=== PATIENT | male | born 1950 | race Caucasian/White ===

== ENCOUNTER 2018-03-05 15:47 | Emergency (ER) | payer MEDICARE, SELFPAY ==
[2018-03-05] VITALS (22 sets, daily range): BP systolic 151–206; BP diastolic 79–93; PULSE 74–110; RESP 14–29; TEMP 38.2–38.5; O2SAT 87–99
--- NOTE | 2018-03-05 16:22 | ED.GENADUL_ITS ---
Medical Decision Making <Ariel Mac MD - Last Filed: 03/05/18 16:22> ECG Data Attestation: I personally reviewed and interpreted this ECG (s) as follows: Prior ECG tracings: not available for review Interpretation: sinus rhyth, rate of 97, pr 455, no acute st t wave ischemic findings <SHEREE Flores - Last Filed: 03/05/18 19:41> Patient 67 year old male presenting for evaluation of URI, fevers and N/V. symptoms began 3 days ago. On exam, he appears dehydrated. Patient lives with his son secondary to worsening dementia. Overall, he is very appropriate. He denies feeling ill at this time but is warm to touch, has crackled in RLL. History of COPD. Active smoker. Patient is febrile at 38.5, will give Tylenol. Tachycardic at 110. O2 is low at 92% but this may be baseline for the patient given his length of smoking and hx of COPD. Patient does not feel SOB. Will hydrate the patient, obtain cxr and rapid flu. Discussed with patient and family who are in agreement. Rapid flu A positive. While he is >48 hours since onset of symptoms, he is at increase risk with his age, history of COPD, plan to treat with Tamiflu. CXR reviewed by radiologist: FINDINGS: Lungs: There is mild elevation of the right hemidiaphragm. No focal consolidation. Pleural space: No pneumothorax. Heart/Mediastinum: There is bilateral hilar prominence. The cardiomediastinal contours are within normal limits. Vasculature: Vascular calcifications. Upper abdomen: Bowel is seen between the diaphragm and liver which is most consistent with Chilaiditi's sign. Correlation with any chronic pain related to this finding suggested. Bones/joints: Skeletal degenerative changes. IMPRESSION: 1. No focal consolidation or pneumothorax. 2. Mild bilateral hilar prominence. This can be seen with prominent vascular structures or lymphadenopathy. Comparison with older imaging studies, if available, would be beneficial to document long-term stability of this finding. If indicated, cross-sectional imaging could be obtained. 3. Bowel is seen between the diaphragm and liver which is most consistent with Chilaiditi's sign. Correlation with any chronic pain related to this finding suggested. Other findings as above. Patient denies history of trauma, no pain in RUQ or right side of chest. Labs significant for hyponatremia at 130, he is receiving saline while here. Potassium 3.2, will replenish this orally while here. After receiving 1L of fluid, HR in 70s Discussed findings with the patient and his family. Will treat with Tamiflu. While no consolidation noted on cxr, I remain concerned for pneumonia with the crackles in the RLL, plan to treat for pneumonia as well. Encouraged hydration. Son will contact PCP tomorrow to schedule follow up appointment next week for reevaluation. We discussed new/worseneing symptoms and when to seek care urgently once again. All of their questions and cocnerns were addressed, they are in agreement with this plan. Primary care through [facility]. HPI <Ariel Mac MD - Last Filed: 03/05/18 16:22> General Date/Time Provider Initiated Documentation: 03/05/18 15:59 . Related Data Home Medications Medication Instructions Recorded Confirmed albuterol sulfate 2 puff INHALATION Q6H PRN 03/05/18 03/05/18 atorvastatin 10 mg PO DAILY 03/05/18 03/05/18 azithromycin See Rx Instructions .ROUTE 03/05/18 .COMPLEX #3 tab cholecalciferol (vitamin D3) 5,000 unit PO DAILY 03/05/18 03/05/18 [Vitamin D3] lisinopril 20 mg PO DAILY 03/05/18 03/05/18 metoprolol succinate 75 mg PO DAILY 03/05/18 03/05/18 oseltamivir [Tamiflu] 75 mg PO BID 5 Days #10 cap 03/05/18 thiamine HCl (vitamin B1) [Vitamin 100 mg PO DAILY 03/05/18 03/05/18 B-1] Previous Rx's Medication Instructions Recorded azithromycin See Rx Instructions .ROUTE 03/05/18 .COMPLEX #3 tab oseltamivir [Tamiflu] 75 mg PO BID 5 Days #10 cap 03/05/18 <SHEREE Flores - Last Filed: 03/05/18 19:41> General Mode of arrival: ambulatory . Limitations to Documentation: altered mental status (hx of dementia) . Information obtained by: patient and family (son) . HPI Narrative: Patient is a 67 year old male, history of dementia, COPD and active smoker, brought in by son whom he lives with, for c/c of cough, fevers and malaise. Patient is currently denying feeling unwell, cough or any symptoms. Son, who cares for him, reports that his father has been ill for the past 3 days. States he has been endorsing nonproductive cough, sore throat, body aches. Reports he vomited x 4 yesterday, none today. Reports poor po intake. Has noted patient to be warm but has not objectively measured temperature. Has not taken any medications for symptomatic management today. Denies CP or SOB. Currently denying abdominal pain. General Stated Complaint: RespSymp JUSTINE: 3 <SHEREE Flores - Last Filed: 03/05/18 19:41> Review of Systems limited secondary to history of dementia, son augmented with what patient has been endorsing at home Constitutional Reports as per HPI, Reports body ache(s), Reports chills, Reports fatigue, Reports fever(s), Denies headache(s), Reports malaise and Reports poor appetite ENT Denies vertigo, Denies otalgia, Denies headache(s), Reports nasal congestion, Reports nasal discharge, Reports sore throat, Denies throat swelling and Denies tongue swelling Cardiovascular Reports as per HPI, Denies chest pain, Denies chest pain at rest, Denies chest pain with activity, Denies pedal edema, Denies lightheadedness, Denies dyspnea and Denies dyspnea on exertion Respiratory Reports as per HPI, Reports chest congestion, Reports cough, Denies hemoptysis, Denies pain with cough, Denies dyspnea and Denies dyspnea on exertion Gastrointestinal Reports as per HPI, Denies abdominal pain, Denies change in bowel habits, Denies nausea and Reports vomiting (yesterday, none today) Genitourinary Reports system reviewed and no additional complaints, except as docu (denies change in urinary habits) Musculoskeletal Reports as per HPI, Denies abnormal gait and Reports other (body aches, denies pain at this time) Integumentary/Breasts Denies rash Neurologic Reports as per HPI, Denies abnormal gait, Denies vertigo, Denies headache(s) and Reports memory loss (son reports this waxes and wanes at baseline, no recent change) Psychiatric Reports memory loss (son reports this waxes and wanes at baseline, no recent change) Endocrine Reports fatigue Allergic/Immunologic Denies throat swelling and Denies tongue swelling [facility] <Ariel Mac MD - Last Filed: 03/05/18 16:22> Social History Smoking/Tobacco Use Status: Current every day <SHEREE Flores - Last Filed: 03/05/18 19:41> Const General: cooperative, comfortable, well developed, ill appearing and No well hydrated (appears dehydrated) Nutritional Appearance: average body habitus Orientation: alert and awake HENMT Head: normal to inspection Ears: hearing grossly normal bilaterally, external ears normal and TM's normal bilaterally General nose exam: external nose normal Face and sinus: normal facial exam, sinuses nontender and face symmetric Mouth: abnormal oral mucosae (patient appears dry), lip normal, tongue normal, mucous membranes dry, no trismus and No restricted motion Throat: posterior oropharynx normal, tonsils normal and uvula midline Eyes General: appearance normal, both eyes and all related structures Neck Neck: normal visual inspection, no lymphadenopathy and no meningeal signs Resp Effort & Inspection: normal respiratory effort, able to speak in complete sentences, cough, no respiratory distress and not tachypneic Auscultation: crackles and wheezes Cardio Rate: regular rate Rhythm: regular rhythm Heart Sounds: S1 normal and S2 normal GI Inspection: normal to inspection Palpation: soft and nontender Auscultation: normal bowel sounds Skin General skin exam: no rashes or lesions noted Trauma: no lacerations or abrasions Extrem General: normal to inspection, normal capillary refill, no pedal edema and no calf tenderness Psych Appearance: grossly normal and well kempt Mental Status: mental status grossly normal Speech and Movement: speech and movement normal <SHEREE Flores - Last Filed: 03/05/18 19:41> Vital Signs Temperature 38.5 C H 03/05/18 15:55 Pulse 110 H 03/05/18 15:55 Respiratory Rate 18 03/05/18 15:55 Pulse Oximetry 92 L 03/05/18 15:55 Temperature 38.5 C H 03/05/18 15:55 Pulse 110 H 03/05/18 15:55 Respiratory Rate 18 03/05/18 15:55 Respiratory Effort 03/05/18 15:59 Blood Pressure Position Sitting 03/05/18 15:55 Pulse Oximetry 92 L 03/05/18 15:55 Oxygen Delivery Method Room Air 03/05/18 15:55 Oxygen Flow Rate 0 03/05/18 15:55 Pain Level 0 03/05/18 15:55 Lab/Test Results Lab/Test Results: 03/05/18 16:04 Nasopharynx Influenza Types A,B Antigen - Pending
--- NOTE | 2018-03-05 16:25 | DI.RAD_ITS ---
SYMPTOM/DIAGNOSIS: COUGH FRONTAL AND LATERAL CHEST: No priors for comparison. Heart size is within normal limits. There is mild prominence of the pulmonary hilum bilaterally. This likely reflects prominent pulmonary vasculature. Mediastinal adenopathy cannot be entirely excluded. The lungs are clear. No effusions or pneumothoraces are identified. Degenerative changes are seen in the spine. IMPRESSION: No acute pulmonary process. Mild prominence of the pulmonary amparo bilaterally, likely reflecting prominent vascular structures. Mediastinal adenopathy cannot be entirely excluded. Correlation with prior examinations, if available, should be considered. Follow up as clinically appropriate.
[2018-03-05] MEDS: Normal Saline 1,000 ML 1000 ML IV (16:35)
[2018-03-05] MEDS: Acetaminophen 500 MG TAB 1000 MG PO (16:37)
[2018-03-05 16:50] LABS: Abs Immature Grans 0.03 k/cumm (0.0-0.09); Absolute Basophil Count 0.02 k/cumm (0.0-0.2); Absolute Eosinophil Count 0.01 k/cumm (0.0-0.7); Absolute Lymphocyte Count 1.16 k/cumm (1.2-3.4); Absolute Neutrophil Count 6.94 k/cumm (1.2-6.7); Basophils % 0.2; Eosinophils % 0.1; HGB 14.6 g/dL (13.5-17.5); Immature Grans % 0.3; Lymphocytes % 12.4; Mean Corp. HGB Concentration 34.8 g/dL (32.0-36.0); Mean Corpuscular Hemoglobin 30.4 pg (27.0-33.0); Mean Corpuscular Volume 87.5 fL (80-95); Mean Platelet Volume 9.2 fL (8.0-11.0); Monocytes % 12.8; Neutrophils % 74.2; Platelet Count 356 x1000/uL (130-400); RBC Distribution Width 14.1 % (11.8-14.1); White Blood Cell Count 9.36 k/cumm (4.4-10.8)
[2018-03-05 17:06] LABS: ALT 17 U/L (12-78); AST 29 U/L (15-37); Albumin 3.6 g/dL (3.4-5.0); Alkaline Phosphatase 96 U/L (46-116); Anion Gap 11.4 mmol/L (3-11); BUN 14 mg/dL (7-18); Bilirubin, Total 0.5 mg/dL (0.2-1.0); CO2 28.6 mmol/L (21.0-32.0); CREATININE 0.99 mg/dL (0.70-1.30); Calcium 9.2 mg/dL (8.5-10.1); Chloride 90 mmol/L (98-107); Glucose 111 mg/dL (70-100); Potassium 3.2 mmol/L (3.5-5.1); Sodium 130 mmol/L (136-145); Total Protein 8.3 g/dL (6.4-8.2); Troponin I 0.02 ng/mL (0.00-0.06)
--- NOTE | 2018-03-05 17:13 | DI.VRAD_ITS ---
EXAM: XR Chest, 2 Views EXAM DATE/TIME: 03/05/2018 4:27 PM CLINICAL HISTORY: 67 years old, male; Pain; Other: Cough flu + TECHNIQUE: XR of the chest, 2 views. COMPARISON: No relevant prior studies available. FINDINGS: Lungs: There is mild elevation of the right hemidiaphragm. No focal consolidation. Pleural space: No pneumothorax. Heart/Mediastinum: There is bilateral hilar prominence. The cardiomediastinal contours are within normal limits. Vasculature: Vascular calcifications. Upper abdomen: Bowel is seen between the diaphragm and liver which is most consistent with Chilaiditi's sign. Correlation with any chronic pain related to this finding suggested. Bones/joints: Skeletal degenerative changes. IMPRESSION: 1. No focal consolidation or pneumothorax. 2. Mild bilateral hilar prominence. This can be seen with prominent vascular structures or lymphadenopathy. Comparison with older imaging studies, if available, would be beneficial to document long-term stability of this finding. If indicated, cross-sectional imaging could be obtained. 3. Bowel is seen between the diaphragm and liver which is most consistent with Chilaiditi's sign. Correlation with any chronic pain related to this finding suggested. Other findings as above. Dictated and Authenticated by: Radha Cartagena MD. Ordering:BINDU Valencia MD
[2018-03-05] MEDS: POTASSIUM CHLORIDE 20 MEQ, POTASSIUM CHLORIDE 10 MEQ 30 MEQ PO (17:34)
[2018-03-05] MEDS: Ibuprofen 600 MG TAB PO (17:34)
== END 2018-03-05 17:51 | disposition home or self-care (01) ==
PROVIDERS: Emergency Provider Physician Assistant
DX: J10.1 Influenza due to other identified influenza virus with other respiratory manifestations (principal); J44.9 Chronic obstructive pulmonary disease, unspecified; F17.210 Nicotine dependence, cigarettes, uncomplicated
CPT/HCPCS: 36415; 80053; 87449; 96360; 99284; 71046; 84484; 85025

== ENCOUNTER 2018-09-18 18:06 | Inpatient (IN) | payer MEDICARE, SELFPAY ==
[2018-09-18] VITALS (37 sets, daily range): BP systolic 189–257; BP diastolic 54–191; PULSE 63–98; RESP 16–40; TEMP 36.7; O2SAT 91–95
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
[2018-09-18] MEDS: Ibuprofen 400 MG TAB PO (20:33)
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
[2018-09-18 21:08] LABS: Absolute Basophil Count 0.04 k/cumm (0.0-0.2); Absolute Eosinophil Count 0.07 k/cumm (0.0-0.7); Absolute Lymphocyte Count 2.06 k/cumm (1.2-3.4); Absolute Monocyte Count 1.14 k/cumm (0.11-0.7); Absolute Neutrophil Count 18.97 k/cumm (1.2-6.7); Basophils % 0.2; Eosinophils % 0.3; HCT 40.2 % (40.0-50.0); HGB 13.7 g/dL (13.5-17.5); Immature Grans % 0.4; Lymphocytes % 9.2; Mean Corp. HGB Concentration 34.1 g/dL (32.0-36.0); Mean Corpuscular Hemoglobin 30.5 pg (27.0-33.0); Mean Corpuscular Volume 89.5 fL (80-95); Mean Platelet Volume 9.5 fL (8.0-11.0); Monocytes % 5.1; Neutrophils % 84.8; Platelet Count 323 x1000/uL (130-400); RBC 4.49 m/cumm (4.50-6.00); RBC Distribution Width 15.1 % (11.8-14.1); White Blood Cell Count 22.37 k/cumm (4.4-10.8)
[2018-09-18 21:22] LABS: ALT 15 U/L (12-78); AST 19 U/L (15-37); Alkaline Phosphatase 86 U/L (46-116); Anion Gap 6.5 mmol/L (3-11); BUN 19 mg/dL (7-18); Bilirubin, Total 0.5 mg/dL (0.2-1.0); CO2 29.5 mmol/L (21.0-32.0); CREATININE 1.12 mg/dL (0.70-1.30); Calcium 8.9 mg/dL (8.5-10.1); Chloride 101 mmol/L (98-107); Glucose 182 mg/dL (70-100); Magnesium 1.7 mg/dL (1.8-2.4); Potassium 3.6 mmol/L (3.5-5.1); Sodium 137 mmol/L (136-145)
[2018-09-18] MEDS: Omnipaque 350 MG/ML 100 ML BTL IJ (21:29)
[2018-09-18 21:33] LABS: Troponin I < 0.05 ng/mL (0.00-0.06)
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
--- NOTE | 2018-09-18 22:39 | NUR.NOTE ---
Nursing Note: Patients petal pulses are only presents via Doppler.
[2018-09-18] MEDS: Metoprolol 50 MG TAB 75 MG PO (23:26)
[2018-09-18] MEDS: Ketorolac 15 MG/ML VIAL IVP (23:26)
[2018-09-18] MEDS: metroNIDAZOLE 500 MG/100 ML BAG 100 MG IVPB (23:26)
[2018-09-18] MEDS: Lisinopril 20 MG TAB 40 MG PO (23:59)
[2018-09-19] VITALS (78 sets, daily range): BP systolic 181–248; BP diastolic 72–157; PULSE 57–82; RESP 4–25; TEMP 36.6–37.4; O2SAT 89–98
[2018-09-19] MEDS: levoFLOXacin 750 MG/150 ML BAG 100 MG IVPB (00:18)
[2018-09-19] MEDS: Normal Saline 1,000 ML 125 ML IV (00:18)
--- NOTE | 2018-09-19 01:55 | NUR.NOTE ---
Nursing Note: patient sleeping, IV med and fluids infusing well, chest tube patient with no air leak, blood pressure remains high.
[2018-09-19] MEDS: Acetaminophen 325 MG TAB 650 MG PO (03:20)
[2018-09-19] MEDS: MORPHine 2 MG/ML SYR IVP ×2 (03:22→11:23)
[2018-09-19] MEDS: Ketorolac 15 MG/ML VIAL IVP (07:00)
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
--- NOTE | 2018-09-19 08:30 | DI.RAD_ITS ---
SYMPTOM/DIAGNOSIS: PNEUMOTHORAX, S/P CHEST TUBE PORTABLE AP CHEST at 0813 am: Comparison is made with chest CT of the previous day. A chest tube has been inserted with a pigtail in the left upper lobe. There is re-expansion of the pneumothorax. Minimal densities are noted at the left lung base. The right lung appears clear. The heart size is normal. IMPRESSION: No visible pneumothorax status post placement of left sided chest tube.
--- NOTE | 2018-09-19 08:44 | DI.VRAD_ITS ---
EXAM: XR Chest, 1 View EXAM DATE/TIME: 09/19/2018 8:12 AM CLINICAL HISTORY: 67 years old, male; Device placement; Chest tube TECHNIQUE: Imaging protocol: XR of the chest, 1 view. COMPARISON: SC XR CHEST 2V PA LATERAL 09/18/2018 8:02 PM FINDINGS: Lungs: Mildly prominent central pulmonary vasculature. No overt pulmonary edema. Minimal basilar atelectasis. No consolidations. Pleural space: Left-sided pigtail catheter now demonstrated with resolution of previously noted left sided pneumothorax. Heart/Mediastinum: Cardiac size normal. Diaphragm: Elevation right hemidiaphragm. Vasculature: Atherosclerotic calcification within a tortuous aorta. Bones/joints: Left fourth and fifth posterior rib fractures. Remote left lateral rib fractures. Mild degenerative changes noted throughout the spine. IMPRESSION: 1. Left-sided pigtail catheter now demonstrated with resolution of previously noted left sided pneumothorax. 2. Minimal dependent basilar atelectasis. Dictated and Authenticated by: Carlos Manuel Hernandez MD. Ordering:MERA Pacheco MD
[2018-09-19 09:01] LABS: Abs Immature Grans 0.03 k/cumm (0.0-0.09); Absolute Basophil Count 0.03 k/cumm (0.0-0.2); Absolute Eosinophil Count 0.04 k/cumm (0.0-0.7); Absolute Lymphocyte Count 0.89 k/cumm (1.2-3.4); Absolute Monocyte Count 0.71 k/cumm (0.11-0.7); Basophils % 0.2; Eosinophils % 0.3; HCT 37.1 % (40.0-50.0); HGB 12.8 g/dL (13.5-17.5); Immature Grans % 0.2; Lymphocytes % 6.9; Mean Corp. HGB Concentration 34.5 g/dL (32.0-36.0); Mean Corpuscular Hemoglobin 30.5 pg (27.0-33.0); Mean Corpuscular Volume 88.3 fL (80-95); Mean Platelet Volume 9.5 fL (8.0-11.0); Monocytes % 5.5; Neutrophils % 86.9; Platelet Count 282 x1000/uL (130-400); RBC Distribution Width 14.9 % (11.8-14.1); White Blood Cell Count 12.89 k/cumm (4.4-10.8)
[2018-09-19 09:09] LABS: ALT 18 U/L (12-78); AST 27 U/L (15-37); Albumin 3.5 g/dL (3.4-5.0); Alkaline Phosphatase 85 U/L (46-116); Anion Gap 7.7 mmol/L (3-11); BUN 15 mg/dL (7-18); Bilirubin, Total 0.9 mg/dL (0.2-1.0); CO2 26.3 mmol/L (21.0-32.0); CREATININE 0.85 mg/dL (0.70-1.30); Calcium 8.5 mg/dL (8.5-10.1); Chloride 101 mmol/L (98-107); Glucose 121 mg/dL (70-100); Potassium 3.5 mmol/L (3.5-5.1); Sodium 135 mmol/L (136-145); Total Protein 6.9 g/dL (6.4-8.2)
--- NOTE | 2018-09-19 10:45 | DI.RAD_ITS ---
SYMPTOM/DIAGNOSIS: F/U PNEUMOTHORAX AND CHEST TUBE PORTABLE AP CHEST AT 1111 AM: Comparison is made with exam performed earlier the same day at 0813 am. There has been no change in the position of the left sided chest tube. No pneumothorax is visible. Minimal densities are seen at the left lung base.
[2018-09-19] MEDS: Albuterol/Ipratropium 3 ML UPD VIAL UPD ×2 (10:55→18:03)
[2018-09-19] MEDS: metroNIDAZOLE 500 MG/100 ML BAG 100 MG IVPB ×3 (11:07→21:31)
[2018-09-19] MEDS: Metoprolol CR 25 MG TABCR 75 MG PO (11:08)
[2018-09-19] MEDS: Atorvastatin 10 MG TAB PO (11:08)
[2018-09-19] MEDS: Lisinopril 20 MG TAB 40 MG PO (11:08)
[2018-09-19] MEDS: Bupivacaine LIPOSOME/PF 133 MG/10 ML VIAL IJ (11:40)
[2018-09-19] MEDS: Bupivacaine 0.25% Pres-Free 30 ML VIAL (11:40)
--- NOTE | 2018-09-19 11:52 | DI.VRAD_ITS ---
EXAM: XR Chest, 1 View EXAM DATE/TIME: 09/19/2018 8:51 AM CLINICAL HISTORY: 67 years old, male; Device placement; Patient HX: Chest tube on waerseal TECHNIQUE: Imaging protocol: XR of the chest, 1 view. COMPARISON: SC XR PORTABLE CHEST AP POST LINE 09/19/2018 8:13 AM FINDINGS: Tubes, catheters and devices: Stable chest tube terminates in the left upper lobe. Lungs: Unremarkable. No consolidation. Pleural space: No significant pneumothorax. Heart/Mediastinum: Stable cardiac silhouette Diaphragm: Elevated right hemidiaphragm Bones/joints: Osseous structures are stable IMPRESSION: 1. Stable chest tube terminates in the left upper lobe. 2. No significant pneumothorax. Dictated and Authenticated by: Willem Herrera MD. Ordering:ANTHONY Cid MD
[2018-09-19] MEDS: Ondansetron 4 MG/2 ML VIAL IVP (12:24)
[2018-09-19] MEDS: CIPROFLOXACIN 400 MG/200 ML BAG 200 MG IVPB (12:25)
--- NOTE | 2018-09-19 12:52 | PDOC.ANES ---
Anesthesia Note Consulted by Dr Ramos for Erector Spinae Block for painful rib fractures on pt with COPD and current painful coughing deep breathing. See anesthesia procedure note for details. Following block we were able to get patient up standing and into chair. He is answering my questions regarding pain but looks better to myself and his RN and reports mostly discomfort at chest tube site. Had one episode of emesis once in chair but he had received a dose of morphine just before block. vital signs were stable. I ordered one dose zofran 4 mg which has controlled the nausea.
--- NOTE | 2018-09-19 13:11 | NUR.NOTE ---
Shabnam Renee in to perform procedure for pain relief. Time out done, procedure started @ 1142, complete at 1205. Pt jorge alberto procedure well. OOB to chair for 3-0 mins post procedure. Pt had been medicated with 2 mg morphine at 1130, he did vomit approx 50 ml post procedure while sitting in the chair. BTB at this time.Nursing Note:
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
[2018-09-19] MEDS: Ibuprofen 600 MG TAB PO (17:35)
[2018-09-19] MEDS: Budesonide/Formoterol 160/4.5 6 GM 60 PUFF INH IH (20:10)
[2018-09-19] MEDS: Famotidine 20 MG TAB PO (20:10)
[2018-09-19] MEDS: amLODIPine 5 MG TAB PO (20:10)
[2018-09-20] MEDS: Ibuprofen 600 MG TAB PO ×3 (00:23→12:53)
[2018-09-20] MEDS: CIPROFLOXACIN 400 MG/200 ML BAG 200 MG IVPB (00:23)
[2018-09-20] MEDS: Albuterol/Ipratropium 3 ML UPD VIAL UPD (00:23)
[2018-09-20] MEDS: Normal Saline Flush 10 ML SYR IVP ×2 (00:23→08:21)
[2018-09-20 00:37] VITALS: BP 175/74; PULSE 70; RESP 18; TEMP 36; O2SAT 94
[2018-09-20 00:53] VITALS: RESP 4; RESP 5; O2SAT 95
[2018-09-20] MEDS: HYDROcodone 5/Acetaminophen 325 TAB PO (01:38)
[2018-09-20] MEDS: metroNIDAZOLE 500 MG/100 ML BAG 100 MG IVPB ×2 (04:11→10:15)
[2018-09-20 06:54] LABS: Abs Immature Grans 0.02 k/cumm (0.0-0.09); Absolute Basophil Count 0.04 k/cumm (0.0-0.2); Absolute Eosinophil Count 0.15 k/cumm (0.0-0.7); Absolute Lymphocyte Count 0.82 k/cumm (1.2-3.4); Absolute Monocyte Count 0.59 k/cumm (0.11-0.7); Absolute Neutrophil Count 7.43 k/cumm (1.2-6.7); Basophils % 0.4; Eosinophils % 1.7; HCT 33.7 % (40.0-50.0); HGB 11.5 g/dL (13.5-17.5); Immature Grans % 0.2; Lymphocytes % 9.1; Mean Corp. HGB Concentration 34.1 g/dL (32.0-36.0); Mean Corpuscular Hemoglobin 30.3 pg (27.0-33.0); Mean Corpuscular Volume 88.9 fL (80-95); Mean Platelet Volume 9.6 fL (8.0-11.0); Monocytes % 6.5; Neutrophils % 82.1; Platelet Count 207 x1000/uL (130-400); RBC 3.79 m/cumm (4.50-6.00); White Blood Cell Count 9.05 k/cumm (4.4-10.8)
--- NOTE | 2018-09-20 07:39 | DI.RAD_ITS ---
SYMPTOM/DIAGNOSIS: F/U PNEUMOTHORAX AND CHEST TUBE PA AND LATERAL CHEST AT 0729 AM: Comparison is made with the previous day's exam. There has been no change in position of the left sided chest catheter. Left fourth and fifth rib fractures are again noted. No pneumothorax is visible. There is atelectasis at the left lung base. The right lung appears clear. The heart size is normal. IMPRESSION: No evidence of pneumothorax. Left lower lobe atelectasis.
[2018-09-20 07:50] VITALS: RESP 19; O2SAT 96
--- NOTE | 2018-09-20 07:50 | DI.VRAD_ITS ---
EXAM: XR Chest, 2 Views EXAM DATE/TIME: 09/20/2018 7:38 AM CLINICAL HISTORY: 67 years old, male; Patient HX: Ptx, chest tube on waterseal TECHNIQUE: Imaging protocol: XR of the chest, 2 views. COMPARISON: SC XR PORTABLE CHEST AP POST LINE 09/19/2018 11:10 AM FINDINGS: Tubes, catheters and devices: There is a left pleural catheter in position with coil in the upper lateral thorax. Lungs: There is consolidation in the left retrocardiac region, favor atelectasis. Pleural space: No pneumothorax . Heart/Mediastinum: Unremarkable. No cardiomegaly. Vasculature: Atherosclerotic aorta. Bones/joints: Left posterior fourth and fifth rib fractures noted. IMPRESSION: Left chest tube in stable position. No pneumothorax. Small region of retrocardiac consolidation, likely atelectasis. Left posterior rib fractures again seen. Dictated and Authenticated by: Radha Smith MD. Ordering:ANTHONY Cid MD
[2018-09-20 08:15] VITALS: RESP 19; O2SAT 96
[2018-09-20] MEDS: Polyethylene Glycol 3350 17 GM PACKET PO (08:19)
[2018-09-20] MEDS: Lisinopril 20 MG TAB 40 MG PO (08:19)
[2018-09-20] MEDS: amLODIPine 5 MG TAB PO (08:20)
[2018-09-20] MEDS: Famotidine 20 MG TAB PO (08:20)
[2018-09-20] MEDS: Metoprolol CR 25 MG TABCR 75 MG PO (08:20)
[2018-09-20] MEDS: Atorvastatin 10 MG TAB PO (08:20)
[2018-09-20] MEDS: Aspirin 325 MG TAB PO (08:20)
[2018-09-20 08:30] VITALS: BP 171/75; PULSE 60; RESP 22; TEMP 36.8; O2SAT 91
[2018-09-20] MEDS: Budesonide/Formoterol 160/4.5 6 GM 60 PUFF INH IH (11:36)
--- NOTE | 2018-09-20 11:49 | W.PM.PROGNOT ---
Date of Service Date of service: 09/20/18 Time of Service: 11:50 Assessment and Plan (1) Hypertension: Current visit: Yes Status: Chronic A\\ Still Hypertensive but improved since adding amlodipine. Appreciate Dr. Arredondo's assistance with that P\\ Discharge with Amlodipine 10 mg daily Follow up with [place] PCP Qualifiers: Hypertension type: essential hypertension Qualified Code(s): I10 - Essential (primary) hypertension (2) COPD (chronic obstructive pulmonary disease): Current visit: Yes Status: Chronic A\\ No wheezing since adding symbicort 2 puff BID P\\ Will discharge with a Rx for symbicort and have him follow up with PCP at [place] Qualifiers: COPD type: unspecified COPD Qualified Code(s): J44.9 - Chronic obstructive pulmonary disease, unspecified (3) Diverticulitis large intestine: Current visit: Yes Status: Acute A\\ Incidental finding of diverticulitis on CT scan Patient asymptomatic although he has cognitive impairment and I am not sure he would tell us if he had pain P\\ D/C on antibiotics for a total of 10 days Qualifiers: Diverticulitis bleeding: without bleeding Diverticulitis complication: without perforation or abscess Qualified Code(s): K57.32 - Diverticulitis of large intestine without perforation or abscess without bleeding (4) Pneumothorax, left: Current visit: Yes Status: Acute A\\ CXR this am showed no PTX. Has been on waterseal all night. No increased SOB. SATS holding in the low 90's P\\ Chest tube removed. Will watch him for about 1 hour if no increased SOB or pain will D/C home Continue with ISP at home while awake (5) Left wrist fracture: Current visit: Yes Status: Acute A\\ pain seems controlled with ibuprofen and Tylenol Would like to avoid narcotics due to his cognitive impairment P\\ Follow up with Dr. Stewart this week Qualifiers: Encounter type: subsequent encounter Fracture type: closed Fracture healing: with routine healing Qualified Code(s): S62.102D - Fracture of unspecified carpal bone, left wrist, subsequent encounter for fracture with routine healing (6) Left rib fracture: Current visit: Yes Status: Acute A\\ Did well with the rib block. Minimal pain P\\ Ibuprofen and Tylenol for pain Qualifiers: Encounter type: initial encounter Rib fracture type: multiple ribs Fracture type: closed Qualified Code(s): S22.42XA - Multiple fractures of ribs, left side, initial encounter for closed fracture Subjective Interval history since last seen: Fred is doing well. He is sitting up in the bed watching TV comfortably. He doesn't remember braking his wrist. No complaints of SOB. Per nursing staff patient was limping a little more this am and complaining of right knee pain. When asked he tells me the pain has subsided Exam Resp Effort & Inspection: normal respiratory effort Auscultation: clear to auscultation bilaterally Cardio Rate: regular rate Rhythm: regular rhythm GI Inspection: normal to inspection Palpation: soft and nontender Extrem Right lower extremity: normal to inspection and full ROM; no edema and joint enlargement noted Other: Left thigh with an abrasion. NO signs of infection. Left lateral calf with abrasions without signs of infection Objective Objective Clinical Data: Abnormal lab results 09/20/18 Range/Units 06:35 RBC 3.79 L (4.50-6.00) m/cumm Hgb 11.5 L (13.5-17.5) g/dL Hct 33.7 L (40.0-50.0) % RDW 15.0 H (11.8-14.1) % Absolute Neutrophils 7.43 H (1.2-6.7) k/cumm Absolute Lymphocytes 0.82 L (1.2-3.4) k/cumm Vital Signs Temperature 98.2 F 09/20/18 08:30 Temperature Source Tympanic 09/20/18 08:30 Pulse 60 09/20/18 08:30 Pulse Rhythm Regular 09/20/18 07:50 Pulse 69 09/19/18 12:01 Respiratory Rate 22 09/20/18 08:30 Respiratory Effort Splinting 09/20/18 07:50 Respiratory Depth Shallow 09/20/18 07:50 Respiratory Pattern Normal 09/20/18 07:50 Blood Pressure 171/75 H 09/20/18 08:30 Blood Pressure Mean 106 09/19/18 13:58 Blood Pressure Position Supine 09/19/18 02:50 Pulse Oximetry 91 L 09/20/18 08:30 Oxygen Delivery Method Room Air 09/20/18 08:30 Oxygen Flow Rate 0 09/20/18 08:30 Pain Level 0 09/20/18 08:30 Comment 09/20/18 08:30 Intake & Output 09/19/18 09/19/18 09/20/18 11:59 23:59 11:59 Intake Total 1450 / 2050 600 / 2050 1270 / 1270 Output Total 475 / 1075 600 / 1075 425 / 425 Balance 975 / 975 0 / 975 845 / 845 Weight 139 lb 15.896 oz Intake: IV 1250 / 1850 600 / 1850 200 / 200 Oral 200 / 200 1070 / 1070 Output: Chest Tube Drainage 0 / 0 0 / 0 0 / 0 Urine 475 / 1075 600 / 1075 425 / 425 Other: Urine Color Light Mel Dark Mel Dark Mel Urine Appearance Clear Clear Clear Urine Odor None Normal Voiding Methods Urinal Urinal Urinal Laboratory Results WBC 9.05 k/cumm (4.4-10.8) 09/20/18 06:35 RBC 3.79 m/cumm (4.50-6.00) L 09/20/18 06:35 Hgb 11.5 g/dL (13.5-17.5) L 09/20/18 06:35 Hct 33.7 % (40.0-50.0) L 09/20/18 06:35 MCV 88.9 fL (80-95) 09/20/18 06:35 MCH 30.3 pg (27.0-33.0) 09/20/18 06:35 MCHC 34.1 g/dL (32.0-36.0) 09/20/18 06:35 RDW 15.0 % (11.8-14.1) H 09/20/18 06:35 Plt Count 207 x1000/uL (130-400) 09/20/18 06:35 MPV 9.6 fL (8.0-11.0) 09/20/18 06:35 Immature Gran % 0.2 09/20/18 06:35 82.1 09/20/18 06:35 9.1 09/20/18 06:35 6.5 09/20/18 06:35 1.7 09/20/18 06:35 0.4 09/20/18 06:35 Absolute Neutrophils 7.43 k/cumm (1.2-6.7) H 09/20/18 06:35 Absolute Lymphocytes 0.82 k/cumm (1.2-3.4) L 09/20/18 06:35 Absolute Monocytes 0.59 k/cumm (0.11-0.7) 09/20/18 06:35 Absolute Eosinophils 0.15 k/cumm (0.0-0.7) 09/20/18 06:35 Absolute Basophils 0.04 k/cumm (0.0-0.2) 09/20/18 06:35 Sodium 135 mmol/L (136-145) L 09/19/18 08:35 Potassium 3.5 mmol/L (3.5-5.1) 09/19/18 08:35 Chloride 101 mmol/L (98-107) 09/19/18 08:35 Carbon Dioxide 26.3 mmol/L (21.0-32.0) 09/19/18 08:35 7.7 mmol/L (3-11) 09/19/18 08:35 BUN 15 mg/dL (7-18) 09/19/18 08:35 0.85 mg/dL (0.70-1.30) 09/19/18 08:35 >= 60.00 (mL/min/1.73m2) 09/19/18 08:35 Glucose 121 mg/dL (70-100) H 09/19/18 08:35 Calcium 8.5 mg/dL (8.5-10.1) 09/19/18 08:35 Magnesium 1.7 mg/dL (1.8-2.4) L 09/18/18 20:55 0.9 mg/dL (0.2-1.0) 09/19/18 08:35 AST 27 U/L (15-37) 09/19/18 08:35 ALT 18 U/L (12-78) 09/19/18 08:35 85 U/L (46-116) 09/19/18 08:35 < 0.05 ng/mL (0.00-0.06) 09/18/18 20:55 6.9 g/dL (6.4-8.2) 09/19/18 08:35 3.5 g/dL (3.4-5.0) 09/19/18 08:35 Patient ABO/Rh A Positive 09/18/18 20:55 Antibody Screen Positive 09/18/18 20:55 Antibody Identification Anti-E 09/18/18 20:55 Antigen Identification E Antigen - NEGATIVE 09/18/18 20:55
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
[2018-09-20] MEDS: Amoxicillin 875/Clav. 125 TAB PO (15:09)
== END 2018-09-20 15:20 | disposition home or self-care (01) | DRG 200 ==
LOC: ER 23:32 → ICU 09-19 07:05 → MS 09-20 13:04 → ICU 09-24 09:38
PROVIDERS: Admitting Provider Surgery; Emergency Provider Student in an Organized Health Care Education/Training Program; PCP Nurse Practitioner Family; Visit Provider Surgery
DX: S27.0XXA Traumatic pneumothorax, initial encounter (principal); S52.572A Other intraarticular fracture of lower end of left radius, initial encounter for closed fracture; S52.615A Nondisplaced fracture of left ulna styloid process, initial encounter for closed fracture; S22.42XA Multiple fractures of ribs, left side, initial encounter for closed fracture; R07.81 Pleurodynia; T14.8XXA Other injury of unspecified body region, initial encounter; V86.59XA Driver of other special all-terrain or other off-road motor vehicle injured in nontraffic accident, initial encounter; I10 Essential (primary) hypertension; J44.9 Chronic obstructive pulmonary disease, unspecified; I25.10 Atherosclerotic heart disease of native coronary artery without angina pectoris; F17.210 Nicotine dependence, cigarettes, uncomplicated
CPT/HCPCS: 32551; 36415; 71045; 74177; 76942; 80053; 86850; 86900; 86901; 94640; 96361; 96365; 96366; 96367; 96375; 99221; 99223; 99239; 99291; NC; 70450; 71046; 71260; 72125; 73030; 73110; 83735; 84484; 85025; 86870; 86902; J0744; J1885; J1956; J2270; J2405; J3490; J7620

== ENCOUNTER 2018-10-09 10:59 | Day surgery (SDC) | payer MEDICARE, SELFPAY ==
[2018-10-09 11:13] VITALS: BP 143/68; PULSE 61; RESP 18; TEMP 36.5; O2SAT 98
[2018-10-09] MEDS: Lactated Ringers 1,000 ML 80 ML IV (12:00)
[2018-10-09] MEDS: ceFAZolin 2 GM/50 ML BAG IVPB (12:22)
--- NOTE | 2018-10-09 13:58 | W.PM.DSUDISC ---
Discharge Plan Disposition Patient Disposition: HOME Condition: Good Discharge Details Reason For Visit: (L) RADUIS FRACTURE Attending Provider: Serjio Aguirre Primary Care Provider: Mai Ahuja Home Meds and New Rx's Prescriptions: New acetaminophen 500 mg tablet 500 mg PO Q8H PRN (Reason: pain) Qty: 60 RF: 3 Continued atorvastatin 10 mg Tablet 10 mg PO DAILY RF: 0 lisinopril 20 mg Tablet 40 mg PO DAILY RF: 0 thiamine HCl (vitamin B1) [Vitamin B-1] 100 mg Tablet 100 mg PO DAILY RF: 0 metoprolol succinate 25 mg Tablet Extended Release 24 Hr 75 mg PO DAILY RF: 0 albuterol sulfate 90 mcg/actuation Hfa Aerosol Inhaler 2 puff INHALATION Q6H PRNRF: 0 aspirin 325 mg Tablet 325 mg PO DAILY RF: 0 amlodipine 5 mg Tablet 10 mg PO DAILY Qty: 60 RF: 0 Symbicort 160-4.5 mcg/actuation Hfa Aerosol Inhaler 2 puff inhalation BID Qty: 6 RF: 1 famotidine 20 mg Tablet 20 mg PO BID Qty: 60 RF: 0 polyethylene glycol 3350 17 gram Powder In Packet 17 g PO DAILY PRN (Reason: constipation) Qty: 30 RF: 0 hydrocodone-acetaminophen 5-325 mg Tablet 1 tab PO Q6H PRN PRN (Reason: pain) Qty: 8 RF: 0 Changed ibuprofen [IBU] 600 mg Tablet 600 mg PO Q8H PRN PRN (Reason: pain) Qty: 30 RF: 3 Discontinued acetaminophen [Tylenol] 325 mg Tablet 650 mg PO Q6H PRN PRN (Reason: pain) Qty: 30 RF: 0 Discharge Instructions Additional Instructions: Activity: You should keep the hand/wrist elevated as much as possible for the first few days. You may use the other fingers as tolerated but avoid trying to do too much too soon. You may perform light activities with the splint in place. Dressing/Cast: Your splint should stay in place at all times. Do NOT get it wet. You may loosen the WILMER wrap if you feel it is too tight and then rewrap more loosely. Medications: - You should take Tylenol and Ibuprofen for baseline pain control. - You have been prescribed a stronger pain medication, Hydrocodone, for breakthrough pain. - You may apply ice over the wrist, just double bag so it doesn't get wet. Follow-up: 10-14 days Referrals: Serjio Aguirre MD [ [facility] STAFF PHYSICIAN] - Equipment/Supplies: Splint and Sling Activity:: Elevate Remove Dressings/Wound Care:: Do Not Remove Shower/Bathe:: Cover Diet:: As Tolerated Discharge Orders Discharge Orders: Discharge Order (Routine); Ordered 10/09/18 Ordered By: Serjio Aguirre DS: Diagnosis Discharge Diagnosis (1) Closed left radial fracture: Status: Acute
[2018-10-09 14:16] VITALS: BP 185/62; PULSE 58; RESP 13; TEMP 36.3; O2SAT 97
[2018-10-09 14:20] VITALS: BP 197/93; PULSE 55; RESP 16; TEMP 36.3; O2SAT 97
[2018-10-09 14:25] VITALS: BP 174/57; PULSE 56; RESP 20; TEMP 36.3; O2SAT 97
[2018-10-09 14:40] VITALS: BP 181/69; PULSE 55; RESP 20; TEMP 36.3; O2SAT 96
--- NOTE | 2018-10-09 14:47 | DI.RAD_ITS ---
SYMPTOM/DIAGNOSIS: LEFT DISTAL RADIUS FRACTURE LEFT WRIST: Two views are seen of the left wrist. The patient is now status post open reduction, internal fixation of the distal left radial fracture. Alignment appears near anatomic. Orthopaedic hardware appears in good position. There is a nondisplaced ulnar styloid process fracture present.
[2018-10-09] MEDS: HYDROcodone 5/Acetaminophen 325 TAB PO (15:12)
[2018-10-09 15:41] VITALS: BP 175/74; PULSE 60; RESP 18; TEMP 35.9; O2SAT 92
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
[2018-10-10] MEDS: Bupivacaine LIPOSOME/PF 133 MG/10 ML VIAL IJ (12:15)
[2018-10-10] MEDS: Bupivacaine 0.25% Pres-Free 30 ML VIAL (12:15)
== END 2018-10-09 16:14 | disposition home or self-care (01) ==
PROVIDERS: PCP Nurse Practitioner Family; Visit Provider Student in an Organized Health Care Education/Training Program
PROC: (CPT 25607; principal; 2018-10-09 12:00)
DX: S52.502A Unspecified fracture of the lower end of left radius, initial encounter for closed fracture (principal); V86.95XA Unspecified occupant of 3- or 4- wheeled all-terrain vehicle (ATV) injured in nontraffic accident, initial encounter; G89.18 Other acute postprocedural pain; F17.210 Nicotine dependence, cigarettes, uncomplicated; I10 Essential (primary) hypertension; J44.9 Chronic obstructive pulmonary disease, unspecified
CPT/HCPCS: 25607; C1713; 73100; 73110; J0690; J1100; J2250; J2405; L3650

== ENCOUNTER 2018-10-09 12:52 | Outpatient (CLI) | payer MEDICARE, SELFPAY ==
--- NOTE | 2018-10-09 11:55 | DI.RAD_ITS ---
SYMPTOM/DIAGNOSIS: EVAL CLOSED LT RADIUS FRACTURE, L INCLUDE LUP TO MID SHAFT, S52.92XA LEFT WRIST: Three views. Comparison 09/18/18 There is a comminuted fracture involving the distal left radius. The fracture extends obliquely and extends from the distal diaphysis in to the articular surface. There is mild impaction of the fracture. There is also mild lateral angulation of the distal fracture. There is involvement of the articular surface of the distal radius. There is a nondisplaced fracture through the base of the ulnar styloid process. Overall there does not appear to be significant change in alignment of the fracture compared to the examination from 09/18/18 No new fractures or dislocations are appreciated. Vascular calcifications are seen in the soft tissues. There is again seen an ovoid radiopaque foreign body seen in the space adjacent to the first metacarpal. IMPRESSION: 1. Angulated mildly impacted comminuted intra-articular fracture of the distal left radius. 2. Ulnar styloid process fracture.
== END 2018-10-09 13:12 ==
PROVIDERS: PCP Nurse Practitioner Family; Visit Provider Student in an Organized Health Care Education/Training Program
DX: S52.572D Other intraarticular fracture of lower end of left radius, subsequent encounter for closed fracture with routine healing (principal); S52.615D Nondisplaced fracture of left ulna styloid process, subsequent encounter for closed fracture with routine healing
CPT/HCPCS: 73110

== ENCOUNTER 2018-10-26 11:38 | Outpatient (CLI) | payer MEDICARE, SELFPAY ==
--- NOTE | 2018-10-26 10:31 | DI.RAD_ITS ---
SYMPTOM/DIAGNOSIS: F/U LEFT WRIST: 10/26 Three views were obtained and show previously described fracture of the distal radius with plate and screw fixation in place. Alignment appears unchanged in comparison with the intraoperative films of October 09. Ulnar styloid fracture again noted as well.
== END 2018-10-26 11:58 ==
PROVIDERS: PCP Nurse Practitioner Family; Referring Provider Nurse Practitioner Family; Visit Provider Student in an Organized Health Care Education/Training Program
DX: S52.92XA Unspecified fracture of left forearm, initial encounter for closed fracture (principal); X58.XXXA Exposure to other specified factors, initial encounter
CPT/HCPCS: 73110; L3908

== ENCOUNTER 2020-08-21 10:13 | Emergency (ER) | payer MEDICARE, SELFPAY ==
[2020-08-21] VITALS (86 sets, daily range): BP systolic 86–222; BP diastolic 54–123; PULSE 56–98; RESP 11–26; TEMP 36.5; O2SAT 77–98
--- NOTE | 2020-08-21 10:15 | RT.EKG_ITS ---
APPROVED REPORT Exam: Resting ECG Reason for Exam: facial droop, possible stroke Patient Location: E HR:71 bpm ECG Measurements Heart Rate 71 AXIS NC 167 P 80 QRSd 98 QRS 2 QT 422 T 69 QTc 457 Conclusion Sinus rhythm...normal P axis, V-rate 60- 99 Ventricular premature complex...V complex w/ short R-R interval Anterior infarct, old...Q >40mS, abnormal ST-T, V2-V5. No STEMI. I have reviewed and interpreted ECG and agree with software generated interpretation.
--- NOTE | 2020-08-21 10:30 | DI.CT_ITS ---
Exam(s) CT BRAIN NECK CTA EXAM: CT BRAIN NECK CTA CLINICAL HISTORY: right facial droop, dysphagia. TECHNIQUE: Imaging Protocol: Axial CT angiography was performed with multi-slice acquisition and mu lti-planar and/or 3D reconstructions. CONTRAST MATERIAL: Intravenous: Omnipaque 350 Contrast volume:structured data in ml COMPARISON: CT CT CHEST/ABD/PEL W from 09/18/[address] HEAD CERVICAL SPINE WO from 09/18/[address] HEAD CERVICAL SPINE WO from 09/18/2018 FINDINGS: CT Head W/O and W contrast: Ventricles and Extra axial spaces: Normal in size and morphology for the patient's age. Hemorrhage: None. Cerebral parenchyma: Old left occipital infarct which appears more prominent compared the previous ex am. Subacute appearing infarct in the left frontal lobe with some gyral enhancement. No evidence of mass. White matter changes of small vessel disease. [id number] atrophy. Midline shift: None. Brainstem/Cerebellum: Normal. Calvarium: Normal. Visualized Paranasal sinuses/Mastoids: Clear. Soft Tissues: Unremarkable. Enhancement: Normal. CTA Brain W: Internal Carotid Arteries: Calcification. No evidence of significant stenosis or aneurysm. Middle Cerebral Arteries: Right: No aneurysm, occlusion or significant stenosis. Left: No aneurysm, occlusion or significant stenosis. Anterior Cerebral Arteries: Right: No aneurysm, occlusion or significant stenosis. Left: No aneurysm, occlusion or significant stenosis. Posterior cerebral Arteries: Right: No aneurysm, occlusion or significant stenosis. Left: Focal area of severe narrowing distal P1 segment. Distally normal diameter. No aneurysm. Vertebral Arteries: Right: No aneurysm, occlusion or significant stenosis. Left: No aneurysm, occlusion or significant stenosis. Basilar Artery: No aneurysm, occlusion or significant stenosis. CTA Neck W: Common Carotid: Right: Heavy calcification proximally no aneurysm, occlusion or significant stenosis. Left: Heavy calcification proximally. No aneurysm, occlusion or significant stenosis. External Carotid: Right: No aneurysm, occlusion or significant stenosis. Left: No aneurysm, significant stenosis or occlusion. Internal Carotid: Right: Heavy calcification causing critical stenosis. No aneurysm,, dissection occlusion. Left: Heavy calcification proximally causing severe to critical stenosis.No aneurysm, dissection or occlusion. Vertebral Artery: Right: Heavy calcification origin. No aneurysm, occlusion or significant stenosis. Left: Heavy calcification at origin. No aneurysm, occlusion or significant stenosis. Lung Apices: Emphysematous changes. Bones: Degenerative disc changes and facet degenerative changes. Soft Tissues: Normal. IMPRESSION: 1. severe stenosis distal left P1 segment of the left posterior cerebral artery.. 2. Old left occipital infarct. Subacute appearing left frontal infarct.. 3. Severe to critical stenosis of both proximal internal carotid arteries. RADIATION DOSE DELIVERED: 1,890.11mGy.cm Total DLP DATA REPOSITORY: All CT scans at this facility are submitted to the National Radiology Data Registry (NRDR) Dose Index Registry (DIR) with the [employer] (A[employer]). RADIATION OPTIMIZATION: All CT scans at this facility use at least one of these dose optimization te chniques: automated exposure control; mA and/or kV adjustment per patient size (includes targeted exa ms where dose is matched to clinical indication); or iterative reconstruction.
--- NOTE | 2020-08-21 10:30 | DI.RAD_ITS ---
Exam(s) XR PORTABLE CHEST AP EXAM: XR PORTABLE CHEST AP CLINICAL HISTORY: confusion, dysphasia TECHNIQUE: 2D digital imaging was performed. COMPARISON: CR XR CHEST 2V PA LATERAL from 09/20/2018 FINDINGS: LUNGS: Clear. No pleural abnormality seen. HEART: Normal. MEDIASTINUM: Normal. BONES: old left rib fractures. IMPRESSION: No acute pulmonary findings. DATA REPOSITORY: RADIATION DOSE DELIVERED:
[2020-08-21 10:43] LABS: Abs Immature Grans 0.03 10^3/uL (0.0-0.06); Absolute Basophil Count 0.06 10^3/uL (0.0-0.2); Absolute Eosinophil Count 0.19 10^3/uL (0.0-0.7); Absolute Lymphocyte Count 2.64 10^3/uL (1.2-3.4); Absolute Monocyte Count 0.68 10^3/uL (0.1-0.8); Absolute Neutrophil Count 6.18 10^3/uL (1.2-6.7); Basophils % 0.6; Eosinophils % 1.9; HGB 14.1 g/dL (13.5-17.5); Immature Grans % 0.3; MCH 30.5 pg (27.0-33.0); MCHC 33.6 % (32.0-36.0); MCV 90.9 fL (80-95); MPV 9.2 fL (8.0-11.0); Neutrophils % 63.2; Nucleated RBC 0 %; Platelet Count 355 10^3/uL (130-400); RBC 4.62 10^6/uL (4.36-5.78); RDW 14.5 % (11.8-14.1); RDW-SD 48.7 fL; WBC 9.78 10^3/uL (4.4-10.8)
[2020-08-21 10:59] LABS: ALT 17 U/L (16-63); AST 21 U/L (15-37); Albumin 3.9 g/dL (3.4-5.0); Alkaline Phosphatase 97 U/L (46-116); Anion Gap 9.9 mmol/L (3-11); BUN 11 mg/dL (7-18); Bilirubin, Total 0.6 mg/dL (0.2-1.0); CO2 25.1 mmol/L (21.0-32.0); CREATININE 1.5 mg/dL (0.70-1.30); Calcium 9.3 mg/dL (8.5-10.1); Chloride 104 mmol/L (98-107); Estimated GFR 46.27 (mL/min/1.73m2); Glucose 124 mg/dL (74-106); Magnesium 1.9 mg/dL (1.8-2.4); Potassium 3.8 mmol/L (3.5-5.1); Sodium 139 mmol/L (136-145); Total Protein 7.4 g/dL (6.4-8.2)
[2020-08-21 11:08] LABS: Troponin I < 0.05 ng/mL (<0.06)
--- NOTE | 2020-08-21 11:15 | W.ED.GENAD ---
Discharge Plan Discharge Details Chief Complaint: CVA/TIA Primary Care Provider: Mai Ahuja ED Provider: Annie Vazquez Home Meds and New Rx's Prescriptions: New prednisone 20 mg tablet 20 mg PO DAILY Qty: 4 RF: 0 epinephrine 0.3 mg/0.3 mL auto-injector 0.3 mg IM ONCE Qty: 2 RF: 1 No Action atorvastatin 10 mg Tablet 10 mg PO DAILY RF: 0 lisinopril 20 mg Tablet 40 mg PO DAILY RF: 0 metoprolol succinate 25 mg Tablet Extended Release 24 Hr 50 mg PO DAILY RF: 0 albuterol sulfate 90 mcg/actuation Hfa Aerosol Inhaler 2 puff INHALATION Q6H PRNRF: 0 aspirin 325 mg Tablet 325 mg PO DAILY RF: 0 amlodipine 5 mg Tablet 10 mg PO DAILY Qty: 60 RF: 0 budesonide-formoterol [Symbicort] 160-4.5 mcg/actuation Hfa Aerosol Inhaler 2 puff inhalation BID Qty: 6 RF: 1 acetaminophen 500 mg tablet 500 mg PO Q8H PRN (Reason: pain) Qty: 60 RF: 3 ibuprofen [IBU] 600 mg Tablet 600 mg PO Q8H PRN PRN (Reason: pain) Qty: 30 RF: 3 potassium chloride 10 mEq Tablet Extended Release 10 meq PO DAILY RF: 0 Discharge Data Discharge Date/Time-TO BE ENTERED AT DEPARTURE: 08/21/20 18:00 Medical Decision Making <SHEREE Bloom - Last Filed: 08/22/20 16:22> Patient is alert and oriented, he has an obvious right-sided deficit including his right upper extremity with pronator drift, decreased hand grasp, and some right-sided facial droop in addition to slurred speech Patient has a CT with findings consistent with a subacute right-sided infarct of the superior and lateral parietal occipital lobe but a chronic infarct noted additionally He also has a left frontal infarct I care patient additionally has a P1 segment of the left posterior cerebral artery that may be severe stenosis or focal occlusion or short segment of thrombus, this was discussed with the virtual radiologist, Dr. Xochitl Hsieh This was also discussed with on-call neurologist, Dr. Castro Leavitt who recommended supportive measures only I did consult with our hospitalist and unfortunately we do not have neurology or echocardiogram available to us and patient will need admission to hospital where these interventions and observation can be applied [facility] at [facility], patient received a dose of aspirin and his blood pressure medications, and he has remained stable throughout the encounter and is maintaining secretions, swallow study and p.o. challenge were performed prior to administration of aspirin EKG was reviewed with my attending physician without obvious evidence of dysrhythmia blood pressure 192/72 at reevaluation CODE STATUS is DNR/DNI after discussion with son and patient, son patient DPOA Changes discussed with the admitting hospitalist, Dr. Brenner admitting hospitalist who is accepted this patient in transfer, they are requesting that he patient have a negative Covid test prior to being transferred to this hospital, this is pending at this time Differential Diagnosis Differential Diagnosis: CVA, TIA, urinary tract infection, electrolyte abnormality Medical Records Medical records reviewed: Yes I reviewed the patient's medical records. Lab Data Lab results reviewed: Yes I reviewed the patient's lab results. ECG Data Attestation: I personally reviewed and interpreted this ECG (s) as follows: <SHEREE Flores - Last Filed: 08/21/20 17:55> Care transition myself from Josephine Chisholm PA-C. Please see her initial note regarding history, presentation and exam. In brief, patient is a pleasant 69-year-old male who presented today after 1 week of intermittent neurological deficits. Deficits have been more persistent today with right-sided upper extremity drift, hand weakness and facial droop. Patient is also noted to have slurred speech. Some of the symptoms began last night was the first noted this morning. Patient has received aspirin. [facility] with [facility]-19 testing pending. COVID-19 testing is negative. Patient will be transferred via EMS to the [facility] for further care. I did speak with patient and family regarding transfer and they are in agreement with this plan. HPI <SHEREE Bloom - Last Filed: 08/22/20 16:22> General Mode of arrival: ambulatory. Date/Time Provider Initiated Documentation: 08/21/20 10:25. Limitations to Documentation: no limitations. Information obtained by: patient and family. HPI Narrative: This 69-year-old male presents with past medical history of COPD, peripheral vascular disease, hypertension, family states that over the past 2 days he has had some increased confusion and difficulties with speech. This morning when he awoke they thought he had a possible right-sided facial droop. Last seen well at bedtime around 9. Patient denies any current complaints. They also state patient has had some difficulty with walking and feels speech is worsened today. Patient and family deny known falls or injuries. [facility] No changes in medications. Denies additional complaints at this time. Patient unfortunately is a poor historian so large amount of history is obtained from patient and partner. Related Data Home Medications Medication Instructions Recorded Confirmed albuterol sulfate 2 puff INHALATION Q6H PRN 03/05/18 08/21/20 atorvastatin 10 mg PO DAILY 03/05/18 08/21/20 lisinopril 40 mg PO DAILY 03/05/18 08/21/20 metoprolol succinate 50 mg PO DAILY 03/05/18 08/21/20 aspirin 325 mg PO DAILY 09/18/18 08/21/20 amlodipine 10 mg PO DAILY #60 tab 09/20/18 08/21/20 budesonide-formoterol [Symbicort] 2 puff INHALATION BID #6 g 09/20/18 08/21/20 acetaminophen 500 mg PO Q8H PRN #60 tab 10/09/18 08/21/20 ibuprofen [IBU] 600 mg PO Q8H PRN PRN #30 tab 10/09/18 08/21/20 epinephrine 0.3 mg IM ONCE #2 ea 08/21/20 potassium chloride 10 meq PO DAILY 08/21/20 08/21/20 prednisone 20 mg PO DAILY #4 tab 08/21/20 Previous Rx's Medication Instructions Recorded amlodipine 10 mg PO DAILY #60 tab 09/20/18 budesonide-formoterol [Symbicort] 2 puff INHALATION BID #6 g 09/20/18 acetaminophen 500 mg PO Q8H PRN #60 tab 10/09/18 ibuprofen [IBU] 600 mg PO Q8H PRN PRN #30 tab 10/09/18 epinephrine 0.3 mg IM ONCE #2 ea 08/21/20 prednisone 20 mg PO DAILY #4 tab 08/21/20 Allergies Allergy/AdvReac Type Severity Reaction Status Date / Time clopidogrel [From Plavix] Allergy Unknown Unverified 08/21/20 10:29 simvastatin Allergy Unknown Unverified 08/21/20 10:29 General Stated Complaint: CVA/TIA JUSTINE: 2 Review of Systems <SHEREE Bloom - Last Filed: 08/22/20 16:22> All systems reviewed & are unremarkable except as noted in HPI and below PFSH <SHEREE Bloom - Last Filed: 08/22/20 16:22> Medical History Abnormal gait Alcohol abuse Cataract COPD (chronic obstructive pulmonary disease) Coronary artery disease Depression Diverticulitis large intestine Erectile dysfunction Hepatitis C treated with Ribavirin and interferon. PCR qual neg 11/1999 Hypertension Impaired cognition Left rib fracture Memory loss Peripheral vascular disease of extremity with claudication Pneumothorax, left Tobacco dependence Vitamin D deficiency Surgical History (Updated 10/26/18 @ 11:00 by SHEREE Dodge) H/O right knee surgery Status post closed fracture of femur s/p repair Family History (Updated 10/08/18 @ 08:35 by Sophia Lucas RN) Other Cancer Diabetes Heart disease Social History Smoking/Tobacco Use Status: Current every day Tobacco Type: cigarettes Smoking risk assessment performed?: Yes Alcohol Intake: former Drug use: Daily Substance use type: marijuana Details: Daughter in law states pt hasnt had any alcohol in 8 months Marijuana yesterday Household members: family Housing: house Number of Children: 1 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retired [employer] Do you feel safe at home: Yes Do you feel safe in your relationship?: Yes Additional Social history: Patient lives with his son, daughter in-law and grandson Patient receives his care at the [facility] Exam <SHEREE Bloom - Last Filed: 08/22/20 16:22> Const General: cooperative and no acute distress HENMT Other: visible sign of trauma Eyes Pupils: PERRL Chest Chest: normal inspection of the chest Resp Effort & Inspection: normal respiratory effort Auscultation: clear to auscultation bilaterally Cardio Rate: regular rate Rhythm: regular rhythm Skin General skin exam: no rashes or lesions noted Neuro General: patient alert Speech: abnormal speech Gait: ataxic Motor: pronator drift Other: Positive [id number], pronator drift, weakness, right lower extremity with strength and sensation intact, mild right-sided facial droop Heel rubio intact bilateral lower extremities Course <SHEREE Bloom - Last Filed: 08/22/20 16:22> Vital Signs Vital signs: Vital Signs Temperature 36.5 C 08/21/20 10:22 Pulse 69 08/21/20 10:22 Respiratory Rate 21 08/21/20 10:22 Blood Pressure 192/72 H 08/21/20 10:22 Pulse Oximetry 96 08/21/20 10:22 Temperature 36.5 C 08/21/20 10:22 Temperature Source Skin 08/21/20 10:22 Pulse 62 08/21/20 10:46 Pulse 68 08/21/20 10:50 Respiratory Rate 14 08/21/20 10:50 Respiratory Effort Non-Labored 08/21/20 10:33 Respiratory Depth Normal 08/21/20 10:33 Respiratory Pattern Normal 08/21/20 10:33 Blood Pressure 174/65 H 08/21/20 10:46 Blood Pressure Mean 93 08/21/20 10:46 Blood Pressure Position Supine 08/21/20 10:22 Pulse Oximetry 96 08/21/20 10:50 Pain Level 0 08/21/20 10:22 Lab/Test Results Lab/Test Results: Laboratory Tests Range/Units 08/21/20 08/21/20 10:25 10:25 WBC (4.4-10.8) 10^3/uL 9.78 RBC (4.36-5.78) 10^6/uL 4.62 Hgb (13.5-17.5) g/dL 14.1 Hct (40.0-50.0) % 42.0 MCV (80-95) fL 90.9 MCH (27.0-33.0) pg 30.5 MCHC (32.0-36.0) % 33.6 RDW (11.8-14.1) % 14.5 H Plt Count (130-400) 10^3/uL 355 MPV (8.0-11.0) fL 9.2 Immature Gran % 0.3 Neutrophils % 63.2 Lymphocytes % 27.0 Monocytes % 7.0 Eosinophils % 1.9 Basophils % 0.6 Nucleated RBC % % 0 Absolute Neutrophils (1.2-6.7) 10^3/uL 6.18 Absolute Lymphocytes (1.2-3.4) 10^3/uL 2.64 Absolute Monocytes (0.1-0.8) 10^3/uL 0.68 Absolute Eosinophils (0.0-0.7) 10^3/uL 0.19 Absolute Basophils (0.0-0.2) 10^3/uL 0.06 Sodium (136-145) mmol/L 139 Potassium (3.5-5.1) mmol/L 3.8 Chloride (98-107) mmol/L 104 Carbon Dioxide (21.0-32.0) mmol/L 25.1 Anion Gap (3-11) mmol/L 9.9 BUN (7-18) mg/dL 11 Creatinine (0.70-1.30) mg/dL 1.5 H Estimated GFR/1.73 m2 (mL/min/1.73m2) 46.27 Glucose (74-106) mg/dL 124 H Calcium (8.5-10.1) mg/dL 9.3 Magnesium (1.8-2.4) mg/dL 1.9 Total Bilirubin (0.2-1.0) mg/dL 0.6 AST (15-37) U/L 21 ALT (16-63) U/L 17 Alkaline Phosphatase (46-116) U/L 97 Troponin I (<0.06) ng/mL < 0.05 Total Protein (6.4-8.2) g/dL 7.4 Albumin (3.4-5.0) g/dL 3.9 Critical Care Time <SHEREE Bloom - Last Filed: 08/22/20 16:22> Critical Care Time Critical Care Time: Yes Total Critical Care Time: 45 Attestation: CTA ordered for diagnostic testing with noted CVA, radiologist consultation and discussion, [facility] neurology consultation, aspirin administration, telemetry monitoring, blood pressure monitoring and oral supplementation, transfer Sign Out <SHEREE Bloom - Last Filed: 08/22/20 16:22> Sign Out Data: Sign Out Comment: cva,pending transfer to [facility] Last updated by Josephine Chisholm PA at 08/21/20 17:02
[2020-08-21] MEDS: Omnipaque 350 MG/ML 100 ML BTL 85 ML IJ (11:53)
[2020-08-21] MEDS: Normal Saline - Diluent 50 ML VIAL IV (11:54)
[2020-08-21 12:00] LABS: Bilirubin Negative (Negative); Blood Negative (Negative); Clarity Clear (Clear); Glucose Negative (Negative); Ketones Negative (Negative); Leukocyte Esterase Negative (Negative); Nitrite Negative (Negative); Specific Gravity 1.015 (1.005-1.025); Urobilinogen 0.2 EU/dL (Up TO 0.2)
--- NOTE | 2020-08-21 12:31 | DI.VRAD_ITS ---
PROCEDURE INFORMATION: Exam: XR Chest Exam date and time: 08/21/2020 10:36 AM Age: 69 years old Clinical indication: Other: Confusion, dysphagia TECHNIQUE: Imaging protocol: XR of the chest. Views: 1 view. COMPARISON: [facility] XR CHEST 2V PA LATERAL 09/20/2018 7:27 AM FINDINGS: Limitations: Left costophrenic sulcus partially excluded from the image. Lungs: Unremarkable. No consolidation. Pleural spaces: Unremarkable. No pleural effusion. No pneumothorax. Heart/Mediastinum: Unremarkable. No cardiomegaly. Bones/joints: Unremarkable. IMPRESSION: No acute findings. Dictated and Authenticated by: Mara Stanton MD. Ordering:CHARLENE Burton MD
--- NOTE | 2020-08-21 13:44 | DI.VRAD_ITS ---
Addendum created by Shayy Sandoval MD on 08/21/2020 1:52:08 PM EDT: Critical results: THIS REPORT CONTAINS FINDINGS THAT MAY BE CRITICAL / URGENT (stroke protocol) TO PATIENT CARE. The findings were verbally communicated via telephone conference with Josephine Chisholm at 1:51 PM EDT on 08/21/2020. The findings were acknowledged and understood. Initial report created on 08/21/2020 1:43:17 PM EDT: PROCEDURE INFORMATION: Exam: CT Angiography Head With Contrast, Arteriography Exam date and time: 08/21/2020 10:36 AM Age: 69 years old Clinical indication: Other: Right facial droop, dysphagia TECHNIQUE: Imaging protocol: Computed tomography angiography of the head with contrast. Exam focused on the arteries. 3D rendering (Not supervised by radiologist): MIP and/or 3D reconstructed images were created by the technologist. Contrast material: OMNIPAQUE 350; Contrast volume: 85 ml; Contrast route: INTRAVENOUS (IV); COMPARISON: CT HEAD CERVICAL SPINE WO 09/18/2018 9:34 PM FINDINGS: ANTERIOR CIRCULATION: Right internal carotid artery: There is calcification of the intracranial right internal carotid artery. No hemodynamically significant degrees of stenosis, thrombosis, or occlusion. No evidence of aneurysm. Right middle cerebral artery: Unremarkable. No occlusion or significant stenosis. No aneurysm. Right anterior cerebral artery: Unremarkable. No occlusion or significant stenosis. No aneurysm. Left internal carotid artery: There is calcification of the intracranial left internal carotid artery. No hemodynamically significant degrees of stenosis, thrombosis, or occlusion. No evidence of aneurysm. Left middle cerebral artery: Unremarkable. No occlusion or significant stenosis. No aneurysm. Left anterior cerebral artery: Unremarkable. No occlusion or significant stenosis. No aneurysm. POSTERIOR CIRCULATION: Right vertebral artery: Unremarkable. No occlusion or significant stenosis. No aneurysm. Left vertebral artery: Unremarkable. No occlusion or significant stenosis. No aneurysm. Basilar artery: No occlusion or significant stenosis. No aneurysm. Right posterior cerebral artery: No hemodynamically significant stenosis or occlusion. Left posterior cerebral artery: There is approximately 2 mm short segment of left posterior cerebral artery at distal aspect of P1 segment which does not show contrast enhancement. This may be a severe stenosis, focal occlusion, or area of thrombus. The posterior cerebral artery is identified posteriorly beyond this level. Brain: Left frontal infarct has appearance suggesting subacute age. This does show gyral contrast enhancement confirming subacute age with blood brain barrier disruption. There is chronic right occipital infarct medially. More laterally and superior to this chronic infarct, there is a less hypodense infarct which suggests probable subacute age this does appear to show a punctate area gyral enhancement suggesting again this is subacute age infarct. No evidence of acute intracranial hemorrhage. Lucency in white matter compatible with microvascular change. There is diffuse cerebral atrophy present, consistent with this patient's age. Cerebral ventricles: No ventriculomegaly. Bones/joints: Unremarkable. No acute fracture. Soft tissues: Unremarkable. IMPRESSION: 1. Short segment of non-opacified distal P1 segment of left posterior cerebral artery may be severe stenosis, focal occlusion, or short segment of thrombus. 2. Subacute left frontal infarct. Chronic right occipital infarct. Suggestion of subacute age appearing infarct superior and lateral to the chronic infarct in the parietooccipital lobe. Consider evaluation with MRI. PROCEDURE INFORMATION: Exam: CT Angiography Neck With Contrast Exam date and time: 08/21/2020 10:36 AM Age: 69 years old Clinical indication: Other: Right facial droop, dysphagia TECHNIQUE: Imaging protocol: Computed tomography angiography of the neck with contrast. 3D rendering (Not supervised by radiologist): MIP and/or 3D reconstructed images were created by the technologist. Contrast material: OMNIPAQUE 350; Contrast volume: 85 ml; Contrast route: INTRAVENOUS (IV); COMPARISON: CT HEAD CERVICAL SPINE WO 09/18/2018 9:34 PM FINDINGS: Right common carotid artery: Atherosclerotic calcification. No significant stenosis. No dissection or occlusion. Right internal carotid artery: There is prominent atherosclerotic change at right carotid bifurcation and bulb, with extensive calcification limiting luminal evaluation. There is likely hemodynamically significant proximal stenosis. No visible thrombosis, occlusion, or evidence of dissection. Right external carotid artery: Mild calcification. No occlusion or stenosis of the origin. Left common carotid artery: Atherosclerotic calcification. No significant stenosis. No dissection or occlusion. Left internal carotid artery: There is prominent atherosclerotic change at left carotid bifurcation and bulb, with extensive calcification limiting luminal evaluation. There is likely hemodynamically significant proximal stenosis. No visible thrombosis, occlusion, or evidence of dissection. Left external carotid artery: Mild calcification. No occlusion or stenosis of the origin. Right vertebral artery: There appears to be narrowing of the proximal right vertebral artery with evaluation limited by calcification. Remainder of vertebral artery shows no stenosis, thrombosis, occlusion, or evidence of dissection. Left vertebral artery: There appears to be narrowing of the proximal left vertebral artery with evaluation limited by calcification. Remainder of vertebral artery shows no stenosis, thrombosis, occlusion, or evidence of dissection. Aorta: There is atherosclerotic change in aortic arch. No aneurysm or dissection. Three vessel aortic arch with atherosclerotic change but no hemodynamically significant stenosis. Other arteries: There is mild atherosclerotic change of subclavian arteries without focal hemodynamically significant stenosis. Soft tissues: . No significant soft tissue swelling. Bones/joints: There are degenerative changes spine with multilevel neural foraminal narrowing. No high-grade spinal stenosis. Lungs: There are emphysematous changes in pulmonary apices with subpleural blebs bilaterally. IMPRESSION: 1. Prominent atherosclerotic change. Extensive calcification at bilateral carotid bulbs and bifurcations limits evaluation but hemodynamically significant and severe stenosis is suspected. This could be possibly better evaluated with MRA of neck which often is not limited by calcification. 2. Bilateral vertebral origin stenosis with evaluation limited by calcification. Remainder vertebral arteries normal caliber. 3. Other findings as described. REFERENCES: NASCET CRITERIA. The degree of internal carotid artery stenosis is based on NASCET criteria. Normal is no stenosis. Mild is less than 50% stenosis. Moderate is 50-69% stenosis. Severe is 70% to 99% stenosis. Total occlusion is no detectable patent lumen. Dictated and Authenticated by: Shayy Sandoval MD. Ordering:CHARLENE Burton MD
[2020-08-21] MEDS: Aspirin 325 MG TAB PO (14:21)
[2020-08-21] MEDS: Metoprolol 50 MG TAB PO (14:57)
[2020-08-21] MEDS: amLODIPine 10 MG TAB PO (14:59)
--- NOTE | 2020-08-21 15:49 | NUR.NOTE ---
Nursing Note: Called the [facility] [id number] notification hotline for possible admission to [facility]. Per the hotline patient can stay at [facility] but they are not to sign the letter that he doesn't want to be transferred. Notification ID#: [id number]. Shayy Goodrich
[2020-08-21 16:52] LABS: Source Nasal/Nares
--- NOTE | 2020-08-21 16:55 | NUR.NOTE ---
Nursing Note: Spoke with [facility] Jairo and he stated we could arrange our transport. He also stated that they need the result of the COVID prior to transferring. Shayy Goodrich
[2020-08-21 17:42] LABS: COVID-19 PCR Negative (Negative)
--- NOTE | 2020-08-21 18:16 | NUR.NOTE ---
Report given to Mayte STAFFORD at [facility]. Ready for patient as soon as he can be sent--will call to inform her when he leaves our facility.Nursing Note:
== END 2020-08-21 18:00 ==
PROVIDERS: Physician Assistant; Emergency Provider Physician Assistant; PCP Nurse Practitioner Family
DX: I63.89 Other cerebral infarction (principal); I66.22 Occlusion and stenosis of left posterior cerebral artery; Z20.822 Contact with and (suspected) exposure to COVID-19; Z03.818 Encounter for observation for suspected exposure to other biological agents ruled out
CPT/HCPCS: 36415; 36416; 70496; 70498; 80053; 82962; 87635; 93005; 99291; 71045; 81003; 83735; 84484; 85025; 93010; J3490

== ENCOUNTER 2020-12-22 11:48 | Outpatient (CLI) | payer MEDICARE, SELFPAY ==
[2020-12-22 16:41] LABS: Anion Gap 8.7 mmol/L (3-11); BUN 29 mg/dL (7-18); CO2 29.3 mmol/L (21.0-32.0); CREATININE 2.1 mg/dL (0.70-1.30); Calcium 9.2 mg/dL (8.5-10.1); Chloride 100 mmol/L (98-107); Estimated GFR 31.29 (mL/min/1.73m2); Glucose 131 mg/dL (74-106); PHOSPHORUS 4.1 mg/dL (2.6-4.7); Potassium 4.9 mmol/L (3.5-5.1); Sodium 138 mmol/L (136-145)
== END 2020-12-22 11:49 | disposition home or self-care (01) ==
LOC: LBO 11:51
PROVIDERS: PCP Internal Medicine Geriatric Medicine; Visit Provider Internal Medicine Geriatric Medicine
DX: N18.9 Chronic kidney disease, unspecified (principal)
CPT/HCPCS: 36415; 80051; 82947; 84520; 82310; 82565; 84100

== ENCOUNTER 2021-01-01 03:41 | Outpatient (CLI) | payer MEDICARE, SELFPAY ==
[2021-01-01 13:03] LABS: Calcium 9.3 mg/dL (8.5-10.1)
[2021-01-01 13:04] LABS: Anion Gap 8.8 mmol/L (3-11); BUN 26 mg/dL (7-18); CO2 29.2 mmol/L (21.0-32.0); CREATININE 1.6 mg/dL (0.70-1.30); Chloride 104 mmol/L (98-107); Estimated GFR 42.82 (mL/min/1.73m2); Glucose 83 mg/dL (74-106); Potassium 3.8 mmol/L (3.5-5.1); Sodium 142 mmol/L (136-145)
[2021-01-01 13:45] LABS: PHOSPHORUS 3.9 mg/dL (2.6-4.7)
== END 2021-01-01 03:42 | disposition home or self-care (01) ==
LOC: LBO 03:42
PROVIDERS: PCP Internal Medicine Geriatric Medicine; Visit Provider Internal Medicine Geriatric Medicine
DX: I10 Essential (primary) hypertension (principal); I25.10 Atherosclerotic heart disease of native coronary artery without angina pectoris
CPT/HCPCS: 36415; 80051; 82947; 84520; 82310; 82565; 84100

== ENCOUNTER 2021-01-29 19:50 | Emergency (ER) | payer MEDICARE, SELFPAY ==
[2021-01-29] VITALS (27 sets, daily range): BP systolic 107–138; BP diastolic 39–71; PULSE 46–83; RESP 12–18; TEMP 36.3; O2SAT 94–97
--- NOTE | 2021-01-29 19:15 | RT.EKG_ITS ---
APPROVED REPORT Exam: Resting ECG Reason for Exam: weakness syncope Patient Location: E HR:50 bpm ECG Measurements Heart Rate 50 AXIS MS 209 P 59 QRSd 95 QRS 20 QT 459 T 53 QTc 417 Conclusion Sinus bradycardia...rate< 60 Consider anteroseptal infarct...Q >30mS, dimin R, V1-V2 Physician: no stemi, unchanged
--- NOTE | 2021-01-29 19:33 | DI.RAD_ITS ---
Exam(s) XR CHEST 1V IN DI DEPT EXAM: XR CHEST 1V IN DI DEPT CLINICAL HISTORY: cough, altered TECHNIQUE: 2D digital imaging was performed of the chest. One image was obtained. An AP view was ob tained. COMPARISON: CR,XR XR PORTABLE CHEST AP from 08/21/2020 FINDINGS: Poor inspiratory effort. MEDIASTINUM: Normal. HEART: Normal. PULMONARY VASCULATURE: Normal. LUNGS: Clear. PLEURAL SPACE: No pleural effusion or pneumothorax. BONE:Within normal limits for the patient's age. OTHER FINDINGS:Persistent elevation of the right hemidiaphragm. IMPRESSION: No acute pulmonary findings. DATA REPOSITORY: RADIATION DOSE DELIVERED:
[2021-01-29 19:51] LABS: Abs Immature Grans 0.02 10^3/uL (0.0-0.06); Absolute Basophil Count 0.08 10^3/uL (0.0-0.2); Absolute Eosinophil Count 0.61 10^3/uL (0.0-0.7); Absolute Lymphocyte Count 3.41 10^3/uL (1.2-3.4); Absolute Monocyte Count 0.67 10^3/uL (0.1-0.8); Basophils % 0.9; Eosinophils % 6.6; HCT 38.1 % (40.0-50.0); HGB 12.5 g/dL (13.5-17.5); Immature Grans % 0.2; Lymphocytes % 37.1; MCH 30.3 pg (27.0-33.0); MCHC 32.8 % (32.0-36.0); MCV 92.3 fL (80-95); MPV 9.4 fL (8.0-11.0); Monocytes % 7.3; Neutrophils % 47.9; Nucleated RBC 0 %; Platelet Count 269 10^3/uL (130-400); RBC 4.13 10^6/uL (4.36-5.78); RDW 14.3 % (11.8-14.1); RDW-SD 48.1 fL; WBC 9.19 10^3/uL (4.4-10.8)
[2021-01-29 19:52] LABS: BE (Venous) 0 mmol/L (-2-3); HCO3 (Venous) 26 mmol/L (23-28); O2 Sat (Venous) 74 %; TCO2 (Venous) 24 mmol/L (24-29); pCO2 (Venous) 52 mmHg (41-51); pO2 (Venous) 41 mmHg
[2021-01-29 19:56] LABS: Source Nasal/Nares
[2021-01-29] MEDS: Normal Saline 500 ML IV (20:00)
[2021-01-29 20:07] LABS: Ammonia 18 umol/L (11-32)
--- NOTE | 2021-01-29 20:10 | ED.GENADUL_ITS ---
Discharge Plan Disposition Patient Disposition: HOME Condition: Stable Discharge Details Clinical Impression: Syncope, Acute kidney injury Primary Care Provider: Cierra Albright ED Provider: Zia Baldwin Home Meds and New Rx's Prescriptions: Continued atorvastatin 20 mg tablet 20 mg PO QHS Qty: 90 RF: 0 lisinopril 10 mg tablet 10 mg PO DAILY Qty: 90 RF: 0 polyethylene glycol 3350 17 gram/dose powder 17 g PO DAILY PRN (Reason: constipation) Qty: 510 RF: 0 cholecalciferol (vitamin D3) 50 mcg (2,000 unit) capsule 50 mcg PO DAILY Qty: 90 RF: 0 mecobalamin (vitamin B12) 1,000 mcg tablet,disintegrating 1,000 mcg sublingual DAILY Qty: 90 RF: 0 guaifenesin 600 mg tablet extended release 12hr 600 mg PO .every other day Qty: 90 RF: 0 albuterol sulfate 90 mcg/actuation Hfa Aerosol Inhaler 2 puff INHALATION Q6H PRNRF: 0 aspirin 325 mg Tablet 325 mg PO DAILY RF: 0 amlodipine 5 mg Tablet 10 mg PO DAILY Qty: 60 RF: 0 budesonide-formoterol [Symbicort] 160-4.5 mcg/actuation Hfa Aerosol Inhaler 2 puff inhalation BID Qty: 6 RF: 1 acetaminophen 500 mg tablet 500 mg PO Q8H PRN (Reason: pain) Qty: 60 RF: 3 famotidine 20 mg Tablet 20 mg PO BID RF: 0 doxazosin 2 mg tablet 2 mg RF: 0 hydrochlorothiazide 12.5 mg Tablet 12.5 mg PO DAILY RF: 0 metoprolol succinate 100 mg tablet extended release 24 hr 150 mg PO DAILY RF: 0 Discharge Instructions Instructions: Syncope (ED) Additional Instructions: At this time your work-up has returned very reassuring. Your kidney function is slightly worse than normal. Please follow-up closely with your marketing finance specialist tomorrow at your scheduled appointment. Drink plenty of fluids. If you notice any worsening of your symptoms, or any new symptoms such as vomiting, diarrhea, fever, chills, shortness of breath, chest pain, numbness, weakness, or fainting , please return immediately to the emergency department for reevaluation. Please follow up with your primary care provider as soon as possible for reassessment and reevaluation. As always, it was a pleasure participating in your medical care today. Referrals: Cierra Albright [Primary Care Provider] - Medical Decision Making This is a 70-year-old male who is DNR/DNI currently a palliative care patient with a history of TBI, vascular dementia, alcoholic dementia, COPD, previous stroke in with chronic mild right-sided deficits, who presents today for evaluation of an episode of altered mental status. Family states that the patient was at dinner eating well when he slumped over and was quite a bit altered for 2 to 5 minutes. EMS called. Upon EMS arrival the patient was back at his baseline. He demonstrated chronic mild weakness in his right, but otherwise unchanged. Family denies any seizure-like activity. They deny any choking. Patient has no complaints. He denies any chest pain, shortness of breath, nausea, headache, new numbness tingling or weakness. No other complaints at this time. No known fall or trauma. No other modifying factors. Physical exam demonstrates mild dysdiadochokinesia for the right upper extremity,Slightly garbled speech however daughter who is at bedside and also EMS states that this is his baseline. Otherwise no evidence of significant focal neurologic deficit. No evidence at this time of acute. Uncertain as to what etiology cause of patient symptoms, differential includes dysrhythmia, CVA, or other abnormality. We will evaluate for concerning findings, monitor closely and reassess 11:09 PM Patient's laboratory work-up is returned stable. Patient's GFR and creatinine are slightly elevated compared to normal. The remainder of his work-up is otherwise reassuring. CT scan of the head is negative for acute process per virtual radiology. Troponin EKG stable. TSH is high, however free T4 is normal. Covid test is negative, alcohol and salicylates are negative. Patient states that he feels great and would like to go home. Daughter who is at bedside continues to reiterate that he is at his baseline. I did contact his dmygqljj-[id number]-jzv and son and they also feel that he has had at his baseline after FaceTime. Uncertain as to what the exact cause of his initial symptoms were, however syncope certainly on the differential. With having a notably stable cardiac evaluation here during his entire stay with no dysrhythmia or other abnormality, and showing no other evidence of acute life-threatening etiology at this time, and taking into account the patient extremely clear desire to go home and not stay overnight I do feel it reasonable for him to go home with close follow-up. He does have a scheduled appointment with his marketing finance specialist tomorrow. [id number] will be bringing him there. Discussed red flags which to return. I have extensively reviewed the treatment plan and discharge instructions with the patient and their family. I have addressed all patient concerns at this time. The patient and family was made aware of what symptoms to monitor for that would warrant a return to the emergency department. Discussed the plan with the patient and family, they demonstrate verbal understanding and agreement with our assessment and plan at this time. The documentation in this chart was dictated using [employer] dictation software. Please excuse any dictation errors. HPI General Date/Time Provider Initiated Documentation: 01/29/21 20:10 . HPI Narrative: This is a 70-year-old male who is DNR/DNI currently a palliative care patient with a history of TBI, vascular dementia, alcoholic dementia, COPD, previous stroke in with chronic mild right-sided deficits, who presents today for evaluation of an episode of altered mental status. Family states that the patient was at dinner eating well when he slumped over and was quite a bit altered for 2 to 5 minutes. EMS called. Upon EMS arrival the patient was back at his baseline. He demonstrated chronic mild weakness in his right, but otherwise unchanged. Family denies any seizure-like activity. They deny any choking. Patient has no complaints. He denies any chest pain, shortness of breath, nausea, headache, new numbness tingling or weakness. No other complaints at this time. No known fall or trauma. No other modifying factors. Related Data Home Medications Medication Instructions Recorded Confirmed albuterol sulfate 2 puff INHALATION Q6H PRN 03/05/18 11/05/20 aspirin 325 mg PO DAILY 09/18/18 01/29/21 amlodipine 10 mg PO DAILY #60 tab 09/20/18 01/29/21 budesonide-formoterol [Symbicort] 2 puff INHALATION BID #6 g 09/20/18 11/05/20 acetaminophen 500 mg PO Q8H PRN #60 tab 10/09/18 11/05/20 atorvastatin 20 mg tablet 20 mg PO QHS #90 tab 11/05/20 01/29/21 cholecalciferol (vitamin D3) 50 50 mcg PO DAILY #90 cap 11/05/20 01/29/21 mcg (2,000 unit) capsule guaifenesin 600 mg tablet, 600 mg PO .every other day #90 tab 11/05/20 11/05/20 extended release 12 hr lisinopril 10 mg tablet 10 mg PO DAILY #90 tab 11/05/20 01/29/21 mecobalamin (vitamin B12) 1,000 1,000 mcg SUBLINGUAL DAILY #90 tab 11/05/20 01/29/21 mcg disintegrating tablet,sublingual polyethylene glycol 3350 17 17 g PO DAILY PRN #510 g 11/05/20 11/05/20 gram/dose oral powder doxazosin 2 mg 01/29/21 famotidine 20 mg PO BID 01/29/21 01/29/21 hydrochlorothiazide 12.5 mg PO DAILY 01/29/21 01/29/21 metoprolol succinate 150 mg PO DAILY 01/29/21 01/29/21 Previous Rx's Medication Instructions Recorded amlodipine 10 mg PO DAILY #60 tab 09/20/18 budesonide-formoterol [Symbicort] 2 puff INHALATION BID #6 g 09/20/18 acetaminophen 500 mg PO Q8H PRN #60 tab 10/09/18 atorvastatin 20 mg tablet 20 mg PO QHS #90 tab 11/05/20 cholecalciferol (vitamin D3) 50 50 mcg PO DAILY #90 cap 11/05/20 mcg (2,000 unit) capsule guaifenesin 600 mg tablet, 600 mg PO .every other day #90 tab 11/05/20 extended release 12 hr lisinopril 10 mg tablet 10 mg PO DAILY #90 tab 11/05/20 mecobalamin (vitamin B12) 1,000 1,000 mcg SUBLINGUAL DAILY #90 tab 11/05/20 mcg disintegrating tablet,sublingual polyethylene glycol 3350 17 17 g PO DAILY PRN #510 g 11/05/20 gram/dose oral powder Allergies Allergy/AdvReac Type Severity Reaction Status Date / Time clopidogrel [From Plavix] Allergy Unknown Unverified 01/29/21 19:37 simvastatin Allergy Unknown Unverified 01/29/21 19:37 General Stated Complaint: AMS/LOC JUSTINE: 2 Review of Systems All systems reviewed & are unremarkable except as noted in HPI and below PFSH All Active Problems (Updated 01/29/21 @ 23:11 by Zia Baldwin DO) Syncope (Chronic) Acute kidney injury (Acute) Goals of care, counseling/discussion (Acute) DNI (do not intubate) (Acute) DNR (do not resuscitate) (Acute) POLST (Physician Orders for Life-Sustaining Treatment) (Acute) Retinal hemorrhage, right eye (Acute) 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) Chronic post-traumatic stress disorder (PTSD) after combat (Chronic) History of delusional disorder (Acute) Postoperative stroke (Chronic) History of left-sided carotid endarterectomy (Acute) Left-sided carotid artery disease (Acute) Palliative care patient (Acute) 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 PCR qual neg 11/1999 Impaired cognition Memory loss Tobacco dependence quit 2020 Vitamin D deficiency Surgical History H/O right knee surgery Status post closed fracture of femur s/p repair Family History Son Diabetes Pancreatitis, acute Grandson No problems noted. Mother , age 95 from DM2 and heart disease Heart disease Diabetes Father , in his early 50s from etohism Alcohol use disorder Sister Colon cancer Granddaughter Substance use disorder Other Cancer Social History Smoking/Tobacco Use Status: Former Tobacco Use Tobacco: How many years used: 52 Second Hand Exposure: No Counseling given: provider counseling Smoking risk assessment performed?: Yes Alcohol Intake: former Counseling given: Yes Drug use: Daily Substance use type: marijuana Counseling given: No Details: stopped drinking 2017, except for rare exceptions quit smoking August 2020 Caregiver/Support person: Yes Household members: family Housing: house Number of Children: 1 number of grandchildren: 3 Communication Needs: Hard of Hearing and Corrective Lenses Education Level: high school Do you need help understanding health information?: Always 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, [employer], 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 Pets and animals: Yes Current gender identity: male What is your relationship status?: How often do you talk on the phone with friends or family?: never How often do you get together with friends or relatives?: twice per week Panel score (0-1 are the most socially isolated patients): 0 What type of physical activity do you participate in: walking and sedentary lifestyle Duration: 15-30 minutes/day Special roslyn needs: No Agree to transfusion: No Seatbelt use: sometimes Helmet use: No Working smoke detector in home: Yes Fire extinguisher in home: Yes Do you feel safe at home: Yes Do you feel safe in your relationship?: Yes Additional Social history: Patient lives with his son, daughter in-law and grandson Patient receives his care at the [facility], Dr Albright is his current MD, likes her very much. Has 2 granddaughters from his only biological child, Fred Guerra Nicolle, Sr. Very involved in grandson's life. Doesn't see granddaughters regularly. Son Evert's partner, Rehana, is Fred's primary caregiver. She's been staying home with him. Son has also curtailed his business so he can be with his father. Evert used to live with a caregiver who took his money and neglected his medical needs, according to Evert and Rehana. Exam Narrative Exam Narrative: 1.Const: Well-nourished, Well-developed, appearing stated age 2.Eyes: PERRL, no conjunctival injection, and symmetrical lids. 3.ENT: Atraumatic external nose and ears. Moist MM. Neck: Symmetric, trachea midline, No thyromegaly. 4.CVS: +S1/S2, No murmurs or gallops. Peripheral pulses 2+ and equal in all extremities. Brisk capillary refill in all extremities. 5.RESP: Unlabored respiratory effort. Clear to auscultation bilaterally. No wheezes rales or rhonchi 6.GI: Soft, Nontender/Nondistended, No hepatosplenomegaly. No guarding or rebound. 7.MSK: Normocephalic/Atraumatic, Extremities w/o deformity or ttp No cyanosis or clubbing, Normal movement of all extremities 8.Skin: Warm, Dry. No rashes or lesions. 9.Neuro: spinning machine tender II-XII grossly intact. Dysdiadochokinesia with a deficit being on the right upper extremity. Difficulty performing hmmu-ba-[id number] using the right lower extremity. Intact jxfuay-[id number]-[id number] for both upper extremities. 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 Good strength bilaterally for the upper and lower extremities. Patient speech is slightly garbled, however daughter at bedside and EMS both state that this is his baseline since his stroke 10.Psych: (AAO) x. Appropriate mood and affect, patient does think that he is at the [facility] currently Course Vital Signs Vital signs: Vital Signs Temperature 36.3 C L 01/29/21 19:29 Pulse 52 L 01/29/21 19:29 Respiratory Rate 16 01/29/21 19:29 Blood Pressure 126/71 01/29/21 19:29 Pulse Oximetry 94 01/29/21 19:29 Temperature 36.3 C L 01/29/21 19:29 Pulse 52 L 01/29/21 19:29 Respiratory Rate 14 01/29/21 19:44 Respiratory Effort 01/29/21 19:44 Respiratory Pattern Normal 01/29/21 19:44 Blood Pressure 126/71 01/29/21 19:29 Pulse Oximetry 94 01/29/21 19:29 Pain Level 0 01/29/21 19:29 Lab/Test Results Lab/Test Results: Laboratory Tests Range/Units 01/29/21 01/29/21 01/29/21 19:35 19:35 19:35 WBC (4.4-10.8) 10^3/uL 9.19 RBC (4.36-5.78) 10^6/uL 4.13 L Hgb (13.5-17.5) g/dL 12.5 L Hct (40.0-50.0) % 38.1 L MCV (80-95) fL 92.3 MCH (27.0-33.0) pg 30.3 MCHC (32.0-36.0) % 32.8 RDW (11.8-14.1) % 14.3 H Plt Count (130-400) 10^3/uL 269 MPV (8.0-11.0) fL 9.4 Immature Gran % 0.2 Neutrophils % 47.9 Lymphocytes % 37.1 Monocytes % 7.3 Eosinophils % 6.6 Basophils % 0.9 Nucleated RBC % % 0 Absolute Neutrophils (1.2-6.7) 10^3/uL 4.40 Absolute Lymphocytes (1.2-3.4) 10^3/uL 3.41 H Absolute Monocytes (0.1-0.8) 10^3/uL 0.67 Absolute Eosinophils (0.0-0.7) 10^3/uL 0.61 Absolute Basophils (0.0-0.2) 10^3/uL 0.08 VBG pH (7.31-7.41) 7.30 L VBG pCO2 (41-51) mmHg 52 H VBG pO2 mmHg 41 VBG HCO3 (23-28) mmol/L 26 VBG Total CO2 (24-29) mmol/L 24 VBG O2 Saturation % 74 VBG Base Excess (-2-3) mmol/L 0 Ammonia (11-32) umol/L 18 COVID-19 Source Range/Units 01/29/ 19:55 WBC (4.4-10.8) 10^3/uL RBC (4.36-5.78) 10^6/uL Hgb (13.5-17.5) g/dL Hct (40.0-50.0) % MCV (80-95) fL MCH (27.0-33.0) pg MCHC (32.0-36.0) % RDW (11.8-14.1) % Plt Count (130-400) 10^3/uL MPV (8.0-11.0) fL Immature Gran % Neutrophils % Lymphocytes % Monocytes % Eosinophils % Basophils % Nucleated RBC % % Absolute Neutrophils (1.2-6.7) 10^3/uL Absolute Lymphocytes (1.2-3.4) 10^3/uL Absolute Monocytes (0.1-0.8) 10^3/uL Absolute Eosinophils (0.0-0.7) 10^3/uL Absolute Basophils (0.0-0.2) 10^3/uL VBG pH (7.31-7.41) VBG pCO2 (41-51) mmHg VBG pO2 mmHg VBG HCO3 (23-28) mmol/L VBG Total CO2 (24-29) mmol/L VBG O2 Saturation % VBG Base Excess (-2-3) mmol/L Ammonia (11-32) umol/L COVID-19 Source Nasal/Nares
[2021-01-29 20:23] LABS: ALT 8 U/L (16-63); AST 8 U/L (15-37); Albumin 3.9 g/dL (3.4-5.0); Alkaline Phosphatase 94 U/L (46-116); BUN 44 mg/dL (7-18); Bilirubin, Total 0.6 mg/dL (0.2-1.0); CREATININE 2.3 mg/dL (0.70-1.30); Calcium 9.1 mg/dL (8.5-10.1); Estimated GFR 28.17 (mL/min/1.73m2); Glucose 144 mg/dL (74-106); Total Protein 7.4 g/dL (6.4-8.2); Troponin I < 50 ng/L (<or=60)
[2021-01-29 20:27] LABS: TSH (W/Ref FT4) 25.98 uIU/mL (0.36-3.74)
[2021-01-29 20:35] LABS: Anion Gap 9.1 mmol/L (3-11); CO2 25.9 mmol/L (21.0-32.0); Chloride 103 mmol/L (98-107); Sodium 138 mmol/L (136-145)
--- NOTE | 2021-01-29 20:45 | DI.CT_ITS ---
Exam(s) CT HEAD WO EXAM: CT HEAD WO CLINICAL HISTORY: stroke like symptoms. TECHNIQUE: Imaging Protocol: Axial computed tomography images with coronal and sagittal reformatted images were created and reviewed COMPARISON: CT CT BRAIN NECK CTA from 08/21/2020 FINDINGS: Ventricles and Extra axial spaces: Normal in size and morphology for the patient's age. There is asym metric enlargement of the occipital horn of the left lateral ventricle which is related to the left o ccipital infarct. Hemorrhage: None. Cerebral parenchyma: No acute territorial infarct. Old left frontal and left occipital infarct. The re are areas of decreased attenuation in the white matter most consistent with chronic microvascular ischemic disease. Midline shift: None. Brainstem/Cerebellum: Normal. Calvarium: Normal. Visualized Paranasal sinuses/Mastoids: Clear. Soft Tissues: Unremarkable. IMPRESSION: No acute intracranial process. RADIATION DOSE DELIVERED: 727.37mGy.cm Total DLP DATA REPOSITORY: All CT scans at this facility are submitted to the National Radiology Data Registry (NRDR) Dose Index Registry (DIR) with the [employer] (ACR). RADIATION OPTIMIZATION: All CT scans at this facility use at least one of these dose optimization te chniques: automated exposure control; mA and/or kV adjustment per patient size (includes targeted exa ms where dose is matched to clinical indication); or iterative reconstruction.
[2021-01-29 20:55] LABS: ETHANOL BLOOD < 3.0 mg/dL (<10)
[2021-01-29 21:40] LABS: COVID-19 PCR Negative (Negative)
[2021-01-29 21:53] LABS: FREE T4 0.91 ng/dL (0.76-1.46)
--- NOTE | 2021-01-29 22:16 | DI.VRAD_ITS ---
PROCEDURE INFORMATION: Exam: XR Chest Exam date and time: 01/29/2021 8:55 PM Age: 70 years old Clinical indication: Patient HX: Cough, altered TECHNIQUE: Imaging protocol: XR of the chest. Views: 1 view. COMPARISON: XR PORTABLE CHEST AP 08/21/2020 11:26 AM FINDINGS: Lungs: The lungs are clear. There is no pulmonary vascular congestion. Pleural spaces: There are no pleural effusions present. Heart/Mediastinum: The cardiomediastinal silhouette is within normal limits. Diaphragm: Again noted is moderate elevation of the right hemidiaphragm. Bones/joints: Unremarkable. IMPRESSION: 1. No active cardiopulmonary disease identified. 2. Moderate elevation of the right hemidiaphragm, as on prior study. Dictated and Authenticated by: Artur Castle MD. Ordering:MADHAVI Lizarraga MD
--- NOTE | 2021-01-29 22:28 | DI.VRAD_ITS ---
PROCEDURE INFORMATION: Exam: CT Head Without Contrast Exam date and time: 01/29/2021 8:50 PM Age: 70 years old Clinical indication: Altered mental status/memory loss; Patient HX: Stroke like symptoms TECHNIQUE: Imaging protocol: Computed tomography of the head without contrast. COMPARISON: CT BRAIN NECK CTA 08/21/2020 11:24 AM FINDINGS: Brain: Again noted is focal region of encephalomalacia in the left occipital lobe involving both ruelas and white matter, unchanged from prior study, consistent with sequela of chronic infarct. There is a 2nd smaller region of encephalomalacia in the left posterior frontal parietal region, as seen around image 36, series 2, as on prior study, consistent with a smaller focal old infarct. There is otherwise normal ruelas-white differentiation throughout the brain. There is no CT evidence of acute cortical infarct. There is no intracranial mass or mass effect. The basilar cisterns are patent. There is moderate diffuse cerebral volume loss. There is moderate patchy hypodensity within the periventricular and subcortical white matter in the frontoparietal regions suggesting moderate chronic small vessel ischemic changes. There is no evidence for acute intra-axial or extra-axial hemorrhage. Cerebral ventricles: There is moderate ventriculomegaly, likely related to the diffuse cerebral volume loss. There is asymmetric enlargement of the occipital horn of the left lateral ventricle related to the left occipital infarct. Paranasal sinuses: Visualized sinuses are unremarkable. No fluid levels. Mastoid air cells: Visualized mastoid air cells are well aerated. Bones/joints: Unremarkable. No acute fracture. Soft tissues: Unremarkable. IMPRESSION: 1. No acute intracranial process identified. 2. Old left frontoparietal and occipital infarcts, as on prior study. Dictated and Authenticated by: Artur Castle MD. Ordering:MADHAVI Lizarraga MD
[2021-01-29 23:18] LABS: Troponin I < 50 ng/L (<or=60)
== END 2021-01-29 23:45 | disposition home or self-care (01) ==
PROVIDERS: Emergency Provider Student in an Organized Health Care Education/Training Program; PCP Internal Medicine Geriatric Medicine
DX: R55 Syncope and collapse (principal); N17.9 Acute kidney failure, unspecified; R41.82 Altered mental status, unspecified; R05.1 Acute cough; R53.1 Weakness; F10.11 Alcohol abuse, in remission
CPT/HCPCS: 36415; 80053; 82805; 87635; 93005; 96360; 96361; 99285; 70450; 71045; 80320; 82140; 84439; 84443; 84484; 85025; 93010; 99284

== ENCOUNTER 2021-02-17 21:46 | Emergency (ER) | payer MEDICARE, SELFPAY ==
[2021-02-17] VITALS (20 sets, daily range): BP systolic 127–177; BP diastolic 48–141; PULSE 64–88; RESP 15–21; TEMP 36.6; O2SAT 91–96
--- NOTE | 2021-02-17 21:45 | RT.EKG_ITS ---
APPROVED REPORT Exam: Resting ECG Reason for Exam: ? syncope Patient Location: E HR:71 bpm ECG Measurements Heart Rate 71 AXIS IA 201 P 67 QRSd 95 QRS 9 QT 408 T 63 QTc 443 Conclusion Sinus rhythm...normal P axis, V-rate 60- 99 Consider anteroseptal infarct...Q >30mS, dimin R, V1-V2 Borderline ST depression, lateral leads...ST <-0.07mV, I aVL V5 V6
--- NOTE | 2021-02-17 22:00 | DI.CT_ITS ---
Exam(s) CT HEAD WO EXAM: CT HEAD WO CLINICAL HISTORY: ? seizure. TECHNIQUE: Imaging Protocol: Axial computed tomography images with coronal and sagittal reformatted images were created and reviewed COMPARISON: CT CT HEAD WO from 01/29/2021 FINDINGS: There is moderate generalized cerebral atrophy. There is an apparent old left hemisphere infarct in volving parietal and occipital lobes. No evidence of acute intracranial hemorrhage, mass effect, or midline shift. The orbital structures are unremarkable. The temporal bone structures appear intact. Calvarium: Normal. Visualized Paranasal sinuses/Mastoids: Clear. IMPRESSION: No evidence of acute intracranial process.. RADIATION DOSE DELIVERED: 728.3mGy.cm Total DLP 728.3mGy.cm Total DLP 37.7mGy CTDIvol DATA REPOSITORY: All CT scans at this facility are submitted to the National Radiology Data Registry (NRDR) Dose Index Registry (DIR) with the [employer] (ACR). RADIATION OPTIMIZATION: All CT scans at this facility use at least one of these dose optimization te chniques: automated exposure control; mA and/or kV adjustment per patient size (includes targeted exa ms where dose is matched to clinical indication); or iterative reconstruction.
--- NOTE | 2021-02-17 22:10 | DI.RAD_ITS ---
Exam(s) XR CHEST 1V IN DI DEPT EXAM: XR CHEST 1V IN DI DEPT CLINICAL HISTORY: epigastric pain TECHNIQUE: COMPARISON: CR,XR XR PORTABLE CHEST AP from 08/21/2020 CR,XR XR PORTABLE CHEST AP from 08/21/2020 CR,XR XR CHEST 1V IN DI DEPT from 01/29/2021 FINDINGS: Portable AP chest was obtained at 2238 hours. The diaphragm is elevated on the right as noted on nicholas or examinations. Heart is not enlarged. Lungs appear predominantly clear, however there is question of interval development of new vaguely rounded radiopacity projected in the left mid lung over the i nferior scapula which was not present on prior radiographs of January 29.. No pleural effusion se en. IMPRESSION: Question new left sided consolidation or mass. Chest CT recommended for further evaluation. Findings were discussed with the ER physician. RADIATION DOSE DELIVERED: Total DLP
[2021-02-17 22:20] LABS: Abs Immature Grans 0.04 10^3/uL (0.0-0.06); Absolute Basophil Count 0.06 10^3/uL (0.0-0.2); Absolute Eosinophil Count 0.35 10^3/uL (0.0-0.7); Absolute Lymphocyte Count 2.39 10^3/uL (1.2-3.4); Absolute Monocyte Count 0.83 10^3/uL (0.1-0.8); Absolute Neutrophil Count 7.02 10^3/uL (1.2-6.7); Basophils % 0.6; Eosinophils % 3.3; HCT 41.7 % (40.0-50.0); HGB 13.6 g/dL (13.5-17.5); Immature Grans % 0.4; Lymphocytes % 22.4; MCH 29.4 pg (27.0-33.0); MCHC 32.6 % (32.0-36.0); MCV 90.1 fL (80-95); MPV 9.3 fL (8.0-11.0); Monocytes % 7.8; Neutrophils % 65.5; Nucleated RBC 0 %; Platelet Count 289 10^3/uL (130-400); RBC 4.63 10^6/uL (4.36-5.78); RDW 14.4 % (11.8-14.1); RDW-SD 47.8 fL; WBC 10.69 10^3/uL (4.4-10.8)
--- NOTE | 2021-02-17 22:22 | ED.GENADUL_ITS ---
Discharge Plan Disposition Patient Disposition: HOME Condition: Stable Discharge Details Clinical Impression: Alcoholic dementia, Syncope Primary Care Provider: Cierra Albright ED Provider: Ariel Mac Home Meds and New Rx's Prescriptions: Continued atorvastatin 20 mg tablet 20 mg PO QHS Qty: 90 RF: 0 lisinopril 10 mg tablet 10 mg PO DAILY Qty: 90 RF: 0 polyethylene glycol 3350 17 gram/dose powder 17 g PO DAILY PRN (Reason: constipation) Qty: 510 RF: 0 cholecalciferol (vitamin D3) 50 mcg (2,000 unit) capsule 50 mcg PO DAILY Qty: 90 RF: 0 mecobalamin (vitamin B12) 1,000 mcg tablet,disintegrating 1,000 mcg sublingual DAILY Qty: 90 RF: 0 guaifenesin 600 mg tablet extended release 12hr 600 mg PO .every other day Qty: 90 RF: 0 albuterol sulfate 90 mcg/actuation Hfa Aerosol Inhaler 2 puff INHALATION Q6H PRNRF: 0 aspirin 325 mg Tablet 325 mg PO DAILY RF: 0 amlodipine 5 mg Tablet 10 mg PO DAILY Qty: 60 RF: 0 budesonide-formoterol [Symbicort] 160-4.5 mcg/actuation Hfa Aerosol Inhaler 2 puff inhalation BID Qty: 6 RF: 1 acetaminophen 500 mg tablet 500 mg PO Q8H PRN (Reason: pain) Qty: 60 RF: 3 famotidine 20 mg Tablet 20 mg PO BID RF: 0 doxazosin 2 mg tablet 2 mg RF: 0 hydrochlorothiazide 12.5 mg Tablet 12.5 mg PO DAILY RF: 0 metoprolol succinate 100 mg tablet extended release 24 hr 150 mg PO DAILY RF: 0 Discharge Instructions Additional Instructions: your blood work and imaging showed no concerning images at this time follow up with your primary care provider within 1 week if you feel more ill, have difficulty breathing or severe pain return to the emergency department Medical Decision Making <SHEREE Quiroz - Last Filed: 02/17/21 22:56> This is a 70-year-old gentleman with extensive pathological history, DNR, DNI, presenting to the ER via EMS for question of seizure, syncopal episode, hypertensive, abdominal pain. Patient is currently asymptomatic, seems pleasantly confused with slightly garbled speech. When reviewing previous records, this would appear to be at his baseline. I was able to speak with his son and [id number] and they tell me that his daughter will be coming to the ER to be with him. At this time they would like to pursue a full work-up. Given he had epigastric discomfort with left arm pain will obtain a cardiac work-up including a delta troponin, will obtain IV access, give IV fluid 125 an hour, and given his potential syncopal episode versus seizure, will obtain CT of the head. Initial laboratory values do not reveal any obvious emergent process. His renal function actually appears improved when compared to recent ER visit. Although his TSH is over 15, this is also improved when compared to most recent ER visit. Patient remains asymptomatic. CT imaging of brain and x-ray of chest. Awaiting delta troponin. In the meantime we contacted his daughter, Kaelyn, who reports that she will be coming to the ER to be with him. Medical Records Medical records reviewed: Yes I reviewed the patient's medical records. Imaging Data Radiologic Study: Attestation: I personally reviewed and interpreted this imaging study as follows: Imaging: CT Scan Radiologist's impression: PROCEDURE INFORMATION: Exam: CT Head Without Contrast Exam date and time: 02/17/2021 10:14 PM Age: 70 years old Clinical indication: Condition or disease; Patient HX: ? Seizure TECHNIQUE: Imaging protocol: Computed tomography of the head without contrast. COMPARISON: CT HEAD WO 01/29/2021 8:45 PM FINDINGS: Brain: Age- related chronic microvascular changes are noted within the white matter. Multifocal left parietal and posterior temporal occipital encephalomalacia compatible with distant prior infarct. Cerebral ventricles: The ventricles and sulci are prominent compatible with age- appropriate atrophy. Paranasal sinuses: Visualized sinuses are unremarkable. No fluid levels. Mastoid air cells: Visualized mastoid air cells are well aerated. Bones/joints: Unremarkable. No acute fracture. Soft tissues: Unremarkable. IMPRESSION: 1. Age-appropriate atrophy and chronic microvascular change. 2. Multifocal left parietal and posterior temporal occipital encephalomalacia compatible with distant prior infarct. Radiologic Study #2: Attestation: I personally reviewed and interpreted this imaging study as follows: Imaging: X-Ray Radiologist's impression: PROCEDURE INFORMATION: Exam: XR Chest Exam date and time: 02/17/2021 10:19 PM Age: 70 years old Clinical indication: Other: Epigastric pain TECHNIQUE: Imaging protocol: XR of the chest. Views: 1 view. COMPARISON: XR CHEST 1V IN DI DEPT 01/29/2021 8:53 PM FINDINGS: Lungs: Unremarkable. No consolidation. Pleural spaces: Unremarkable. No pleural effusion. No pneumothorax. Heart/Mediastinum: Unremarkable. No cardiomegaly. Diaphragm: Elevated right hemidiaphragm Bones/joints: Unremarkable. IMPRESSION: No acute findings Elevated right hemidiaphragm incidentally noted ECG Data Attestation: I personally reviewed and interpreted this ECG (s) as follows: Interpretation: Please see official report by Dr. Mac. Sinus rhythm, ventricular rate of 71. Borderline ST depression. No STEMI <Ariel Mac MD - Last Filed: 02/18/21 00:33> patient resting in bed without complaints laughing intermittently in no distress, initial labs unremarkable, will obtain delta troponin. Discussed his polst form with his daughter and agrees he would want limited interventions, dnr /dni. pt still asymptomatic and stable, delta troponin negative, stable for d/c and advised to f/u with pcp and return precautions given HPI <SHEREE Quiroz - Last Filed: 02/17/21 22:56> General Mode of arrival: EMS . Date/Time Provider Initiated Documentation: 02/17/21 21:48 . Limitations to Documentation: other (dementia) . Information obtained by: patient and family (Son Fred and [id number]) . HPI Narrative: This is a 70-year-old male, DNR, DNI, past medical history that includes chronic alcohol abuse, CAD, depression, hepatitis C, impaired cognition, former smoker, COPD, hypertension, vascular and alcoholic dementia, postoperative CVA, lives at home with his son and [id number], presenting to the ER via EMS for evaluation of potential syncopal episode. Unfortunately the circumstances regarding his presentation are quite confusing and limited. Currently patient is asymptomatic, reports feeling well and has no concerns or complaints. They told me I might have passed out. I was able to speak with his son and [id number], they state that he was in the ER a couple of weeks ago for similar presentation. Since that time he has been doing fairly well, was wearing a Holter monitor but that was taken off on . He went to bed and yelled out to his son a couple of times help. Apparently sometime thr oughout the evening he reported fleeting abdominal pain and nausea, no vomiting. When they went into his bedroom they stated that his eyes rolled back in his head but it did not look like as though he ever lost consciousness. They state at that time he pointed to his epigastric region and complained of some discomfort and also reported pain in his left arm. Blood pressure was taken at home and noted to be elevated. His son Fred tells me that he regrets signing the DNR-DNI, and would like to discuss this in greater length with his primary care provider. At this time they would like a evaluation to proceed. I am told that his daughter will be coming to the ER to be with him. Related Data Home Medications Medication Instructions Recorded Confirmed albuterol sulfate 2 puff INHALATION Q6H PRN 03/05/18 11/05/20 aspirin 325 mg PO DAILY 09/18/18 01/29/21 amlodipine 10 mg PO DAILY #60 tab 09/20/18 01/29/21 budesonide-formoterol [Symbicort] 2 puff INHALATION BID #6 g 09/20/18 11/05/20 acetaminophen 500 mg PO Q8H PRN #60 tab 10/09/18 11/05/20 atorvastatin 20 mg tablet 20 mg PO QHS #90 tab 11/05/20 01/29/21 cholecalciferol (vitamin D3) 50 50 mcg PO DAILY #90 cap 11/05/20 01/29/21 mcg (2,000 unit) capsule guaifenesin 600 mg tablet, 600 mg PO .every other day #90 tab 11/05/20 11/05/20 extended release 12 hr lisinopril 10 mg tablet 10 mg PO DAILY #90 tab 11/05/20 01/29/21 mecobalamin (vitamin B12) 1,000 1,000 mcg SUBLINGUAL DAILY #90 tab 11/05/20 01/29/21 mcg disintegrating tablet,sublingual polyethylene glycol 3350 17 17 g PO DAILY PRN #510 g 11/05/20 11/05/20 gram/dose oral powder doxazosin 2 mg 01/29/21 famotidine 20 mg PO BID 01/29/21 01/29/21 hydrochlorothiazide 12.5 mg PO DAILY 01/29/21 01/29/21 metoprolol succinate 150 mg PO DAILY 01/29/21 01/29/21 Previous Rx's Medication Instructions Recorded amlodipine 10 mg PO DAILY #60 tab 09/20/18 budesonide-formoterol [Symbicort] 2 puff INHALATION BID #6 g 09/20/18 acetaminophen 500 mg PO Q8H PRN #60 tab 10/09/18 atorvastatin 20 mg tablet 20 mg PO QHS #90 tab 11/05/20 cholecalciferol (vitamin D3) 50 50 mcg PO DAILY #90 cap 11/05/20 mcg (2,000 unit) capsule guaifenesin 600 mg tablet, 600 mg PO .every other day #90 tab 11/05/20 extended release 12 hr lisinopril 10 mg tablet 10 mg PO DAILY #90 tab 11/05/20 mecobalamin (vitamin B12) 1,000 1,000 mcg SUBLINGUAL DAILY #90 tab 11/05/20 mcg disintegrating tablet,sublingual polyethylene glycol 3350 17 17 g PO DAILY PRN #510 g 11/05/20 gram/dose oral powder Allergies Allergy/AdvReac Type Severity Reaction Status Date / Time clopidogrel [From Plavix] Allergy Unknown Unverified 02/17/21 23:26 simvastatin Allergy Unknown Unverified 02/17/21 23:26 General Stated Complaint: GenMedical JUSTINE: 3 Review of Systems <SHEREE Quiroz - Last Filed: 02/17/21 22:56> Constitutional Constitutional: Denies fatigue, Denies fever(s) and Denies headache(s) Eyes Eyes: Denies change in vision ENT Ears, Nose, Mouth, and Throat: Denies headache(s) and Denies neck pain Cardiovascular Cardiovascular: Denies chest pain and Denies dyspnea Respiratory Respiratory: Denies cough and Denies dyspnea Gastrointestinal Gastrointestinal: Reports abdominal pain (Per family, patient denies) Genitourinary Genitourinary: Denies dysuria Musculoskeletal Musculoskeletal: Denies neck pain Integumentary/Breasts Skin/Breast: Denies rash Neurologic Neurologic: Denies headache(s) Endocrine Endocrine: Denies fatigue Hematologic/Lymphatic Hematologic/Lymphatic: Denies easy bleeding and Denies easy bruising PFSH <SHEREE Quiroz - Last Filed: 02/17/21 22:56> All Active Problems (Updated 02/17/21 @ 23:37 by Ariel Mac MD) Syncope (Chronic) Acute kidney injury (Acute) Goals of care, counseling/discussion (Acute) DNI (do not intubate) (Acute) DNR (do not resuscitate) (Acute) POLST (Physician Orders for Life-Sustaining Treatment) (Acute) DNR/DNI signed by pt and son([id number]) 11/02/20 Retinal hemorrhage, right eye (Acute) 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) right hand/arm, following postop stroke Chronic post-traumatic stress disorder (PTSD) after combat (Chronic) apparent when delirious, hospitalized, stressed physically or mentally History of delusional disorder (Acute) when hospitalized, mentation deteriorates gets paranoid Postoperative stroke (Chronic) August 2020, following left CEA History of left-sided carotid endarterectomy (Acute) Left-sided carotid artery disease (Acute) Palliative care patient (Acute) 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) [facility] History of traumatic brain injury (Acute) Vascular dementia (Acute) Alcoholic dementia (Acute) History of smoking (Acute) Closed left radial fracture (Acute) s/p ORIF L distal radius 10/09/2018 Peripheral vascular disease of extremity with claudication (Acute) Hypertension (Chronic) COPD (chronic obstructive pulmonary disease) (Chronic) Diverticulitis large intestine (Acute) Pneumothorax, left (Acute) Left rib fracture (Acute) Medical History Abnormal gait Alcohol abuse Cataract Coronary artery disease Depression Erectile dysfunction Hepatitis C treated with Ribavirin and interferon. PCR qual neg 11/1999 Impaired cognition Memory loss Tobacco dependence quit 2019 Vitamin D deficiency Surgical History H/O right knee surgery Status post closed fracture of femur s/p repair Family History Son Diabetes Pancreatitis, acute Grandson No problems noted. Mother , age 95 from DM2 and heart disease Heart disease Diabetes Father , in his early 50s from etohism Alcohol use disorder Sister Colon cancer Granddaughter Substance use disorder Other Cancer Social History Smoking/Tobacco Use Status: Former Tobacco Use Tobacco: How many years used: 52 Second Hand Exposure: No Counseling given: provider counseling Smoking risk assessment performed?: Yes Alcohol Intake: former Counseling given: Yes Drug use: Daily Substance use type: marijuana Counseling given: No Details: stopped drinking 2017, except for rare exceptions quit smoking August 2020 Caregiver/Support person: Yes Household members: family Housing: house Number of Children: 1 number of grandchildren: 3 Communication Needs: Hard of Hearing and Corrective Lenses Education Level: high school Do you need help understanding health information?: Always 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, [employer], 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 Pets and animals: Yes Current gender identity: male What is your relationship status?: How often do you talk on the phone with friends or family?: never How often do you get together with friends or relatives?: twice per week Panel score (0-1 are the most socially isolated patients): 0 What type of physical activity do you participate in: walking and sedentary lifestyle Duration: 15-30 minutes/day Special roslyn needs: No Agree to transfusion: No Seatbelt use: sometimes Helmet use: No Working smoke detector in home: Yes Fire extinguisher in home: Yes Do you feel safe at home: Yes Do you feel safe in your relationship?: Yes Additional Social history: Patient lives with his son, daughter in-law and grandson Patient receives his care at the OR, Dr Albright is his current MD, likes her very much. Has 2 granddaughters from his only biological child, Fred Guerra Nicolle, Sr. Very involved in grandson's life. Doesn't see granddaughters regularly. Son Evert's partner, Rehana, is Fred's primary caregiver. She's been staying home with him. Son has also curtailed his business so he can be with his father. Evert used to live with a caregiver who took his money and neglected his medical needs, according to Evert and Rehana. Exam <SHEREE Quiroz - Last Filed: 02/17/21 22:56> Const General: cooperative, comfortable and no acute distress Orientation: alert, awake, oriented to person and oriented to place [facility] Head: normal to inspection, normocephalic and atraumatic Face and sinus: normal facial exam Mouth: moist mucous membranes Eyes General: appearance normal, both eyes and all related structures Conjunctivae: conjunctivae normal Neck Neck: normal visual inspection, full ROM, trachea midline, supple and nontender Resp Effort & Inspection: normal respiratory effort and able to speak in complete sentences Auscultation: diminished lung sounds bilaterally in the lower lung fay Cardio Rate: regular rate Rhythm: regular rhythm GI Inspection: normal to inspection Palpation: soft, not firm, no guarding, no pulsatile masses and nontender Auscultation: normal bowel sounds Back/Spine/Pelvis Back: No back tenderness Skin General skin exam: no rashes or lesions noted Neuro General: patient alert, patient awake, moves all extremities and no focal motor deficits Cranial Nerves: CN's II-XI intact bilaterally Cognition: normal cognition Speech: abnormal speech garbled Motor: muscle tone normal throughout Sensory Exam: no sensory deficits noted Extrem General: normal to inspection, full ROM and capillary refill normal Psych Appearance: grossly normal Mental Status: mental status grossly normal Course <SHEREE Quiroz - Last Filed: 02/17/21 22:56> Vital Signs Vital signs: Vital Signs Temperature 36.6 C 02/17/21 21:45 Pulse 73 02/17/21 21:45 Respiratory Rate 18 02/17/21 21:45 Blood Pressure 143/71 H 02/17/21 21:45 Pulse Oximetry 96 02/17/21 21:45 Temperature 36.6 C 02/17/21 21:45 Temperature Source Skin 02/17/21 21:45 Pulse 73 02/17/21 21:45 Respiratory Rate 18 02/17/21 21:45 Respiratory Effort Non-Labored 02/17/21 22:05 Blood Pressure 143/71 H 02/17/21 21:45 Blood Pressure Position Sitting 02/17/21 21:45 Pulse Oximetry 96 02/17/21 21:45 Oxygen Delivery Method Room Air 02/17/21 21:45 Oxygen Flow Rate 0 02/17/21 21:45 Pain Level 0 02/17/21 21:45 Sign Out <SHEREE Quiroz - Last Filed: 02/17/21 22:56> Sign Out Data: Sign Out Comment: Awaiting delta troponin, urinalysis, and final disposition. Last updated by Johnny Wick PA at 02/17/21 22:57
--- NOTE | 2021-02-17 22:36 | DI.VRAD_ITS ---
PROCEDURE INFORMATION: Exam: CT Head Without Contrast Exam date and time: 02/17/2021 10:14 PM Age: 70 years old Clinical indication: Condition or disease; Patient HX: ? Seizure TECHNIQUE: Imaging protocol: Computed tomography of the head without contrast. COMPARISON: CT HEAD WO 01/29/2021 8:45 PM FINDINGS: Brain: Age- related chronic microvascular changes are noted within the white matter. Multifocal left parietal and posterior temporal occipital encephalomalacia compatible with distant prior infarct. Cerebral ventricles: The ventricles and sulci are prominent compatible with age-appropriate atrophy. Paranasal sinuses: Visualized sinuses are unremarkable. No fluid levels. Mastoid air cells: Visualized mastoid air cells are well aerated. Bones/joints: Unremarkable. No acute fracture. Soft tissues: Unremarkable. IMPRESSION: 1. Age-appropriate atrophy and chronic microvascular change. 2. Multifocal left parietal and posterior temporal occipital encephalomalacia compatible with distant prior infarct. Dictated and Authenticated by: Riki Ayers MD. Ordering:GIBSON Turner MD
--- NOTE | 2021-02-17 22:40 | DI.VRAD_ITS ---
PROCEDURE INFORMATION: Exam: XR Chest Exam date and time: 02/17/2021 10:19 PM Age: 70 years old Clinical indication: Other: Epigastric pain TECHNIQUE: Imaging protocol: XR of the chest. Views: 1 view. COMPARISON: XR CHEST 1V IN DI DEPT 01/29/2021 8:53 PM FINDINGS: Lungs: Unremarkable. No consolidation. Pleural spaces: Unremarkable. No pleural effusion. No pneumothorax. Heart/Mediastinum: Unremarkable. No cardiomegaly. Diaphragm: Elevated right hemidiaphragm Bones/joints: Unremarkable. IMPRESSION: No acute findings Elevated right hemidiaphragm incidentally noted Dictated and Authenticated by: Riki Ayers MD. Ordering:GIBSON Turner MD
[2021-02-17 22:46] LABS: ALT 16 U/L (16-63); AST 18 U/L (15-37); Albumin 4.2 g/dL (3.4-5.0); Alkaline Phosphatase 126 U/L (46-116); Anion Gap 8.3 mmol/L (3-11); BUN 27 mg/dL (7-18); Bilirubin, Total 0.7 mg/dL (0.2-1.0); CO2 29.7 mmol/L (21.0-32.0); Calcium 9.2 mg/dL (8.5-10.1); Chloride 98 mmol/L (98-107); ETHANOL BLOOD < 3.0 mg/dL (<10); Glucose 113 mg/dL (74-106); Lipase 50 U/L (73-393); Magnesium 2.4 mg/dL (1.8-2.4); Potassium 3.8 mmol/L (3.5-5.1); Sodium 136 mmol/L (136-145); Total Protein 8.3 g/dL (6.4-8.2); Troponin I < 50 ng/L (<or=60)
[2021-02-17 22:48] LABS: TSH (W/Ref FT4) 15.94 uIU/mL (0.36-3.74)
[2021-02-17 23:04] LABS: FREE T4 1.01 ng/dL (0.76-1.46)
[2021-02-17] MEDS: Normal Saline 1,000 ML 125 ML IV (23:10)
[2021-02-17 23:11] LABS: Bilirubin Negative (Negative); Blood Trace-intact (Negative); Clarity Clear (Clear); Glucose Negative (Negative); Ketones Trace mg/dL (Negative); Leukocyte Esterase Negative (Negative); Nitrite Negative (Negative); Specific Gravity 1.025 (1.005-1.025); Urobilinogen 0.2 EU/dL (Up TO 0.2)
[2021-02-17] MEDS: Acetaminophen 325 MG TAB (23:19)
[2021-02-17 23:26] LABS: RBC 0-2 HPF (0-2); WBC Negative HPF (0-5)
[2021-02-17 23:27] LABS: Bacteria Rare HPF (Negative); C & S Indicated? No; Casts Negative LPF (Negative); Crystals Negative HPF (Negative); Epithelial Cells Rare HPF (Negative); Mucus Negative (Negative)
[2021-02-18] VITALS: PULSE 87; RESP 16
[2021-02-18 00:02] VITALS: BP 69/27; PULSE 72; PULSE 85; RESP 19
[2021-02-18 00:10] VITALS: PULSE 81; RESP 20
[2021-02-18 00:24] LABS: Troponin I < 50 ng/L (<or=60)
--- NOTE | 2021-02-18 20:43 | W.ED.FU ---
Dr. Patricia called to note that there was a discrepancy in the chest x-ray done in the ED on 02/17/2021. Virtual radiology read the chest x-ray is negative but he notes: IMPRESSION: Question new left sided consolidation or mass. Chest CT recommended for further evaluation. Patient placed on care management list to follow-up with patient and discuss with patient or his daughter if he would like to proceed with CT chest as the ED record from 02/17 stated that daughter wanted limited interventions as patient is DNR/DNI.
--- NOTE | 2021-02-19 15:51 | CMACTNOTE_ITS ---
- If Service Date Differs Date of service: 02/19/21 Time of Service: 15:51 Care Management Activity Note Fred was seen in the ED on 02/17/2021 for syncope and abdominal pain. A chest x-ray done in the ED at the time of the visit questions a new left sided consolidation or mass and recommends a CT of the chest for further evaluation. At the request of ED provider, GISSEL telephones Fred's daughter, Kaelyn, to ask if a CT of the chest should be ordered, as daughter has requested limited interv ention on 02/17/2021. GISSEL is unable to speak with Kaelyn as there is no answer. A message is left asking she return the phone call.
== END 2021-02-18 00:50 | disposition home or self-care (01) ==
PROVIDERS: Physician Assistant; Emergency Provider Emergency Medicine; PCP Internal Medicine Geriatric Medicine
DX: F10.27 Alcohol dependence with alcohol-induced persisting dementia (principal); R55 Syncope and collapse; R10.13 Epigastric pain; M79.602 Pain in left arm; I10 Essential (primary) hypertension; F10.20 Alcohol dependence, uncomplicated; R91.8 Other nonspecific abnormal finding of lung field
CPT/HCPCS: 36415; 80053; 83690; 93005; 99285; 70450; 71045; 80320; 81003; 81015; 83735; 84439; 84443; 84484; 85025; 93010; 99284

== ENCOUNTER 2021-08-09 15:00 | Emergency (ER) | payer MEDICARE, SELFPAY ==
--- NOTE | 2021-08-09 15:00 | DI.RAD_ITS ---
Exam(s) XR FOOT RT COMPLETE EXAM: XR FOOT RT COMPLETE CLINICAL HISTORY: right toe injury/pain. TECHNIQUE: 2D digital imaging was performed. Three views. COMPARISON: No exams were available for comparison FINDINGS: BONES: Bones are osteoporotic. Nondisplaced fracture at the medial base of the proximal phalanx of t he great toe. No visible separation at the articular surface. No additional fractures identified. No bony destructive lesion is seen. JOINTS: No dislocation present. SOFT TISSUE: Normal. IMPRESSION: Nondisplaced fracture medial base of the proximal phalanx of the great toe. DATA REPOSITORY: RADIATION DOSE DELIVERED:
[2021-08-09 15:05] VITALS: BP 162/60; PULSE 81; RESP 18; TEMP 36.7; O2SAT 99
--- NOTE | 2021-08-09 15:17 | W.ED.GENAD ---
Discharge Plan Disposition Patient Disposition: HOME Condition: Stable Discharge Details Clinical Impression: Closed fracture of great toe of right foot Primary Care Provider: Cierra Albright ED Provider: Josephine Chisholm Home Meds and New Rx's Prescriptions: Continued atorvastatin 20 mg tablet 20 mg PO QHS Qty: 90 0RF lisinopril 10 mg tablet 10 mg PO DAILY Qty: 90 0RF polyethylene glycol 3350 17 gram/dose powder 17 g PO DAILY PRN (Reason: constipation) Qty: 510 0RF cholecalciferol (vitamin D3) 50 mcg (2,000 unit) capsule 50 mcg PO DAILY Qty: 90 0RF mecobalamin (vitamin B12) 1,000 mcg tablet,disintegrating 1,000 mcg sublingual DAILY Qty: 90 0RF Rx Instructions: place tablet under tongue and allow to dissolve for at least30 secs before swallowing guaifenesin 600 mg tablet extended release 12hr 600 mg PO .every other day Qty: 90 0RF albuterol sulfate 90 mcg/actuation Hfa Aerosol Inhaler 2 puff INHALATION Q6H PRN aspirin 325 mg Tablet 325 mg PO DAILY amlodipine 5 mg Tablet 10 mg PO DAILY Qty: 60 0RF budesonide-formoterol [Symbicort] 160-4.5 mcg/actuation Hfa Aerosol Inhaler 2 puff inhalation BID Qty: 6 1RF acetaminophen 500 mg tablet 500 mg PO Q8H PRN (Reason: pain) Qty: 60 3RF famotidine 20 mg Tablet 20 mg PO BID doxazosin 2 mg tablet 2 mg Label Comments: TAKE 1 TABLET BY MOUTH EVERY DAY hydrochlorothiazide 12.5 mg Tablet 12.5 mg PO DAILY metoprolol succinate 100 mg tablet extended release 24 hr 150 mg PO DAILY Rx Instructions: takes with 50 mg tab for dose of 150 mg daily Discharge Instructions Additional Instructions: Take Tylenol as needed for pain For pain uncontrolled with Tylenol take 2.5 mg or half a tablet of oxycodone as needed This medication will likely make you lightheaded, he should use caution with walking Follow-up with orthopedic Use your walker at home to help you with ambulation Take the potassium as prescribed and follow-up with your doctor regarding this test Return earlier should he have new or worsening complaints Referrals: Serjio Aguirre MD [ [facility] STAFF PHYSICIAN] - Discharge Data Discharge Date/Time-TO BE ENTERED AT DEPARTURE: 06/23/22 16:48 Medical Decision Making <Austin Stephenson NP - Last Filed: 08/12/21 15:43> Patient presenting to the emergency department for chief complaint of right toe pain. Patient denies any known injury or trauma but does state he has had pain and discomfort for the past week. Physical exam shows slight swelling to the right MTP of the great toe along with erythema and tenderness to this area. Patient does have the slight appearance of chronic vascular disease. Exam is otherwise unremarkable. Suspect occult injury versus gout. Patient does have significant history of renal insufficiency so we will plan on checking labs and x-ray imaging before treating patient's pain. <SHEREE Bloom - Last Filed: 08/09/21 18:12> Patient presenting to the emergency department for chief complaint of right toe pain. Patient denies any known injury or trauma but does state he has had pain and discomfort for the past week. Physical exam shows slight swelling to the right MTP of the great toe along with erythema and tenderness to this area. Patient does have the slight appearance of chronic vascular disease. Exam is otherwise unremarkable. Suspect occult injury versus gout. Patient does have significant history of renal insufficiency so we will plan on checking labs and x-ray imaging before treating patient's pain. LB 1600 x-ray shows a proximal feeling on the first digit fracture Labs stable for patient, mild hypokalemia at 3.3, this was supplemented Patient given several tablets of oxycodone with risk of addiction discussed Placed in a walking boot and placed on orthopedic list for follow-up No open fracture visualized Patient ambulatory with antalgic gait steady and safe for discharge home on her stable to assist him in his home Return precautions discussed and patient expressed understanding HPI <Austin Stephenson NP - Last Filed: 08/12/21 15:43> General Mode of arrival: wheelchair. Date/Time Provider Initiated Documentation: 08/09/21 15:12. Limitations to Documentation: no limitations. Information obtained by: patient, RN notes reviewed and old records reviewed. History of Present Illness 70 year old M presents to the emergency department with the chief complaint of right foot/toe pain, described as moderate, with intensity rated at 6. Quality is described as aching, and is localized to the right and lower extremity. Patient reports no radiation. Patient started experiencing this week(s) (1) and it has been constant. No relieving factors improve symptom(s), No exacerbating factors reported . Patient notes no other symptoms.. Patient did receive the following treatments prior to arrival, none Related Data Home Medications Medication Instructions Recorded Confirmed albuterol sulfate 90 mcg/actuation 2 puff inhalation Q6H PRN 03/05/18 08/09/21 aerosol inhaler aspirin 325 mg tablet 325 mg PO DAILY 09/18/18 08/09/21 amlodipine 5 mg tablet 10 mg PO DAILY #60 tabs 09/20/18 08/09/21 budesonide-formoterol HFA 160 2 puff inhalation BID #6 grams 09/20/18 08/09/21 mcg-4.5 mcg/actuation aerosol inhaler (Symbicort) acetaminophen 500 mg tablet 500 mg PO Q8H PRN pain #60 tabs 10/09/18 08/09/21 atorvastatin 20 mg tablet 20 mg PO QHS #90 tabs 11/05/20 08/09/21 cholecalciferol (vitamin D3) 50 50 mcg PO DAILY #90 caps 11/05/20 08/09/21 mcg (2,000 unit) capsule guaifenesin 600 mg tablet, 600 mg PO .every other day #90 tabs 11/05/20 08/09/21 extended release 12 hr lisinopril 10 mg tablet 10 mg PO DAILY #90 tabs 11/05/20 08/09/21 mecobalamin (vitamin B12) 1,000 1,000 mcg sublingual DAILY #90 tabs 11/05/20 08/09/21 mcg disintegrating tablet,sublingual polyethylene glycol 3350 17 17 g PO DAILY PRN constipation 11/05/20 08/09/21 gram/dose oral powder #510 grams doxazosin 2 mg tablet 2 mg 01/29/21 famotidine 20 mg tablet 20 mg PO BID 01/29/21 08/09/21 hydrochlorothiazide 12.5 mg tablet 12.5 mg PO DAILY 01/29/21 08/09/21 metoprolol succinate 100 mg 150 mg PO DAILY 01/29/21 08/09/21 tablet,extended release 24 hr Previous Rx's Medication Instructions Recorded amlodipine 5 mg tablet 10 mg PO DAILY #60 tabs 09/20/18 budesonide-formoterol HFA 160 2 puff inhalation BID #6 grams 09/20/18 mcg-4.5 mcg/actuation aerosol inhaler (Symbicort) acetaminophen 500 mg tablet 500 mg PO Q8H PRN pain #60 tabs 10/09/18 atorvastatin 20 mg tablet 20 mg PO QHS #90 tabs 11/05/20 cholecalciferol (vitamin D3) 50 50 mcg PO DAILY #90 caps 11/05/20 mcg (2,000 unit) capsule guaifenesin 600 mg tablet, 600 mg PO .every other day #90 tabs 11/05/20 extended release 12 hr lisinopril 10 mg tablet 10 mg PO DAILY #90 tabs 11/05/20 mecobalamin (vitamin B12) 1,000 1,000 mcg sublingual DAILY #90 tabs 11/05/20 mcg disintegrating tablet,sublingual polyethylene glycol 3350 17 17 g PO DAILY PRN constipation 11/05/20 gram/dose oral powder #510 grams Allergies Allergy/AdvReac Type Severity Reaction Status Date / Time clopidogrel [From Plavix] Allergy Unknown Unverified 08/09/21 15:10 simvastatin Allergy Unknown Unverified 08/09/21 15:10 General Stated Complaint: Orthopedic JUSTINE: 4 Review of Systems <Austin Stephenson NP - Last Filed: 08/12/21 15:43> Constitutional Constitutional: Denies chills, Denies fever(s) and Denies malaise Cardiovascular Cardiovascular: Denies chest pain and Denies dyspnea Respiratory Respiratory: Denies dyspnea Gastrointestinal Gastrointestinal: Denies abdominal pain Musculoskeletal Musculoskeletal: Reports as per HPI, Reports arthralgias, Reports joint swelling, Denies numbness and Denies tingling Integumentary/Breasts Skin/Breast: Reports erythema and Denies rash Neurologic Neurologic: Denies numbness, Denies tingling and Denies paresthesias [facility] <Austin Stephenson NP - Last Filed: 08/12/21 15:43> All Active Problems (Updated 08/09/21 @ 16:35 by SHEREE Bloom) Closed fracture of great toe of right foot (Acute) Syncope (Chronic) Acute kidney injury (Acute) Goals of care, counseling/discussion (Acute) DNI (do not intubate) (Acute) DNR (do not resuscitate) (Acute) POLST (Physician Orders for Life-Sustaining Treatment) (Acute) DNR/DNI signed by pt and son(DPOA) 11/02/20 Retinal hemorrhage, right eye (Acute) 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) right hand/arm, following postop stroke Chronic post-traumatic stress disorder (PTSD) after combat (Chronic) apparent when delirious, hospitalized, stressed physically or mentally History of delusional disorder (Acute) when hospitalized, mentation deteriorates gets paranoid Postoperative stroke (Chronic) August 2020, following left CEA History of left-sided carotid endarterectomy (Acute) Left-sided carotid artery disease (Acute) 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) [facility] History of traumatic brain injury (Acute) Vascular dementia (Acute) Alcoholic dementia (Acute) History of smoking (Acute) Closed left radial fracture (Acute) s/p ORIF L distal radius 10/09/2018 Peripheral vascular disease of extremity with claudication (Acute) Hypertension (Chronic) COPD (chronic obstructive pulmonary disease) (Chronic) Diverticulitis large intestine (Acute) Pneumothorax, left (Acute) Left rib fracture (Acute) Medical History Abnormal gait Alcohol abuse Cataract Coronary artery disease Depression Erectile dysfunction Hepatitis C treated with Ribavirin and interferon. PCR qual neg 11/1999 Impaired cognition Memory loss Palliative care patient Tobacco dependence quit 2019 Vitamin D deficiency Surgical History H/O right knee surgery Status post closed fracture of femur s/p repair Family History Son Diabetes Pancreatitis, acute Grandson No problems noted. Mother , age 95 from DM2 and heart disease Heart disease Diabetes Father , in his early 50s from etohism Alcohol use disorder Sister Colon cancer Granddaughter Substance use disorder Other Cancer Social History Smoking/Tobacco Use Status: Former Tobacco Use Tobacco: How many years used: 52 Second Hand Exposure: No Counseling given: provider counseling Smoking risk assessment performed?: Yes Alcohol Intake: former Counseling given: Yes Drug use: Daily Substance use type: marijuana Counseling given: No Details: stopped drinking 2017, except for rare exceptions quit smoking August 2020 Caregiver/Support person: Yes Household members: family Housing: house Number of Children: 1 number of grandchildren: 3 Communication Needs: Hard of Hearing and Corrective Lenses Education Level: high school Do you need help understanding health information?: Always 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, [employer], 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 Pets and animals: Yes Current gender identity: male What is your relationship status?: How often do you talk on the phone with friends or family?: never How often do you get together with friends or relatives?: twice per week Panel score (0-1 are the most socially isolated patients): 0 What type of physical activity do you participate in: walking and sedentary lifestyle Duration: 15-30 minutes/day Special roslyn needs: No Agree to transfusion: No Seatbelt use: sometimes Helmet use: No Working smoke detector in home: Yes Fire extinguisher in home: Yes Do you feel safe at home: Yes Do you feel safe in your relationship?: Yes Additional Social history: Patient lives with his son, daughter in-law and grandson Patient receives his care at the [place], Dr Albright is his current MD, likes her very much. Has 2 granddaughters from his only biological child, Fred Guerra Nicolle, Sr. Very involved in grandson's life. Doesn't see granddaughters regularly. Son Evert's partner, Rehana, is Fred's primary caregiver. She's been staying home with him. Son has also curtailed his business so he can be with his father. Evert used to live with a caregiver who took his money and neglected his medical needs, according to Evert and Rehana. Exam <Austin Stephenson NP - Last Filed: 08/12/21 15:43> Const General: cooperative, no acute distress and not ill appearing Orientation: alert and awake Resp Effort & Inspection: normal respiratory effort, able to speak in complete sentences and no respiratory distress Cardio Rate: regular rate Rhythm: regular rhythm Pulses: posterior tibial pulses present and dorsalis pedis present Skin General skin exam: no rashes or lesions noted Neuro General: patient alert, patient awake, patient oriented x3, moves all extremities and no focal motor deficits Sensory Exam: no sensory deficits noted Extrem General: normal exam except as noted Right lower extremity: foot Details: tenderness Location: of the great toe Location: at the MTP joint, no edema, vascular exam Details: dorsalis pedis pulse present and normal capillary refill and motor-sensory exam Details: light-touch normal; no abrasion and no laceration Course <Austin Stephenson NP - Last Filed: 08/12/21 15:43> Vital Signs Vital signs: Vital Signs Temperature 36.7 C 08/09/21 15:05 Pulse 81 08/09/21 15:05 Respiratory Rate 18 08/09/21 15:05 Blood Pressure 162/60 H 08/09/21 15:05 Pulse Oximetry 99 08/09/21 15:05 Temperature 36.7 C 08/09/21 15:05 Temperature Source Oral 08/09/21 15:05 Pulse 81 08/09/21 15:05 Respiratory Rate 18 08/09/21 15:05 Respiratory Effort 08/09/21 15:12 Blood Pressure 162/60 H 08/09/21 15:05 Blood Pressure Position Supine 08/09/21 15:05 Pulse Oximetry 99 08/09/21 15:05 Oxygen Delivery Method Room Air 08/09/21 15:05 Oxygen Flow Rate 0 08/09/21 15:05 Pain Level 5 08/09/21 15:05 Sign Out <Austin Stephenson NP - Last Filed: 08/12/21 15:43> Sign Out Data: Sign Out Comment: Patient pending x-ray imaging and labs first suspicion of gout versus occult injury. Last updated by Austin Stephenson NP at 08/09/21 15:38 PAWSS <Austin Stephenson NP - Last Filed: 08/12/21 15:43> Have you Been Recently Intoxicated or Drunk Within the Last 30 days?: No Have you Ever Experienced Previous Episodes of Alcohol Withdrawal?: No Have you ever Experienced Withdrawal Seizures?: No Have you ever Experienced Delirium Tremens(DT)s?: No Have you ever undergone Alcohol Rehabilitation Treatment (i.e, inpt ot outpatient treatment programs)?: No Have you ever Experienced Blackouts?: No Have you ever Combined Alcohol with other Downers within the last 90 days?: No Have you ever Combined Alcohol with any other Substance of Abuse during the last 90 days?: No Positive Blood Alcohol level on Presentation? [PCS.BAL]: No Evidence of Increased Autonomic Activity (i.e. HR>120, tremor, sweating, agitation, nausea)?: No Result: 0 <SHEREE Bloom - Last Filed: 08/09/21 18:12> Result: 0
[2021-08-09 15:30] LABS: Abs Immature Grans 0.02 10^3/uL (0.0-0.06); Absolute Basophil Count 0.06 10^3/uL (0.0-0.2); Absolute Eosinophil Count 0.36 10^3/uL (0.0-0.7); Absolute Lymphocyte Count 2.66 10^3/uL (1.2-3.4); Absolute Monocyte Count 0.66 10^3/uL (0.1-0.8); Absolute Neutrophil Count 5.57 10^3/uL (1.2-6.7); Basophils % 0.6; Eosinophils % 3.9; HCT 40.5 % (40.0-50.0); HGB 13.6 g/dL (13.5-17.5); Immature Grans % 0.2; Lymphocytes % 28.5; MCH 29.6 pg (27.0-33.0); MCHC 33.6 % (32.0-36.0); MCV 88 fL (80-95); MPV 9.2 fL (8.0-11.0); Monocytes % 7.1; Neutrophils % 59.7; Platelet Count 340 10^3/uL (130-400); RDW 14.9 % (11.8-14.1); RDW-SD 48.5 fL; WBC 9.33 10^3/uL (4.4-10.8)
[2021-08-09 15:54] LABS: ALT 17 U/L (16-63); AST 16 U/L (15-37); Albumin 4.1 g/dL (3.4-5.0); Alkaline Phosphatase 141 U/L (46-116); Anion Gap 9.8 mmol/L (3-11); BUN 20 mg/dL (7-18); Bilirubin, Total 0.7 mg/dL (0.2-1.0); CO2 28.2 mmol/L (21.0-32.0); CREATININE 1.6 mg/dL (0.70-1.30); Calcium 9.5 mg/dL (8.5-10.1); Chloride 98 mmol/L (98-107); Estimated GFR 42.82 (mL/min/1.73m2); Glucose 135 mg/dL (74-106); Potassium 3.3 mmol/L (3.5-5.1); Sodium 136 mmol/L (136-145); Total Protein 8.3 g/dL (6.4-8.2); Uric Acid 6.5 mg/dL (3.5-7.2)
[2021-08-09 16:48] VITALS: PULSE 87; RESP 16; O2SAT 96
== END 2021-08-09 16:48 | disposition home or self-care (01) ==
PROVIDERS: Nurse Practitioner Family; Emergency Provider Physician Assistant; PCP Internal Medicine Geriatric Medicine
DX: S92.491A Other fracture of right great toe, initial encounter for closed fracture (principal); X58.XXXA Exposure to other specified factors, initial encounter; E87.6 Hypokalemia
CPT/HCPCS: 29515; 36415; 80053; 99283; 73630; 84550; 85025

== ENCOUNTER 2021-11-01 04:09 | Outpatient (CLI) | payer MEDICARE, SELFPAY ==
[2021-11-01 16:27] LABS: Bilirubin Negative (Negative); Blood Negative (Negative); Clarity Clear (Clear); Glucose Negative (Negative); Ketones Negative (Negative); Leukocyte Esterase Negative (Negative); Nitrite Negative (Negative); Urobilinogen 0.2 EU/dL (Up TO 0.2); pH 6.5 (5-8)
[2021-11-01 16:33] LABS: ALT 12 U/L (16-63); AST 14 U/L (15-37); Albumin 3.5 g/dL (3.4-5.0); Alkaline Phosphatase 174 U/L (46-116); Anion Gap 10.3 mmol/L (3-11); BUN 13 mg/dL (7-18); Bilirubin, Direct 0.1 mg/dL (0.0-0.2); Bilirubin, Total 0.4 mg/dL (0.2-1.0); CO2 24.7 mmol/L (21.0-32.0); CREATININE 1.6 mg/dL (0.70-1.30); Chloride 98 mmol/L (98-107); Estimated GFR 45.78 (mL/min/1.73m2); Glucose 163 mg/dL (74-106); Magnesium 1.9 mg/dL (1.8-2.4); Potassium 3.3 mmol/L (3.5-5.1); Sodium 133 mmol/L (136-145)
[2021-11-01 16:43] LABS: Bacteria Negative HPF (Negative); C & S Indicated? No; Crystals Negative HPF (Negative); Epithelial Cells Negative HPF (Negative); Mucus Negative (Negative); RBC 0-2 HPF (0-2); WBC Negative HPF (0-5)
[2021-11-06 12:28] LABS: Misc Referral (MAYO) See Comments
[2021-11-06 12:29] LABS: Misc Referral (MAYO) See Comments
[2021-11-06 12:31] LABS: Misc Referral (MAYO) See Comments
== END 2021-11-01 04:10 | disposition home or self-care (01) ==
LOC: LBO 04:10
PROVIDERS: PCP Internal Medicine Geriatric Medicine; Visit Provider Internal Medicine Geriatric Medicine
DX: E87.6 Hypokalemia (principal); E03.8 Other specified hypothyroidism
CPT/HCPCS: 36415; 80048; 80076; 82088; 84133; 84300; 81003; 81015; 82436; 83735

== ENCOUNTER 2021-11-06 10:39 | Emergency (ER) | payer MEDICARE, SELFPAY ==
[2021-11-06 10:51] VITALS: BP 144/105; PULSE 82; RESP 16; TEMP 36.5; O2SAT 95
--- NOTE | 2021-11-06 11:30 | DI.US_ITS ---
Exam(s) US UPPER EXTREMITY VENOUS RT EXAM: US UPPER EXTREMITY VENOUS RT CLINICAL HISTORY: swelling TECHNIQUE: GRAYSCALE, COLOR, DOPPLER IMAGING OF THE VENOUS SYSTEM OF THE UPPER EXTREMITY-BILATERAL COMPARISON: US US OR ANESTHESIA from 10/09/2018 FINDINGS: Grayscale, color, and Doppler imaging of the veins of the right upper extremity was performed Basilic vein: Patent. Normal color-flow and normal compression and augmentation properties. Brachial vein(s):Patent. Normal color flow. Normal compression and augmentation properties. Cephalic vein:Patent. Normal color flow. Normal compression and augmentation properties. Axillary vein: Patent. Normal color flow. Normal compression and augmentation properties. Visualized subclavian vein: Patent. No obvious intraluminal thrombus. IMPRESSION: 1. No evidence of venous thrombosis in the right upper extremity. DATA REPOSITORY:
[2021-11-06 12:19] LABS: Abs Immature Grans 0.05 10^3/uL (0.0-0.06); Absolute Basophil Count 0.08 10^3/uL (0.0-0.2); Absolute Eosinophil Count 0.18 10^3/uL (0.0-0.7); Absolute Lymphocyte Count 2.15 10^3/uL (1.2-3.4); Absolute Monocyte Count 0.66 10^3/uL (0.1-0.8); Absolute Neutrophil Count 6.78 10^3/uL (1.2-6.7); Basophils % 0.8; Eosinophils % 1.8; HCT 33.7 % (40.0-50.0); HGB 11.2 g/dL (13.5-17.5); Immature Grans % 0.5; Lymphocytes % 21.7; MCH 28.8 pg (27.0-33.0); MCHC 33.2 % (32.0-36.0); MCV 87 fL (80-95); MPV 9.5 fL (8.0-11.0); Monocytes % 6.7; Neutrophils % 68.5; Platelet Count 319 10^3/uL (130-400); RBC 3.89 10^6/uL (4.36-5.78); RDW 14.7 % (11.8-14.1)
[2021-11-06 12:47] LABS: ALT 13 U/L (16-63); AST 18 U/L (15-37); Albumin 3.2 g/dL (3.4-5.0); Alkaline Phosphatase 151 U/L (46-116); Anion Gap 5.4 mmol/L (3-11); BUN 18 mg/dL (7-18); Bilirubin, Total 0.5 mg/dL (0.2-1.0); CO2 30.6 mmol/L (21.0-32.0); CREATININE 1.5 mg/dL (0.70-1.30); Calcium 8.9 mg/dL (8.5-10.1); Chloride 101 mmol/L (98-107); Estimated GFR 49.47 (mL/min/1.73m2); Glucose 108 mg/dL (74-106); Potassium 3.4 mmol/L (3.5-5.1); Sodium 137 mmol/L (136-145); Total Protein 7.2 g/dL (6.4-8.2)
--- NOTE | 2021-11-06 13:41 | ED.GENADUL_ITS ---
Discharge Plan Disposition Patient Disposition: HOME Condition: Stable Discharge Details Clinical Impression: Localized swelling of right upper extremity Primary Care Provider: Cierra Albright ED Provider: Josephine Chisholm Home Meds and New Rx's Prescriptions: Continued lisinopril 10 mg tablet 10 mg PO DAILY Qty: 90 0RF polyethylene glycol 3350 17 gram/dose powder 17 g PO DAILY PRN (Reason: constipation) Qty: 510 0RF cholecalciferol (vitamin D3) 50 mcg (2,000 unit) capsule 50 mcg PO DAILY Qty: 90 0RF mecobalamin (vitamin B12) 1,000 mcg tablet,disintegrating 1,000 mcg sublingual DAILY Qty: 90 0RF Rx Instructions: place tablet under tongue and allow to dissolve for at least30 secs before swallowing albuterol sulfate 90 mcg/actuation Hfa Aerosol Inhaler 2 puff INHALATION Q6H PRN aspirin 325 mg Tablet 325 mg PO DAILY amlodipine 5 mg Tablet 10 mg PO DAILY Qty: 60 0RF budesonide-formoterol [Symbicort] 160-4.5 mcg/actuation Hfa Aerosol Inhaler 2 puff inhalation BID Qty: 6 1RF acetaminophen 500 mg tablet 500 mg PO Q8H PRN (Reason: pain) Qty: 60 3RF levothyroxine 25 mcg tablet 50 mcg PO DAILY Label Comments: TAKE 1 TABLET BY MOUTH EVERY DAY omeprazole 20 mg Capsule,Delayed Release(Dr/Ec) 20 mg PO DAILY potassium 20 mg Tablet,Chewable 10 mg PO DAILY atorvastatin 20 mg tablet 40 mg PO DAILY guaifenesin 600 mg tablet extended release 12hr 600 mg PO BID famotidine 20 mg Tablet 20 mg PO BID doxazosin 2 mg tablet 2 mg Label Comments: TAKE 1 TABLET BY MOUTH EVERY DAY hydrochlorothiazide 12.5 mg Tablet 12.5 mg PO DAILY metoprolol succinate 100 mg tablet extended release 24 hr 100 mg PO DAILY Rx Instructions: takes with 50 mg tab for dose of 150 mg daily Discharge Instructions Additional Instructions: Please follow-up with your primary care physician in 24 to 48 hours for reassessment Elevate your arm Return with pain, spreading redness, fever, chills, or should he have new or worsening complaints Referrals: Cierra Albright [Primary Care Provider] - Discharge Data Discharge Date/Time-TO BE ENTERED AT DEPARTURE: 11/06/21 14:02 Medical Decision Making Patient is alert and oriented, he declines any complaints other than his right hand being swollen, rings removed Ultrasound and labs do not show evidence of acute abnormality Patient discharged home in stable condition with stable vital Reevaluation in 2 to 3 days recommended Medical Records Medical records reviewed: Yes I reviewed the patient's medical records. Lab Data Lab results reviewed: Yes I reviewed the patient's lab results. HPI General Date/Time Provider Initiated Documentation: 11/06/21 11:32 . HPI Narrative: This patient presents with right arm swelling that started with burning. Patient then noted that it was more swelling than the left. Patient denies any associated pain complaints. He states that he had blood [facility] at [facility] a week ago and is wondering if this is having symptoms. He denies any falls or injuries. He is unsure if or not he reflects on the room. He denies any associated pain. He denies any chest pain or shortness of breath. He denies any current vision change or weakness. He denies any swelling to his legs or weight gain. He denies any orthopnea. Related Data Home Medications Medication Instructions Recorded Confirmed albuterol sulfate 90 mcg/actuation 2 puff inhalation Q6H PRN 03/05/18 11/06/21 aerosol inhaler aspirin 325 mg tablet 325 mg PO DAILY 09/18/18 11/06/21 amlodipine 5 mg tablet 10 mg PO DAILY #60 tabs 09/20/18 08/09/21 budesonide-formoterol HFA 160 2 puff inhalation BID #6 grams 09/20/18 11/06/21 mcg-4.5 mcg/actuation aerosol inhaler (Symbicort) acetaminophen 500 mg tablet 500 mg PO Q8H PRN pain #60 tabs 10/09/18 08/09/21 cholecalciferol (vitamin D3) 50 50 mcg PO DAILY #90 caps 11/05/20 08/09/21 mcg (2,000 unit) capsule lisinopril 10 mg tablet 10 mg PO DAILY #90 tabs 11/05/20 08/09/21 mecobalamin (vitamin B12) 1,000 1,000 mcg sublingual DAILY #90 tabs 11/05/20 08/09/21 mcg disintegrating tablet,sublingual polyethylene glycol 3350 17 17 g PO DAILY PRN constipation 11/05/20 08/09/21 gram/dose oral powder #510 grams doxazosin 2 mg tablet 2 mg 01/29/21 famotidine 20 mg tablet 20 mg PO BID 01/29/21 08/09/21 hydrochlorothiazide 12.5 mg tablet 12.5 mg PO DAILY 01/29/21 08/09/21 metoprolol succinate 100 mg 100 mg PO DAILY 01/29/21 08/09/21 tablet,extended release 24 hr atorvastatin 20 mg tablet 40 mg PO DAILY 11/06/21 guaifenesin 600 mg tablet, 600 mg PO BID 11/06/21 11/06/21 extended release 12 hr levothyroxine 25 mcg tablet 50 mcg PO DAILY 11/06/21 11/06/21 omeprazole 20 mg capsule,delayed 20 mg PO DAILY 11/06/21 11/06/21 release potassium 20 mg chewable tablet 10 mg PO DAILY 11/06/21 11/06/21 Previous Rx's Medication Instructions Recorded amlodipine 5 mg tablet 10 mg PO DAILY #60 tabs 09/20/18 budesonide-formoterol HFA 160 2 puff inhalation BID #6 grams 09/20/18 mcg-4.5 mcg/actuation aerosol inhaler (Symbicort) acetaminophen 500 mg tablet 500 mg PO Q8H PRN pain #60 tabs 10/09/18 cholecalciferol (vitamin D3) 50 50 mcg PO DAILY #90 caps 11/05/20 mcg (2,000 unit) capsule lisinopril 10 mg tablet 10 mg PO DAILY #90 tabs 11/05/20 mecobalamin (vitamin B12) 1,000 1,000 mcg sublingual DAILY #90 tabs 11/05/20 mcg disintegrating tablet,sublingual polyethylene glycol 3350 17 17 g PO DAILY PRN constipation 11/05/20 gram/dose oral powder #510 grams Allergies Allergy/AdvReac Type Severity Reaction Status Date / Time clopidogrel [From Plavix] Allergy Unknown Unverified 11/08/21 19:56 simvastatin Allergy Unknown Unverified 11/08/21 19:56 General Stated Complaint: Cellulitis JUSTINE: 3 Review of Systems All systems reviewed & are unremarkable except as noted in HPI and below PFSH All Active Problems (Updated 11/06/21 @ 13:44 by SHEREE Bloom) Localized swelling of right upper extremity (Acute) Syncope (Chronic) Acute kidney injury (Acute) Goals of care, counseling/discussion (Acute) DNI (do not intubate) (Acute) DNR (do not resuscitate) (Acute) POLST (Physician Orders for Life-Sustaining Treatment) (Acute) DNR/DNI signed by pt and son(DPOA) 11/02/20 Retinal hemorrhage, right eye (Acute) 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) right hand/arm, following postop stroke Chronic post-traumatic stress disorder (PTSD) after combat (Chronic) apparent when delirious, hospitalized, stressed physically or mentally History of delusional disorder (Acute) when hospitalized, mentation deteriorates gets paranoid Postoperative stroke (Chronic) August 2020, following left CEA History of left-sided carotid endarterectomy (Acute) Left-sided carotid artery disease (Acute) 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) [facility] History of traumatic brain injury (Acute) Vascular dementia (Acute) Alcoholic dementia (Acute) History of smoking (Acute) Closed left radial fracture (Acute) s/p ORIF L distal radius 10/09/2018 Peripheral vascular disease of extremity with claudication (Acute) Hypertension (Chronic) COPD (chronic obstructive pulmonary disease) (Chronic) Diverticulitis large intestine (Acute) Pneumothorax, left (Acute) Left rib fracture (Acute) Medical History Abnormal gait Alcohol abuse Cataract Coronary artery disease Depression Erectile dysfunction Hepatitis C treated with Ribavirin and interferon. PCR qual neg 11/1999 Impaired cognition Memory loss Palliative care patient Tobacco dependence quit 2019 Vitamin D deficiency Surgical History H/O right knee surgery Status post closed fracture of femur s/p repair Family History Son Diabetes Pancreatitis, acute Grandson No problems noted. Mother , age 95 from DM2 and heart disease Heart disease Diabetes Father , in his early 50s from etohism Alcohol use disorder Sister Colon cancer Granddaughter Substance use disorder Other Cancer Social History Smoking/Tobacco Use Status: Former Tobacco Use Tobacco: How many years used: 52 Second Hand Exposure: No Counseling given: provider counseling Smoking risk assessment performed?: Yes Alcohol Intake: former Counseling given: Yes Drug use: Daily Substance use type: marijuana Counseling given: No Details: stopped drinking 2017, except for rare exceptions quit smoking August 2020 Caregiver/Support person: Yes Household members: family Housing: house Number of Children: 1 number of grandchildren: 3 Communication Needs: Hard of Hearing and Corrective Lenses Education Level: high school Do you need help understanding health information?: Always 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[employer], [employer], 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 Pets and animals: Yes Current gender identity: male What is your relationship status?: How often do you talk on the phone with friends or family?: never How often do you get together with friends or relatives?: twice per week Panel score (0-1 are the most socially isolated patients): 0 What type of physical activity do you participate in: walking and sedentary lifestyle Duration: 15-30 minutes/day Special roslyn needs: No Agree to transfusion: No Seatbelt use: sometimes Helmet use: No Working smoke detector in home: Yes Fire extinguisher in home: Yes Do you feel safe at home: Yes Do you feel safe in your relationship?: Yes Additional Social history: Patient lives with his son, daughter in-law and grandson [facility], Dr Albright is his current MD, likes her very much. Has 2 granddaughters from his only biological child, Fred Guerra Nicolle, Sr. Very involved in grandson's life. Doesn't see granddaughters regularly. Son Evert's partner, Rehana, is Fred's primary caregiver. She's been staying home with him. Son has also curtailed his business so he can be with his father. Evert used to live with a caregiver who took his money and neglected his medical needs, according to Evert and Rehana. Exam Const General: cooperative and comfortable HENMT Head: normal to inspection Eyes Pupils: PERRL Resp Effort & Inspection: normal respiratory effort Auscultation: clear to auscultation bilaterally Cardio Rate: regular rate Skin General skin exam: no rashes or lesions noted Neuro General: patient alert and patient oriented x3 Extrem Other: Mild right upper extremity swelling, no tenderness, distal pulses intact, no crepitus Course Vital Signs Vital signs: Vital Signs Temperature 36.5 C 11/06/21 10:51 Pulse 82 11/06/21 10:51 Respiratory Rate 16 11/06/21 10:51 Blood Pressure 144/105 H 11/06/21 10:51 Pulse Oximetry 95 11/06/21 10:51 Temperature 36.5 C 11/06/21 10:51 Pulse 82 11/06/21 10:51 Respiratory Rate 16 11/06/21 10:51 Respiratory Effort 11/06/21 11:00 Blood Pressure 144/105 H 11/06/21 10:51 Pulse Oximetry 95 11/06/21 10:51 Oxygen Delivery Method Room Air 11/06/21 10:51 Oxygen Flow Rate 0 11/06/21 10:51 Lab/Test Results Lab/Test Results: Laboratory Tests Range/Units 11/06/21 11/06/21 12:00 12:00 WBC (4.4-10.8) 10^3/uL 9.90 RBC (4.36-5.78) 10^6/uL 3.89 L Hgb (13.5-17.5) g/dL 11.2 L Hct (40.0-50.0) % 33.7 L MCV (80-95) fL 87 MCH (27.0-33.0) pg 28.8 MCHC (32.0-36.0) % 33.2 RDW (11.8-14.1) % 14.7 H Plt Count (130-400) 10^3/uL 319 MPV (8.0-11.0) fL 9.5 Immature Gran % 0.5 Neutrophils % 68.5 Lymphocytes % 21.7 Monocytes % 6.7 Eosinophils % 1.8 Basophils % 0.8 Nucleated RBC % (0.0-0.3) % 0.0 Absolute Neutrophils (1.2-6.7) 10^3/uL 6.78 H Absolute Lymphocytes (1.2-3.4) 10^3/uL 2.15 Absolute Monocytes (0.1-0.8) 10^3/uL 0.66 Absolute Eosinophils (0.0-0.7) 10^3/uL 0.18 Absolute Basophils (0.0-0.2) 10^3/uL 0.08 Sodium (136-145) mmol/L 137 Potassium (3.5-5.1) mmol/L 3.4 L Chloride (98-107) mmol/L 101 Carbon Dioxide (21.0-32.0) mmol/L 30.6 Anion Gap (3-11) mmol/L 5.4 BUN (7-18) mg/dL 18 Creatinine (0.70-1.30) mg/dL 1.5 H Est GFR (CKD-EPI 2020) (mL/min/1.73m2) 49.47 Glucose (74-106) mg/dL 108 H Calcium (8.5-10.1) mg/dL 8.9 Total Bilirubin (0.2-1.0) mg/dL 0.5 AST (15-37) U/L 18 ALT (16-63) U/L 13 L Alkaline Phosphatase (46-116) U/L 151 H Total Protein (6.4-8.2) g/dL 7.2 Albumin (3.4-5.0) g/dL 3.2 L
[2021-11-06 13:53] VITALS: BP 144/105; PULSE 82; RESP 16; TEMP 36.5; O2SAT 95
[2021-11-08 23:40] LABS: Aldosterone, P <4.0 ng/dL (<=21)
[2021-11-09 16:14] LABS: Renin Activity, Plasma 3.3 ng/mL/h
== END 2021-11-06 14:02 | disposition home or self-care (01) ==
PROVIDERS: Emergency Provider Physician Assistant; PCP Internal Medicine Geriatric Medicine
DX: R22.31 Localized swelling, mass and lump, right upper limb (principal); Z87.891 Personal history of nicotine dependence
CPT/HCPCS: 80053; 82088; 99284; 84244; 85025; 93971; 99282

== ENCOUNTER 2021-11-08 19:29 | Emergency (ER) | payer MEDICARE, SELFPAY ==
[2021-11-08 19:52] VITALS: PULSE 86; RESP 20; TEMP 37.2; O2SAT 95
--- NOTE | 2021-11-08 20:15 | DI.RAD_ITS ---
Exam(s) XR PORTABLE CHEST AP EXAM: XR PORTABLE CHEST AP CLINICAL HISTORY: cough TECHNIQUE: 2D digital imaging was performed. COMPARISON: CR,XR XR CHEST 1V IN DI DEPT from 01/29/2021 CR,XR XR CHEST 1V IN DI DEPT from 02/17/2021 FINDINGS: Exam is limited by poor pulmonary inflation. There is again noted to be elevation of the right diaph ragm. The heart size is normal. There is calcification at the aortic arch. There are old left rib fractures. No infiltrate or effusion is seen. IMPRESSION: No acute findings. DATA REPOSITORY: RADIATION DOSE DELIVERED:
--- NOTE | 2021-11-08 20:19 | ED.GENADUL_ITS ---
Discharge Plan Disposition Patient Disposition: HOME Condition: Stable Discharge Details Clinical Impression: COVID Primary Care Provider: Cierra Albright ED Provider: Ariel Mac Home Meds and New Rx's Prescriptions: Continued lisinopril 10 mg tablet 10 mg PO DAILY Qty: 90 0RF polyethylene glycol 3350 17 gram/dose powder 17 g PO DAILY PRN (Reason: constipation) Qty: 510 0RF cholecalciferol (vitamin D3) 50 mcg (2,000 unit) capsule 50 mcg PO DAILY Qty: 90 0RF mecobalamin (vitamin B12) 1,000 mcg tablet,disintegrating 1,000 mcg sublingual DAILY Qty: 90 0RF Rx Instructions: place tablet under tongue and allow to dissolve for at least30 secs before swallowing albuterol sulfate 90 mcg/actuation Hfa Aerosol Inhaler 2 puff INHALATION Q6H PRN aspirin 325 mg Tablet 325 mg PO DAILY amlodipine 5 mg Tablet 10 mg PO DAILY Qty: 60 0RF budesonide-formoterol [Symbicort] 160-4.5 mcg/actuation Hfa Aerosol Inhaler 2 puff inhalation BID Qty: 6 1RF acetaminophen 500 mg tablet 500 mg PO Q8H PRN (Reason: pain) Qty: 60 3RF levothyroxine 25 mcg tablet 50 mcg PO DAILY Label Comments: TAKE 1 TABLET BY MOUTH EVERY DAY omeprazole 20 mg Capsule,Delayed Release(Dr/Ec) 20 mg PO DAILY potassium 20 mg Tablet,Chewable 10 mg PO DAILY atorvastatin 20 mg tablet 40 mg PO DAILY guaifenesin 600 mg tablet extended release 12hr 600 mg PO BID famotidine 20 mg Tablet 20 mg PO BID doxazosin 2 mg tablet 2 mg Label Comments: TAKE 1 TABLET BY MOUTH EVERY DAY hydrochlorothiazide 12.5 mg Tablet 12.5 mg PO DAILY metoprolol succinate 100 mg tablet extended release 24 hr 100 mg PO DAILY Rx Instructions: takes with 50 mg tab for dose of 150 mg daily Discharge Instructions Instructions: COVID-19 (Coronavirus Disease 2019) (ED) Additional Instructions: if you have difficulty breathing, feel more ill or severe pain return to the emergency department follow up with your primary care provider in 1-2 weeks Stand Alone Forms: POSITIVE COVID-19/NO TESTING Medical Decision Making 70 yo male with hx of copd, dementia, dnr/dni, who is not vaccinated for covid, who comes in with his son stating multiple members have had covid recently and been around the patient and today the patient has tested positive twice for covid on at home tests. He has had a cough otherwise has felt well, has had an intermittent mild headache and denies headache now. HE is in no distress on exam speaking in full sentences. He has clear lungs, soft abdomen, no meninismus, no leg swelling or calf tenderness, o2 saturation on room air is 95%. Given the positive home test and his risk factors discussed with pt and his son and they agree to having monoclonal antibodies. Given his well appearance do not feel he requires labs, will obtain cxr to evaluate for infiltrate. xray shows no acute findings, does have nodule that him and son were made aware of and will discuss with pcp. tolerated infusion of MAB well, no reactions and stable vitals and requesting d/c. Advised to isolate and return precautions given Differential Diagnosis Differential Diagnosis: covid, pneumonia Imaging Data Radiologic Study: Attestation: I personally reviewed and interpreted this imaging study as follows: Imaging: X-Ray Radiologist's impression: IMPRESSION: Grossly stable radiographic appearance to the chest Questionable nodule in the left upper lobe versus summation shadow of left 6th rib and scapula. Consider nonurgent chest CT HPI General Mode of arrival: ambulatory . Date/Time Provider Initiated Documentation: 11/08/21 19:56 . Limitations to Documentation: no limitations . Information obtained by: patient . History of Present Illness 70 year old M presents to the emergency department with the chief complaint of cough, described as moderate, Patient started experiencing this day(s) (2) and it has been intermittent. No relieving factors improve symptom(s), No exacerbating factors reported . Patient did receive the following treatments prior to arrival, none Related Data Home Medications Medication Instructions Recorded Confirmed albuterol sulfate 90 mcg/actuation 2 puff inhalation Q6H PRN 03/05/18 11/06/21 aerosol inhaler aspirin 325 mg tablet 325 mg PO DAILY 09/18/18 11/06/21 amlodipine 5 mg tablet 10 mg PO DAILY #60 tabs 09/20/18 08/09/21 budesonide-formoterol HFA 160 2 puff inhalation BID #6 grams 09/20/18 11/06/21 mcg-4.5 mcg/actuation aerosol inhaler (Symbicort) acetaminophen 500 mg tablet 500 mg PO Q8H PRN pain #60 tabs 10/09/18 08/09/21 cholecalciferol (vitamin D3) 50 50 mcg PO DAILY #90 caps 11/05/20 08/09/21 mcg (2,000 unit) capsule lisinopril 10 mg tablet 10 mg PO DAILY #90 tabs 11/05/20 08/09/21 mecobalamin (vitamin B12) 1,000 1,000 mcg sublingual DAILY #90 tabs 11/05/20 08/09/21 mcg disintegrating tablet,sublingual polyethylene glycol 3350 17 17 g PO DAILY PRN constipation 11/05/20 08/09/21 gram/dose oral powder #510 grams doxazosin 2 mg tablet 2 mg 01/29/21 famotidine 20 mg tablet 20 mg PO BID 01/29/21 08/09/21 hydrochlorothiazide 12.5 mg tablet 12.5 mg PO DAILY 01/29/21 08/09/21 metoprolol succinate 100 mg 100 mg PO DAILY 01/29/21 08/09/21 tablet,extended release 24 hr atorvastatin 20 mg tablet 40 mg PO DAILY 11/06/21 guaifenesin 600 mg tablet, 600 mg PO BID 11/06/21 11/06/21 extended release 12 hr levothyroxine 25 mcg tablet 50 mcg PO DAILY 11/06/21 11/06/21 omeprazole 20 mg capsule,delayed 20 mg PO DAILY 11/06/21 11/06/21 release potassium 20 mg chewable tablet 10 mg PO DAILY 11/06/21 11/06/21 Previous Rx's Medication Instructions Recorded amlodipine 5 mg tablet 10 mg PO DAILY #60 tabs 09/20/18 budesonide-formoterol HFA 160 2 puff inhalation BID #6 grams 09/20/18 mcg-4.5 mcg/actuation aerosol inhaler (Symbicort) acetaminophen 500 mg tablet 500 mg PO Q8H PRN pain #60 tabs 10/09/18 cholecalciferol (vitamin D3) 50 50 mcg PO DAILY #90 caps 11/05/20 mcg (2,000 unit) capsule lisinopril 10 mg tablet 10 mg PO DAILY #90 tabs 11/05/20 mecobalamin (vitamin B12) 1,000 1,000 mcg sublingual DAILY #90 tabs 11/05/20 mcg disintegrating tablet,sublingual polyethylene glycol 3350 17 17 g PO DAILY PRN constipation 11/05/20 gram/dose oral powder #510 grams Allergies Allergy/AdvReac Type Severity Reaction Status Date / Time clopidogrel [From Plavix] Allergy Unknown Unverified 11/08/21 19:56 simvastatin Allergy Unknown Unverified 11/08/21 19:56 General Stated Complaint: RespSymp JUSTINE: 3 Review of Systems All systems reviewed & are unremarkable except as noted in HPI and below Constitutional Constitutional: Denies chills, Denies fever(s) and Denies weakness Cardiovascular Cardiovascular: Denies chest pain and Denies dyspnea Respiratory Respiratory: Denies dyspnea Gastrointestinal Gastrointestinal: Denies abdominal pain, Denies nausea and Denies vomiting Integumentary/Breasts Skin/Breast: Denies rash Neurologic Neurologic: Denies weakness [facility] All Active Problems (Updated 11/08/21 @ 22:01 by Ariel Mac MD) Localized swelling of right upper extremity (Acute) COVID (Acute) Syncope (Chronic) Acute kidney injury (Acute) Goals of care, counseling/discussion (Acute) DNI (do not intubate) (Acute) DNR (do not resuscitate) (Acute) POLST (Physician Orders for Life-Sustaining Treatment) (Acute) DNR/DNI signed by pt and son(DPOA) 11/02/20 Retinal hemorrhage, right eye (Acute) 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) right hand/arm, following postop stroke Chronic post-traumatic stress disorder (PTSD) after combat (Chronic) apparent when delirious, hospitalized, stressed physically or mentally History of delusional disorder (Acute) when hospitalized, mentation deteriorates gets paranoid Postoperative stroke (Chronic) August 2020, following left CEA History of left-sided carotid endarterectomy (Acute) Left-sided carotid artery disease (Acute) 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) [facility] History of traumatic brain injury (Acute) Vascular dementia (Acute) Alcoholic dementia (Acute) History of smoking (Acute) Closed left radial fracture (Acute) s/p ORIF L distal radius 10/09/2018 Peripheral vascular disease of extremity with claudication (Acute) Hypertension (Chronic) COPD (chronic obstructive pulmonary disease) (Chronic) Diverticulitis large intestine (Acute) Pneumothorax, left (Acute) Left rib fracture (Acute) Medical History Abnormal gait Alcohol abuse Cataract Coronary artery disease Depression Erectile dysfunction Hepatitis C treated with Ribavirin and interferon. PCR qual neg 11/1999 Impaired cognition Memory loss Palliative care patient Tobacco dependence quit 2019 Vitamin D deficiency Surgical History H/O right knee surgery Status post closed fracture of femur s/p repair Family History Son Diabetes Pancreatitis, acute Grandson No problems noted. Mother , age 95 from DM2 and heart disease Heart disease Diabetes Father , in his early 50s from etohism Alcohol use disorder Sister Colon cancer Granddaughter Substance use disorder Other Cancer Social History Smoking/Tobacco Use Status: Former Tobacco Use Tobacco: How many years used: 52 Second Hand Exposure: No Counseling given: provider counseling Smoking risk assessment performed?: Yes Alcohol Intake: former Counseling given: Yes Drug use: Daily Substance use type: marijuana Counseling given: No Details: stopped drinking 2017, except for rare exceptions quit smoking August 2020 Caregiver/Support person: Yes Household members: family Housing: house Number of Children: 1 number of grandchildren: 3 Communication Needs: Hard of Hearing and Corrective Lenses Education Level: high school Do you need help understanding health information?: Always 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, [employer], 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 Pets and animals: Yes Current gender identity: male What is your relationship status?: How often do you talk on the phone with friends or family?: never How often do you get together with friends or relatives?: twice per week Panel score (0-1 are the most socially isolated patients): 0 What type of physical activity do you participate in: walking and sedentary lifestyle Duration: 15-30 minutes/day Special roslyn needs: No Agree to transfusion: No Seatbelt use: sometimes Helmet use: No Working smoke detector in home: Yes Fire extinguisher in home: Yes Do you feel safe at home: Yes Do you feel safe in your relationship?: Yes Additional Social history: Patient lives with his son, daughter in-law and grandson [facility], Dr Albright is his current MD, likes her very much. Has 2 granddaughters from his only biological child, Fred Guerra Nicolle, Sr. Very involved in grandson's life. Doesn't see granddaughters regularly. Son Evert's partner, Rehana, is Fred's primary caregiver. She's been staying home with him. Son has also curtailed his business so he can be with his father. Evert used to live with a caregiver who took his money and neglected his medical needs, according to Evert and Rehana. Exam Const General: no acute distress Orientation: alert HENMS Head: normal to inspection Ears: external ears normal General nose exam: external nose normal Mouth: moist mucous membranes Eyes General: appearance normal, both eyes and all related structures Neck Neck: normal visual inspection Resp Effort & Inspection: normal respiratory effort and able to speak in complete sentences Cardio Rate: regular rate Skin General skin exam: no rashes or lesions noted Neuro General: patient alert Extrem General: normal to inspection Psych Mental Status: mental status grossly normal Course Vital Signs Vital signs: Vital Signs Temperature 37.2 C 11/08/21 19:52 Pulse 86 11/08/21 19:52 Respiratory Rate 20 11/08/21 19:52 Pulse Oximetry 95 11/08/21 19:52 Temperature 37.2 C 11/08/21 19:52 Pulse 86 11/08/21 19:52 Respiratory Rate 20 11/08/21 19:52 Respiratory Effort 11/08/21 19:56 Pulse Oximetry 95 11/08/21 19:52 Pain Level 0 11/08/21 19:52
--- NOTE | 2021-11-08 21:03 | DI.VRAD_ITS ---
PROCEDURE INFORMATION: Exam: XR Chest Exam date and time: 11/08/2021 8:26 PM Age: 70 years old Clinical indication: Cough TECHNIQUE: Imaging protocol: Radiologic exam of the chest. Views: 1 view. COMPARISON: XR CHEST 1V IN DI DEPT 02/17/2021 10:37 PM FINDINGS: Limited due to positioning Lungs: Question left upper lobe nodule versus summation shadow overlying the left 6th rib and scapula. Elevated right hemidiaphragm and low lung volumes are grossly stable Pleural spaces: No pleural effusion. No pneumothorax. Heart/Mediastinum: Grossly stable. Bones/joints: Grossly stable chronic left-sided rib fractures. Gaseous distention in the right upper quadrant IMPRESSION: Grossly stable radiographic appearance to the chest Questionable nodule in the left upper lobe versus summation shadow of left 6th rib and scapula. Consider nonurgent chest CT Dictated and Authenticated by: Jass Torres MD. Ordering:WILBERTO George MD
== END 2021-11-08 22:20 | disposition home or self-care (01) ==
PROVIDERS: Emergency Provider Emergency Medicine; PCP Internal Medicine Geriatric Medicine
DX: U07.1 COVID-19 (principal); J44.9 Chronic obstructive pulmonary disease, unspecified; F03.90 Unspecified dementia, unspecified severity, without behavioral disturbance, psychotic disturbance, mood disturbance, and anxiety; I25.10 Atherosclerotic heart disease of native coronary artery without angina pectoris; Z66 Do not resuscitate; Z87.891 Personal history of nicotine dependence; Z79.51 Long term (current) use of inhaled steroids; Z79.82 Long term (current) use of aspirin
CPT/HCPCS: 87635; 94640; 96365; 96366; 96368; 96372; 96375; 99284; Q0222; 71045

== ENCOUNTER 2021-11-23 01:37 | Outpatient (CLI) | payer MEDICARE, SELFPAY ==
[2021-11-23 12:25] LABS: Anion Gap 2.8 mmol/L (3-11); BUN 28 mg/dL (7-18); CO2 28.2 mmol/L (21.0-32.0); CREATININE 1.7 mg/dL (0.70-1.30); Calcium 9.2 mg/dL (8.5-10.1); Chloride 96 mmol/L (98-107); Glucose 131 mg/dL (74-106); Sodium 127 mmol/L (136-145); TSH 2.25 uIU/mL (0.36-3.74)
[2021-11-23 13:24] LABS: Potassium 2.8 mmol/L (3.5-5.1)
== END 2021-11-23 01:38 | disposition home or self-care (01) ==
LOC: LBO 01:37
PROVIDERS: PCP Internal Medicine Geriatric Medicine; Visit Provider Internal Medicine Geriatric Medicine
DX: E03.9 Hypothyroidism, unspecified (principal)
CPT/HCPCS: 36415; 80048; 84443

== ENCOUNTER 2021-11-23 15:29 | Emergency (ER) | payer OTHER, SELFPAY ==
[2021-11-23 15:37] VITALS: BP 141/77; PULSE 69; RESP 20; TEMP 36.7; O2SAT 96
--- NOTE | 2021-11-23 15:45 | RT.EKG_ITS ---
APPROVED REPORT Exam: Resting ECG Reason for Exam: low potassium Patient Location: E HR:66 bpm ECG Measurements Heart Rate 66 AXIS AK 229 P 72 QRSd 92 QRS 20 QT 425 T 59 QTc 446 Conclusion Sinus rhythm...normal P axis, V-rate 60- 99 Prolonged AK interval...AK >220, V-rate 50- 90 Consider anteroseptal infarct...Q >30mS, dimin R, V1-V2
[2021-11-23] MEDS: Potassium Chloride 20 MEQ TABCR 40 MEQ PO (16:00)
--- NOTE | 2021-11-23 16:02 | W.ED.GENAD ---
Discharge Plan Disposition Patient Disposition: HOME Condition: Stable Discharge Details Clinical Impression: Hypokalemia Primary Care Provider: Cierra Albright ED Provider: Ariel Mac Home Meds and New Rx's Prescriptions: Continued polyethylene glycol 3350 17 gram/dose powder 17 g PO DAILY PRN (Reason: constipation) Qty: 510 0RF albuterol sulfate 90 mcg/actuation Hfa Aerosol Inhaler 2 puff INHALATION Q6H PRN aspirin 325 mg Tablet 325 mg PO DAILY amlodipine 5 mg Tablet 10 mg PO DAILY Qty: 60 0RF budesonide-formoterol [Symbicort] 160-4.5 mcg/actuation Hfa Aerosol Inhaler 2 puff inhalation BID Qty: 6 1RF acetaminophen 500 mg tablet 500 mg PO Q8H PRN (Reason: pain) Qty: 60 3RF levothyroxine 25 mcg tablet 50 mcg PO DAILY Label Comments: TAKE 1 TABLET BY MOUTH EVERY DAY omeprazole 20 mg Capsule,Delayed Release(Dr/Ec) 20 mg PO DAILY atorvastatin 20 mg tablet 40 mg PO DAILY guaifenesin 600 mg tablet extended release 12hr 600 mg PO BID famotidine 20 mg Tablet 20 mg PO BID metoprolol succinate 100 mg tablet extended release 24 hr 100 mg PO DAILY Rx Instructions: takes with 50 mg tab for dose of 150 mg daily Discharge Instructions Instructions: Hypokalemia (ED) Additional Instructions: his sodium on check in the emergency department was normal and his potassium was 3.4, which is essentially normal follow up with his primary care provider as needed if he feels more ill, has difficulty breathing or severe pain return to the emergency department Medical Decision Making 71 yo male with hx of copd, smokes marijuana, htn, pvd, had covid approximately 2 weeks ago, who comes in with cc of low potassium and sodium. He has had low potassium and sodium per his daughter in law who is his jinrikisha driver for quite some time. [facility] and his sodium was 127 and k was 2.8 so came here. Daughter in law states over the past few weeks he has had some brief episodes of confusion but is not more frequent then baseline. He has not had any fevers, chills, chest pain, n/v. He arrives with a normal gait, denies any pain and has no complaints, no focal deficits. He knows his name and that he is in an ED but doesn't know the year. Suspect chronic nutritional deficiency, will provide oral potassium and recheck potassium level. na now normal and k 3.4, doubt this was all from his oral potassium, suspect either lab error or corrected with his lunch, apparently had pizza. He is at his baseline, will d/c and have him f/u with pcp, return precautions given Differential Diagnosis Differential Diagnosis: hyponatremia, hypokalemia Lab Data Lab results reviewed: Yes I reviewed the patient's lab results. ECG Data Attestation: I personally reviewed and interpreted this ECG (s) as follows: Prior ECG tracings: available for review Interpretation: sinus rhythm, pr 229, no acute st t wave ischemic findings HPI General Mode of arrival: ambulatory. Date/Time Provider Initiated Documentation: 11/23/21 15:30. Information obtained by: family. History of Present Illness 71 year old M presents to the emergency department with the chief complaint of low potassium and sodium, described as moderate, Patient started experiencing this day(s) (1) and it has been constant. No relieving factors improve symptom(s), No exacerbating factors reported . Patient did receive the following treatments prior to arrival, none Related Data Home Medications Medication Instructions Recorded Confirmed albuterol sulfate 90 mcg/actuation 2 puff inhalation Q6H PRN 03/05/18 11/23/21 aerosol inhaler aspirin 325 mg tablet 325 mg PO DAILY 09/18/18 11/23/21 amlodipine 5 mg tablet 10 mg PO DAILY #60 tabs 09/20/18 11/23/21 budesonide-formoterol HFA 160 2 puff inhalation BID #6 grams 09/20/18 11/23/21 mcg-4.5 mcg/actuation aerosol inhaler (Symbicort) acetaminophen 500 mg tablet 500 mg PO Q8H PRN pain #60 tabs 10/09/18 11/23/21 polyethylene glycol 3350 17 17 g PO DAILY PRN constipation 11/05/20 11/23/21 gram/dose oral powder #510 grams famotidine 20 mg tablet 20 mg PO BID 01/29/21 11/23/21 metoprolol succinate 100 mg 100 mg PO DAILY 01/29/21 11/23/21 tablet,extended release 24 hr atorvastatin 20 mg tablet 40 mg PO DAILY 11/06/21 11/23/21 guaifenesin 600 mg tablet, 600 mg PO BID 11/06/21 11/06/21 extended release 12 hr levothyroxine 25 mcg tablet 50 mcg PO DAILY 11/06/21 11/23/21 omeprazole 20 mg capsule,delayed 20 mg PO DAILY 11/06/21 11/23/21 release Previous Rx's Medication Instructions Recorded amlodipine 5 mg tablet 10 mg PO DAILY #60 tabs 09/20/18 budesonide-formoterol HFA 160 2 puff inhalation BID #6 grams 09/20/18 mcg-4.5 mcg/actuation aerosol inhaler (Symbicort) acetaminophen 500 mg tablet 500 mg PO Q8H PRN pain #60 tabs 10/09/18 polyethylene glycol 3350 17 17 g PO DAILY PRN constipation 11/05/20 gram/dose oral powder #510 grams Allergies Allergy/AdvReac Type Severity Reaction Status Date / Time clopidogrel [From Plavix] Allergy Unknown Unverified 11/08/21 19:56 simvastatin Allergy Unknown Unverified 11/08/21 19:56 General Stated Complaint: GenMedical JUSTINE: 3 Review of Systems All systems reviewed & are unremarkable except as noted in HPI and below Constitutional Constitutional: Denies chills, Denies fever(s) and Denies weakness Cardiovascular Cardiovascular: Denies chest pain and Denies dyspnea Respiratory Respiratory: Denies cough and Denies dyspnea Gastrointestinal Gastrointestinal: Denies abdominal pain, Denies nausea and Denies vomiting Integumentary/Breasts Skin/Breast: Denies rash Neurologic Neurologic: Denies weakness PFSH All Active Problems (Updated 11/23/21 @ 17:16 by Ariel Mac MD) Localized swelling of right upper extremity (Acute) COVID (Acute) Hypokalemia (Acute) Syncope (Chronic) Acute kidney injury (Acute) Goals of care, counseling/discussion (Acute) DNI (do not intubate) (Acute) DNR (do not resuscitate) (Acute) POLST (Physician Orders for Life-Sustaining Treatment) (Acute) DNR/DNI signed by pt and son(DPOA) 11/02/20 Retinal hemorrhage, right eye (Acute) 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) right hand/arm, following postop stroke Chronic post-traumatic stress disorder (PTSD) after combat (Chronic) apparent when delirious, hospitalized, stressed physically or mentally History of delusional disorder (Acute) when hospitalized, mentation deteriorates gets paranoid Postoperative stroke (Chronic) August 2020, following left CEA History of left-sided carotid endarterectomy (Acute) Left-sided carotid artery disease (Acute) 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) [facility] History of traumatic brain injury (Acute) Vascular dementia (Acute) Alcoholic dementia (Acute) History of smoking (Acute) Closed left radial fracture (Acute) s/p ORIF L distal radius 10/09/2018 Peripheral vascular disease of extremity with claudication (Acute) Hypertension (Chronic) COPD (chronic obstructive pulmonary disease) (Chronic) Diverticulitis large intestine (Acute) Pneumothorax, left (Acute) Left rib fracture (Acute) Medical History Abnormal gait Alcohol abuse Cataract Coronary artery disease Depression Erectile dysfunction Hepatitis C treated with Ribavirin and interferon. PCR qual neg 11/1999 Impaired cognition Memory loss Palliative care patient Tobacco dependence quit 2019 Vitamin D deficiency Surgical History H/O right knee surgery Status post closed fracture of femur s/p repair Family History Son Diabetes Pancreatitis, acute Grandson No problems noted. Mother , age 95 from DM2 and heart disease Heart disease Diabetes Father , in his early 50s from etohism Alcohol use disorder Sister Colon cancer Granddaughter Substance use disorder Other Cancer Social History Smoking/Tobacco Use Status: Former Tobacco Use Tobacco: How many years used: 52 Second Hand Exposure: No Counseling given: provider counseling Smoking risk assessment performed?: Yes Alcohol Intake: former Counseling given: Yes Drug use: Daily Substance use type: marijuana Counseling given: No Details: stopped drinking 2017, except for rare exceptions quit smoking August 2020 Caregiver/Support person: Yes Household members: family Housing: house Number of Children: 1 number of grandchildren: 3 Communication Needs: Hard of Hearing and Corrective Lenses Education Level: high school Do you need help understanding health information?: Always 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, [employer], [employer]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 Pets and animals: Yes Current gender identity: male What is your relationship status?: How often do you talk on the phone with friends or family?: never How often do you get together with friends or relatives?: twice per week Panel score (0-1 are the most socially isolated patients): 0 What type of physical activity do you participate in: walking and sedentary lifestyle Duration: 15-30 minutes/day Special roslyn needs: No Agree to transfusion: No Seatbelt use: sometimes Helmet use: No Working smoke detector in home: Yes Fire extinguisher in home: Yes Do you feel safe at home: Yes Do you feel safe in your relationship?: Yes Additional Social history: Patient lives with his son, daughter in-law and grandson [facility], Dr Albright is his current MD, likes her very much. Has 2 granddaughters from his only biological child, Fred Guerra Nicolle, Sr. Very involved in grandson's life. Doesn't see granddaughters regularly. Son Evert's partner, Rehana, is Fred's primary caregiver. She's been staying home with him. Son has also curtailed his business so he can be with his father. Evert used to live with a caregiver who took his money and neglected his medical needs, according to Evert and Rehana. Exam Const General: no acute distress Orientation: alert [facility] Head: normal to inspection Ears: external ears normal General nose exam: external nose normal Mouth: moist mucous membranes Eyes General: appearance normal, both eyes and all related structures Neck Neck: normal visual inspection Resp Effort & Inspection: normal respiratory effort and able to speak in complete sentences Cardio Rate: regular rate GI Palpation: soft and nontender Skin General skin exam: no rashes or lesions noted Neuro General: patient alert Extrem General: normal to inspection Psych Mental Status: mental status grossly normal Course Vital Signs Vital signs: Vital Signs Temperature 36.7 C 11/23/21 15:37 Pulse 69 11/23/21 15:37 Respiratory Rate 20 11/23/21 15:37 Blood Pressure 141/77 H 11/23/21 15:37 Pulse Oximetry 96 11/23/21 15:37 Temperature 36.7 C 11/23/21 15:37 Temperature Source Temporal Artery Scan 11/23/21 15:37 Pulse 69 11/23/21 15:37 Respiratory Rate 20 11/23/21 15:37 Respiratory Effort Non-Labored 11/23/21 15:39 Blood Pressure 141/77 H 11/23/21 15:37 Blood Pressure Position Sitting 11/23/21 15:37 Pulse Oximetry 96 11/23/21 15:37 Pain Level 0 11/23/21 15:37
[2021-11-23 17:03] LABS: Anion Gap 9.4 mmol/L (3-11); BUN 29 mg/dL (7-18); CO2 26.6 mmol/L (21.0-32.0); CREATININE 1.6 mg/dL (0.70-1.30); Calcium 9.1 mg/dL (8.5-10.1); Chloride 101 mmol/L (98-107); Glucose 124 mg/dL (74-106); Potassium 3.4 mmol/L (3.5-5.1); Sodium 137 mmol/L (136-145)
[2021-11-23 17:07] VITALS: RESP 22
== END 2021-11-23 17:38 | disposition home or self-care (01) ==
PROVIDERS: Emergency Provider Emergency Medicine; PCP Internal Medicine Geriatric Medicine
DX: E87.6 Hypokalemia (principal); I10 Essential (primary) hypertension; Z86.16 Personal history of COVID-19; Z87.891 Personal history of nicotine dependence
CPT/HCPCS: 80048; 93005; 99283; 81003; 93010; 99282

== ENCOUNTER 2022-01-14 03:07 | Outpatient (CLI) | payer MEDICARE, SELFPAY ==
[2022-01-14 13:00] LABS: TSH 2.56 uIU/mL (0.36-3.74); Vitamin B12 824 pg/mL (193-986)
== END 2022-01-14 03:08 | disposition home or self-care (01) ==
LOC: LOS 03:07
PROVIDERS: PCP Internal Medicine Geriatric Medicine; Visit Provider Internal Medicine Geriatric Medicine
DX: E03.8 Other specified hypothyroidism (principal); E87.6 Hypokalemia
CPT/HCPCS: 36415; 82607; 84443

== ENCOUNTER 2022-01-23 17:16 | Emergency (ER) | payer MEDICARE, SELFPAY ==
[2022-01-23] VITALS (29 sets, daily range): BP systolic 137–181; BP diastolic 61–118; PULSE 68–102; RESP 18–33; TEMP 37.2; O2SAT 81–94
--- NOTE | 2022-01-23 17:15 | RT.EKG_ITS ---
APPROVED REPORT Exam: Resting ECG Reason for Exam: chest pain Patient Location: E HR:76 bpm ECG Measurements Heart Rate 76 AXIS MA 221 P 60 QRSd 94 QRS -13 QT 412 T 49 QTc 463 Conclusion Sinus rhythm...normal P axis, V-rate 60- 99 Borderline prolonged MA interval...MA >212, V-rate 50- 90 Consider anteroseptal infarct...Q >30mS, dimin R, V1-V2. Sinus. No STEMI. I have reviewed and interpreted ECG and agree with software generated interpretation.
--- NOTE | 2022-01-23 17:30 | DI.RAD_ITS ---
Exam(s) XR CHEST 2V PA LATERAL EXAM: XR CHEST 2V PA LATERAL CLINICAL HISTORY: chest pain, syncope, r/o acute disease TECHNIQUE: 2D digital imaging was performed of the chest. Two images were obtained. PA and lateral views were obtained. COMPARISON: CR XR CHEST 2V PA LATERAL from 09/20/2018 CR,XR XR PORTABLE CHEST AP from 11/08/2021 FINDINGS: MEDIASTINUM: Normal. HEART: Normal. PULMONARY VASCULATURE: Normal. LUNGS: There is unchanged scarring in the left lung base. No focal consolidation is present. PLEURAL SPACE: No pleural effusion or pneumothorax. BONE:Within normal limits for the patient's age. There are old healed rib fractures on the left. OTHER FINDINGS:There is elevation of the right hemidiaphragm. IMPRESSION: No acute pulmonary findings. DATA REPOSITORY: RADIATION DOSE DELIVERED:
[2022-01-23 17:48] LABS: Abs Immature Grans 0.06 10^3/uL (0.0-0.06); Absolute Basophil Count 0.04 10^3/uL (0.0-0.2); Absolute Eosinophil Count 0.01 10^3/uL (0.0-0.7); Absolute Lymphocyte Count 0.84 10^3/uL (1.2-3.4); Absolute Monocyte Count 1.07 10^3/uL (0.1-0.8); Absolute Neutrophil Count 6.16 10^3/uL (1.2-6.7); Basophils % 0.5; Eosinophils % 0.1; HCT 36.6 % (40.0-50.0); HGB 12.1 g/dL (13.5-17.5); Immature Grans % 0.7; Lymphocytes % 10.3; MCH 28.1 pg (27.0-33.0); MCHC 33.1 % (32.0-36.0); MCV 85 fL (80-95); MPV 8.9 fL (8.0-11.0); Monocytes % 13.1; Neutrophils % 75.3; Platelet Count 282 10^3/uL (130-400); RBC 4.31 10^6/uL (4.36-5.78); RDW 16.2 % (11.8-14.1); RDW-SD 50.8 fL; WBC 8.18 10^3/uL (4.4-10.8)
--- NOTE | 2022-01-23 18:15 | DI.CT_ITS ---
Exam(s) CT HEAD WO EXAM: CT HEAD WO CLINICAL HISTORY: possible seizure vs syncope, r/o cva. TECHNIQUE: Imaging Protocol: Axial computed tomography images with coronal and sagittal reformatted images were created and reviewed COMPARISON: CT CT HEAD WO from 02/17/2021 FINDINGS: Ventricles and Extra axial spaces: Normal in size and morphology for the patient's age. Hemorrhage: None. Cerebral parenchyma: No acute territorial infarct is present. There are old areas of infarct seen in the high left parietal lobe and the posterior medial left occipital lobe. There are areas of decrea sed attenuation in the white matter consistent with small vessel ischemic disease. Midline shift: None. Brainstem/Cerebellum: Normal. Calvarium: Normal. Visualized Paranasal sinuses/Mastoids: Mild mucosal thickening is seen in the left maxillary sinus. The remaining visualized paranasal sinuses and mastoid air cells are clear. Soft Tissues: Unremarkable. IMPRESSION: No acute intracranial process. RADIATION DOSE DELIVERED: 816.62mGy.cm Total DLP DATA REPOSITORY: All CT scans at this facility are submitted to the National Radiology Data Registry (NRDR) Dose Index Registry (DIR) with the [employer] ([employer]). RADIATION OPTIMIZATION: All CT scans at this facility use at least one of these dose optimization te chniques: automated exposure control; mA and/or kV adjustment per patient size (includes targeted exa ms where dose is matched to clinical indication); or iterative reconstruction.
--- NOTE | 2022-01-23 18:33 | ED.GENADUL_ITS ---
Discharge Plan Disposition Patient Disposition: Home Condition: Stable Discharge Details Clinical Impression: Influenza A, Episode of shaking Primary Care Provider: Cierra Albright ED Provider: Hoda Thurston Home Meds and New Rx's Prescriptions: Continued polyethylene glycol 3350 17 gram/dose powder 17 g PO DAILY PRN (Reason: constipation) Qty: 510 0RF albuterol sulfate 90 mcg/actuation Hfa Aerosol Inhaler 2 puff INHALATION Q6H PRN aspirin 325 mg Tablet 325 mg PO DAILY amlodipine 5 mg Tablet 10 mg PO DAILY Qty: 60 0RF budesonide-formoterol [Symbicort] 160-4.5 mcg/actuation Hfa Aerosol Inhaler 2 puff inhalation BID Qty: 6 1RF acetaminophen 500 mg tablet 500 mg PO Q8H PRN (Reason: pain) Qty: 60 3RF levothyroxine 25 mcg tablet 50 mcg PO DAILY Label Comments: TAKE 1 TABLET BY MOUTH EVERY DAY omeprazole 20 mg Capsule,Delayed Release(Dr/Ec) 20 mg PO DAILY atorvastatin 20 mg tablet 40 mg PO DAILY guaifenesin 600 mg tablet extended release 12hr 600 mg PO BID famotidine 20 mg Tablet 20 mg PO BID metoprolol succinate 100 mg tablet extended release 24 hr 100 mg PO DAILY Rx Instructions: takes with 50 mg tab for dose of 150 mg daily spironolactone 50 mg Tablet 50 mg PO DAILY Discharge Instructions Instructions: Syncope (ED), H1N1 Influenza (ED) Additional Instructions: Your father is positive for Influenza A which is a virus best treated with fluids, rest and [id number] cough and cold medication. Alternate tylenol and motrin as needed and directed for pain. The remainder of your blood tests, EKG, and imaging today are reassuring and show no evidence of acute concerning or significant findings. Drink plenty of fluids and get plenty of rest. Call your primary care doctor's office tomorrow to schedule a follow-up appointment for reevaluation within the next week. Return immediately to the emergency department if you develop any worsening or new concerning symptoms. Discharge Data Discharge Date/Time-TO BE ENTERED AT DEPARTURE: 01/23/22 20:38 Discharge Physician: Hoda Thurston Medical Decision Making 71yo M who is DNR/DNI with a history of dementia, hypertension, COPD, coronary artery disease, history of tobacco dependence and alcohol abuse who presents with a report of an episode in which his eyes rolled back, he had several seconds of shaking and it appears that he stopped breathing prior to arrival. Blood pressure moderately hypertensive. Remainder vitals within normal limits. Patient is irritable and asking to go home. He is arguing with staff that he does not want to be here. Upon my arrival, patient is sleeping. When attempt to awaken and adjust him on the stretcher, he states he wants to get the hell out of here. Son at bedside states he would just like his father to be checked out to make sure he did not have a stroke or a heart attack. EKG notes a rate of 76, sinus, no STEMI nondiagnostic. Patient has no obvious focal deficits on exam. He appears comfortable and nontoxic. Considering his age and history, will obtain screening labs, CT head, chest x-ray, urinalysis and Fluvid and give fluids and reassess. Labs and imaging reviewed. Normal white blood cell count. Hemoglobin 12. Reassuring electrolytes. Creatinine near baseline. Troponin negative. Son who pt's guardian states he does not want to stay for repeat troponin. Risks of and disability due to missed or delayed diagnoses explained and son understands and demonstrates capacity to make decisions. Urinalysis notes high specific gravity but no evidence of infection. Influenza A positive. COVID and RSV negative. CT head negative for acute findings. Chest x-ray negative for acute findings. Results discussed with son at bedside. He states he has had cough, bodyaches and fatigue for 3 days. Discussed that he is outside the window for Tamiflu. We will give IV Tylenol as son states he seems to have body aches at times. Advised to follow up with the primary care doctor for re-evaluation. Usual and customary return precautions given prior to discharge. Medical Records Medical records reviewed: Yes I reviewed the patient's medical records. Imaging Data Radiologic Study: Radiologist's impression: CT Head Without Contrast Exam date and time: 01/23/2022 7:18 PM Age: 71 years old Clinical indication: Stroke-like symptoms; Altered mental status/memory loss and syncope/collapse; Additional info: Possible seizure vs syncope, R/O CVA TECHNIQUE: Imaging protocol: Computed tomography of the head without contrast. Radiation optimization: All CT scans at this facility use at least one of these dose optimization techniques: automated exposure control; mA and/or kV adjustment per patient size (includes targeted exams where dose is matched to clinical indication); or iterative reconstruction. Other technique: STROKE PROTOCOL was implemented. COMPARISON: CT HEAD WO 02/17/2021 10:27 PM FINDINGS: Brain: No acute intracerebral abnormality or injury. No acute infarct or intracerebral bleed. [place] Stroke Program Early CT Score (ASPECTS score) = 10, negative for acute intracerebral infarct. Cerebral ventricles: No ventriculomegaly. Paranasal sinuses: Visualized sinuses are unremarkable. No fluid levels. Mastoid air cells: Visualized mastoid air cells are well aerated. Bones/joints: Unremarkable. No acute fracture. Soft tissues: Unremarkable. Vasculature: Moderate generalized cerebral atrophy with extensive patchy periventricular leukomalacia in both cerebral hemispheres, consistent most likely with chronic underlying small vessel / microvascular ischemic disease. Large old chronic cortical infarcts are again seen in the left superior parietal lobe and the posteromedial left occipital lobe, unchanged since the previous head CT from 02/17/2021. IMPRESSION: 1. No acute intracerebral abnormality or injury. No acute infarct or intracerebral bleed. 2. Moderate generalized cerebral atrophy with extensive patchy periventricular leukomalacia in both cerebral hemispheres, consistent most likely with chronic underlying small vessel / microvascular ischemic disease. Large old chronic cortical infarcts are again seen in the left superior parietal lobe and the posteromedial left occipital lobe, unchanged since the previous head CT from 02/17/2021. Lab Data Lab results reviewed: Yes I reviewed the patient's lab results. Labs: Laboratory Tests Range/Units 01/23/22 01/23/22 01/23/22 17:40 17:40 18:25 WBC (4.4-10.8) 10^3/uL 8.18 RBC (4.36-5.78) 10^6/uL 4.31 L Hgb (13.5-17.5) g/dL 12.1 L Hct (40.0-50.0) % 36.6 L MCV (80-95) fL 85 MCH (27.0-33.0) pg 28.1 MCHC (32.0-36.0) % 33.1 RDW (11.8-14.1) % 16.2 H Plt Count (130-400) 10^3/uL 282 MPV (8.0-11.0) fL 8.9 Immature Gran % 0.7 Neutrophils % 75.3 Lymphocytes % 10.3 Monocytes % 13.1 Eosinophils % 0.1 Basophils % 0.5 Nucleated RBC % (0.0-0.3) % 0.0 Absolute Neutrophils (1.2-6.7) 10^3/uL 6.16 Absolute Lymphocytes (1.2-3.4) 10^3/uL 0.84 L Absolute Monocytes (0.1-0.8) 10^3/uL 1.07 H Absolute Eosinophils (0.0-0.7) 10^3/uL 0.01 Absolute Basophils (0.0-0.2) 10^3/uL 0.04 Sodium Cancelled Potassium Cancelled Chloride Cancelled Carbon Dioxide Cancelled Anion Gap Cancelled BUN Cancelled Creatinine Cancelled Est GFR (CKD-EPI 2020) Cancelled Glucose Cancelled Calcium Cancelled Magnesium Cancelled Total Bilirubin Cancelled AST Cancelled ALT Cancelled Alkaline Phosphatase Cancelled Troponin I Cancelled Total Protein Cancelled Albumin Cancelled Urine Color (Yellow) Yellow Urine Clarity (Clear) Clear Urine pH (5-8) 6.5 Ur Specific Ramona (1.005-1.025) >= 1.030 H Urine Protein (Negative) mg/dL 100 H Urine Ketones (Negative) mg/dL Negative Urine Blood (Negative) Negative Urine Nitrite (Negative) Negative Urine Bilirubin (Negative) Negative Urine Urobilinogen (Up TO 0.2) EU/dL 0.2 Ur Leukocyte Esterase (Negative) Negative Urine RBC (0-2) HPF 0-2 Urine WBC (0-5) HPF 0-2 Ur Epithelial Cells (Negative) HPF Rare Urine Crystals (Negative) HPF Negative Urine Bacteria (Negative) HPF Rare Urine Mucus (Negative) Negative Ur Culture Indicated? No Urine Glucose (Negative) mg/dL Negative COVID-19 Source SARS-CoV-2 (PCR) (Negative) Influenza Type A (PCR) (Negative) Influenza Type B (PCR) (Negative) RSV (PCR) (Negative) Range/Units 01/23/22 01/23/22 01/23/22 18:32 19:13 20:31 WBC (4.4-10.8) 10^3/uL RBC (4.36-5.78) 10^6/uL Hgb (13.5-17.5) g/dL Hct (40.0-50.0) % MCV (80-95) fL MCH (27.0-33.0) pg MCHC (32.0-36.0) % RDW (11.8-14.1) % Plt Count (130-400) 10^3/uL MPV (8.0-11.0) fL Immature Gran % Neutrophils % Lymphocytes % Monocytes % Eosinophils % Basophils % Nucleated RBC % (0.0-0.3) % Absolute Neutrophils (1.2-6.7) 10^3/uL Absolute Lymphocytes (1.2-3.4) 10^3/uL Absolute Monocytes (0.1-0.8) 10^3/uL Absolute Eosinophils (0.0-0.7) 10^3/uL Absolute Basophils (0.0-0.2) 10^3/uL Sodium 133 L Potassium 3.8 Chloride 96 L Carbon Dioxide 26.1 Anion Gap 10.9 BUN 22 H Creatinine 1.8 H Est GFR (CKD-EPI 2020) 39.50 Glucose 131 H Calcium 9.0 Magnesium 2.0 Total Bilirubin 0.4 AST 28 ALT 21 Alkaline Phosphatase 151 H Troponin I < 50 Cancelled Total Protein 7.8 Albumin 3.6 Urine Color (Yellow) Urine Clarity (Clear) Urine pH (5-8) Ur Specific Ramona (1.005-1.025) Urine Protein (Negative) mg/dL Urine Ketones (Negative) mg/dL Urine Blood (Negative) Urine Nitrite (Negative) Urine Bilirubin (Negative) Urine Urobilinogen (Up TO 0.2) EU/dL Ur Leukocyte Esterase (Negative) Urine RBC (0-2) HPF Urine WBC (0-5) HPF Ur Epithelial Cells (Negative) HPF Urine Crystals (Negative) HPF Urine Bacteria (Negative) HPF Urine Mucus (Negative) Ur Culture Indicated? Urine Glucose (Negative) mg/dL COVID-19 Source Nasopharynx SARS-CoV-2 (PCR) (Negative) Negative Influenza Type A (PCR) (Negative) Positive A Influenza Type B (PCR) (Negative) Negative RSV (PCR) (Negative) Negative ECG Data Attestation: I personally reviewed and interpreted this ECG (s) as follows: Interpretation: Rate of 76, sinus, no STEMI. Sign Out No HPI General Mode of arrival: EMS . Date/Time Provider Initiated Documentation: 01/23/22 17:31 . Limitations to Documentation: altered mental status . Information obtained by: patient and family . HPI Narrative: Patient is a 71-year-old male with a history of dementia, coronary artery disease, depression, history of tobacco dependence and alcohol abuse who presents from home for a report of a possible syncopal episode. Son at bedside states that patient was sitting when they noticed his eyes rolled the back of his head, he began shaking for several seconds to under a minute and then it appeared that he stopped breathing for several seconds. Son states around this time patient complained of chest pain. Patient denied any symptoms to EMS or currently to staff in the ED. Son states that patient often denies any of his symptoms to medical staff. Son states that patient has complained of body aches and cough in addition to chest pain over the last several days. Son at bedside states that patient has had similar episodes occurring when he has had a heart attack and a stroke in the past. He also states he has had a history of recent seizures which were secondary to a medication. Related Data Home Medications Medication Instructions Recorded Confirmed albuterol sulfate 90 mcg/actuation 2 puff inhalation Q6H PRN 03/05/18 01/23/22 aerosol inhaler aspirin 325 mg tablet 325 mg PO DAILY 09/18/18 01/23/22 amlodipine 5 mg tablet 10 mg PO DAILY #60 tabs 09/20/18 01/23/22 budesonide-formoterol HFA 160 2 puff inhalation BID #6 grams 09/20/18 11/23/21 mcg-4.5 mcg/actuation aerosol inhaler (Symbicort) acetaminophen 500 mg tablet 500 mg PO Q8H PRN pain #60 tabs 10/09/18 11/23/21 polyethylene glycol 3350 17 17 g PO DAILY PRN constipation 11/05/20 11/23/21 gram/dose oral powder #510 grams famotidine 20 mg tablet 20 mg PO BID 01/29/21 11/23/21 metoprolol succinate 100 mg 100 mg PO DAILY 01/29/21 01/23/22 tablet,extended release 24 hr atorvastatin 20 mg tablet 40 mg PO DAILY 11/06/21 01/23/22 guaifenesin 600 mg tablet, 600 mg PO BID 11/06/21 01/23/22 extended release 12 hr levothyroxine 25 mcg tablet 50 mcg PO DAILY 11/06/21 01/23/22 omeprazole 20 mg capsule,delayed 20 mg PO DAILY 11/06/21 01/23/22 release spironolactone 50 mg tablet 50 mg PO DAILY 01/23/22 01/23/22 Previous Rx's Medication Instructions Recorded amlodipine 5 mg tablet 10 mg PO DAILY #60 tabs 09/20/18 budesonide-formoterol HFA 160 2 puff inhalation BID #6 grams 09/20/18 mcg-4.5 mcg/actuation aerosol inhaler (Symbicort) acetaminophen 500 mg tablet 500 mg PO Q8H PRN pain #60 tabs 10/09/18 polyethylene glycol 3350 17 17 g PO DAILY PRN constipation 11/05/20 gram/dose oral powder #510 grams Allergies Allergy/AdvReac Type Severity Reaction Status Date / Time clopidogrel [From Plavix] Allergy Unknown Unverified 11/08/21 19:56 simvastatin Allergy Unknown Unverified 11/08/21 19:56 General Stated Complaint: [id number] JUSTINE: 3 Review of Systems All systems reviewed & are unremarkable except as noted in HPI and below Constitutional Constitutional: Reports as per HPI, Denies chills and Denies fever(s) Eyes Eyes: Denies blurry vision ENT Ears, Nose, Mouth, and Throat: Denies dizziness, Denies sore throat and Denies throat swelling Cardiovascular Cardiovascular: Denies chest pain and Denies dyspnea Respiratory Respiratory: Denies cough and Denies dyspnea Gastrointestinal Gastrointestinal: Denies abdominal pain, Denies diarrhea and Denies vomiting Genitourinary Genitourinary: Denies hematuria and Denies dysuria Musculoskeletal Musculoskeletal: Denies back pain and Denies numbness Integumentary/Breasts Skin/Breast: Denies lesions and Denies rash Neurologic Neurologic: Denies dizziness, Denies localized weakness, Denies numbness and Reports seizure-like activity Allergic/Immunologic Allergic/Immunologic: Denies throat swelling PFSH All Active Problems (Updated 01/23/22 @ 20:15 by Hoda Thurston DO) COVID (Acute) Episode of shaking (Acute) Influenza A (Acute) Syncope (Chronic) Acute kidney injury (Acute) Goals of care, counseling/discussion (Acute) DNI (do not intubate) (Acute) DNR (do not resuscitate) (Acute) POLST (Physician Orders for Life-Sustaining Treatment) (Acute) DNR/DNI signed by pt and son(DPOA) 11/02/20 Retinal hemorrhage, right eye (Acute) 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 History of traumatic brain injury (Acute) Vascular dementia (Acute) Alcoholic dementia (Acute) History of smoking (Acute) Closed left radial fracture (Acute) s/p ORIF L distal radius 10/09/2018 Peripheral vascular disease of extremity with claudication (Acute) Hypertension (Chronic) COPD (chronic obstructive pulmonary disease) (Chronic) Diverticulitis large intestine (Acute) Pneumothorax, left (Acute) Left rib fracture (Acute) Medical History Abnormal gait Alcohol abuse Cataract Coronary artery disease Depression Erectile dysfunction Hepatitis C treated with Ribavirin and interferon. PCR qual neg 11/1999 Impaired cognition Memory loss Palliative care patient Tobacco dependence quit 2019 Vitamin D deficiency Surgical History H/O right knee surgery Status post closed fracture of femur s/p repair Family History Son Diabetes Pancreatitis, acute Grandson No problems noted. Mother , age 95 from DM2 and heart disease Heart disease Diabetes Father , in his early 50s from etohism Alcohol use disorder Sister Colon cancer Granddaughter Substance use disorder Other Cancer Social History Smoking/Tobacco Use Status: Current every day Tobacco Type: cigarettes Tobacco: How many years used: 52 Second Hand Exposure: No Counseling given: provider counseling Smoking risk assessment performed?: Yes Alcohol Intake: current Alcohol Intake frequency: a few times a week Alcohol type: beer Counseling given: Yes Drug use: Daily Substance use type: marijuana Counseling given: No Caregiver/Support person: Yes Household members: family Housing: house Number of Children: 1 number of grandchildren: 3 Communication Needs: Hard of Hearing and Corrective Lenses Education Level: high school Do you need help understanding health information?: Always 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[employer], [employer], 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 Pets and animals: Yes Current gender identity: male What is your relationship status?: How often do you talk on the phone with friends or family?: never How often do you get together with friends or relatives?: twice per week Panel score (0-1 are the most socially isolated patients): 0 What type of physical activity do you participate in: walking and sedentary lifestyle Duration: 15-30 minutes/day Special roslyn needs: No Agree to transfusion: No Seatbelt use: sometimes Helmet use: No Working smoke detector in home: Yes Fire extinguisher in home: Yes Do you feel safe at home: Yes Do you feel safe in your relationship?: Yes Exam Const General: other (sleeping, but irritable when awoken) Nutritional Appearance: average body habitus HENWA Head: normal to inspection Ears: hearing grossly normal bilaterally General nose exam: external nose normal Mouth: mucous membranes dry Eyes General: appearance normal, both eyes and all related structures Pupils: PERRL EOM: EOM intact bilaterally Neck Neck: normal visual inspection and No submandibular swelling Lymphatic: no lymphadenopathy noted Chest Chest: normal inspection of the chest and no tenderness Resp Effort & Inspection: normal respiratory effort and able to speak in complete sentences Auscultation: clear to auscultation bilaterally Cardio Rate: regular rate Rhythm: regular rhythm GI Inspection: normal to inspection Palpation: soft, not firm, not rigid and nontender Auscultation: hypoactive bowel sounds Male General Exam: Yes normal external exam Back/Spine/Pelvis Thoracic/Lumbar Spine: thoracic and lumbar spine normal to inspection Skin Other: Scattered excoriations, most 4x4mm in size, noted to face and back consistent with picking, no signs of cellulitis. Neuro General: patient alert, patient awake and patient oriented x3 Cognition: normal cognition Speech: speech normal Motor: muscle tone normal throughout Sensory Exam: no sensory deficits noted Extrem General: normal to inspection, full ROM, capillary refill normal, no calf tenderness bilaterally and no edema Psych Appearance: grossly normal Mental Status: mental status grossly normal Speech and Movement: speech and movement normal Affect: normal affect Course Vital Signs Vital signs: Vital Signs Temperature 99 F 01/23/22 17:26 Pulse 83 01/23/22 17:26 Respiratory Rate 18 01/23/22 17:26 Blood Pressure 156/118 H 01/23/22 17:26 Pulse Oximetry 93 01/23/22 17:26 Temperature 99 F 01/23/22 17:26 Temperature Source Skin 01/23/22 17:26 Pulse 83 01/23/22 17:26 Respiratory Rate 24 01/23/22 17:37 Respiratory Effort Non-Labored 01/23/22 17:37 Respiratory Depth Normal 01/23/22 17:37 Respiratory Pattern Normal 01/23/22 17:37 Blood Pressure 156/118 H 01/23/22 17:26 Blood Pressure Position Supine 01/23/22 17:26 Pulse Oximetry 93 01/23/22 17:26 Oxygen Delivery Method Room Air 01/23/22 17:26 Oxygen Flow Rate 0 01/23/22 17:26 Lab/Test Results Lab/Test Results: Laboratory Tests Range/Units 01/23/22 01/23/22 17:40 17:40 WBC (4.4-10.8) 10^3/uL 8.18 RBC (4.36-5.78) 10^6/uL 4.31 L Hgb (13.5-17.5) g/dL 12.1 L Hct (40.0-50.0) % 36.6 L MCV (80-95) fL 85 MCH (27.0-33.0) pg 28.1 MCHC (32.0-36.0) % 33.1 RDW (11.8-14.1) % 16.2 H Plt Count (130-400) 10^3/uL 282 MPV (8.0-11.0) fL 8.9 Immature Gran % 0.7 Neutrophils % 75.3 Lymphocytes % 10.3 Monocytes % 13.1 Eosinophils % 0.1 Basophils % 0.5 Nucleated RBC % (0.0-0.3) % 0.0 Absolute Neutrophils (1.2-6.7) 10^3/uL 6.16 Absolute Lymphocytes (1.2-3.4) 10^3/uL 0.84 L Absolute Monocytes (0.1-0.8) 10^3/uL 1.07 H Absolute Eosinophils (0.0-0.7) 10^3/uL 0.01 Absolute Basophils (0.0-0.2) 10^3/uL 0.04 Sodium Cancelled Potassium Cancelled Chloride Cancelled Carbon Dioxide Cancelled Anion Gap Cancelled BUN Cancelled Creatinine Cancelled Est GFR (CKD-EPI 2020) Cancelled Glucose Cancelled Calcium Cancelled Magnesium Cancelled Total Bilirubin Cancelled AST Cancelled ALT Cancelled Alkaline Phosphatase Cancelled Troponin I Cancelled Total Protein Cancelled Albumin Cancelled PAWSS Have you Been Recently Intoxicated or Drunk Within the Last 30 days?: Yes Have you Ever Experienced Previous Episodes of Alcohol Withdrawal?: No Have you ever Experienced Withdrawal Seizures?: No Have you ever Experienced Delirium Tremens(DT)s?: No Have you ever undergone Alcohol Rehabilitation Treatment (i.e, inpt ot outpatient treatment programs)?: No Have you ever Experienced Blackouts?: No Have you ever Combined Alcohol with other Downers within the last 90 days?: No Have you ever Combined Alcohol with any other Substance of Abuse during the last 90 days?: No Positive Blood Alcohol level on Presentation? [PCS.BAL]: No Evidence of Increased Autonomic Activity (i.e. HR>120, tremor, sweating, agitation, nausea)?: No Result: 1
[2022-01-23] MEDS: Normal Saline 500 ML IV (18:35)
[2022-01-23 18:41] LABS: Bilirubin Negative (Negative); Blood Negative (Negative); Clarity Clear (Clear); Glucose Negative (Negative); Ketones Negative (Negative); Leukocyte Esterase Negative (Negative); Nitrite Negative (Negative); Specific Gravity >= 1.030 (1.005-1.025); Urobilinogen 0.2 EU/dL (Up TO 0.2); pH 6.5 (5-8)
[2022-01-23 18:58] LABS: Bacteria Rare HPF (Negative); C & S Indicated? No; Crystals Negative HPF (Negative); Epithelial Cells Rare HPF (Negative); Mucus Negative (Negative); RBC 0-2 HPF (0-2); WBC 0-2 HPF (0-5)
[2022-01-23 19:06] LABS: ALT 21 U/L (16-63); AST 28 U/L (15-37); Albumin 3.6 g/dL (3.4-5.0); Alkaline Phosphatase 151 U/L (46-116); Anion Gap 10.9 mmol/L (3-11); BUN 22 mg/dL (7-18); Bilirubin, Total 0.4 mg/dL (0.2-1.0); CO2 26.1 mmol/L (21.0-32.0); CREATININE 1.8 mg/dL (0.70-1.30); Chloride 96 mmol/L (98-107); Glucose 131 mg/dL (74-106); Potassium 3.8 mmol/L (3.5-5.1); Sodium 133 mmol/L (136-145); Total Protein 7.8 g/dL (6.4-8.2); Troponin I < 50 ng/L (<or=60)
--- NOTE | 2022-01-23 19:38 | DI.VRAD_ITS ---
PROCEDURE INFORMATION: Exam: CT Head Without Contrast Exam date and time: 01/23/2022 7:18 PM Age: 71 years old Clinical indication: Stroke-like symptoms; Altered mental status/memory loss and syncope/collapse; Additional info: Possible seizure vs syncope, R/O CVA TECHNIQUE: Imaging protocol: Computed tomography of the head without contrast. Radiation optimization: All CT scans at this facility use at least one of these dose optimization techniques: automated exposure control; mA and/or kV adjustment per patient size (includes targeted exams where dose is matched to clinical indication); or iterative reconstruction. Other technique: STROKE PROTOCOL was implemented. COMPARISON: CT HEAD WO 02/17/2021 10:27 PM FINDINGS: Brain: No acute intracerebral abnormality or injury. No acute infarct or intracerebral bleed. [place] Stroke Program Early CT Score (ASPECTS score) = 10, negative for acute intracerebral infarct. Cerebral ventricles: No ventriculomegaly. Paranasal sinuses: Visualized sinuses are unremarkable. No fluid levels. Mastoid air cells: Visualized mastoid air cells are well aerated. Bones/joints: Unremarkable. No acute fracture. Soft tissues: Unremarkable. Vasculature: Moderate generalized cerebral atrophy with extensive patchy periventricular leukomalacia in both cerebral hemispheres, consistent most likely with chronic underlying small vessel / microvascular ischemic disease. Large old chronic cortical infarcts are again seen in the left superior parietal lobe and the posteromedial left occipital lobe, unchanged since the previous head CT from 02/17/2021. IMPRESSION: 1. No acute intracerebral abnormality or injury. No acute infarct or intracerebral bleed. 2. Moderate generalized cerebral atrophy with extensive patchy periventricular leukomalacia in both cerebral hemispheres, consistent most likely with chronic underlying small vessel / microvascular ischemic disease. Large old chronic cortical infarcts are again seen in the left superior parietal lobe and the posteromedial left occipital lobe, unchanged since the previous head CT from 02/17/2021. 3. [place] Stroke Program Early CT Score (ASPECTS score) = 10, negative for acute intracerebral infarct. Dictated and Authenticated by: Candelario Garcia MD. Ordering:GABINO Drummond MD
[2022-01-23 19:53] LABS: COVID-19 PCR Negative (Negative); Influenza A PCR Positive (Negative); Influenza B PCR Negative (Negative); RSV PCR Negative (Negative)
[2022-01-23 19:56] LABS: Source Nasopharynx
--- NOTE | 2022-01-23 20:07 | DI.VRAD_ITS ---
PROCEDURE INFORMATION: Exam: XR Chest Exam date and time: 01/23/2022 7:26 PM Age: 71 years old Clinical indication: Other: Chest pain, syncope, R/O acute dz; Additional info: Possible seizure vs syncope, R/O CVA TECHNIQUE: Imaging protocol: Radiologic exam of the chest. Views: 2 views. COMPARISON: XR PORTABLE CHEST AP 11/08/2021 8:26 PM FINDINGS: Lungs: Small linear areas questionable subsegmental atelectasis versus pleuroparenchymal scarring are noted in the left lung base. Pleural spaces: Unremarkable. No pleural effusion. No pneumothorax. Heart/Mediastinum: The heart size is normal. Bones/joints: Old healed rib fractures are seen on the left involving the posterior ribs 4 and 5. Soft tissues: Comparison to the previous chest radiograph from 11/08/2021 shows no significant interval change. Marked elevation of the right hemidiaphragm is present with right hepatic flexure colon below the right hemidiaphragm. Lordotic positioning of the patient. IMPRESSION: 1. Comparison to the previous chest radiograph from 11/08/2021 shows no significant interval change. Marked elevation of the right hemidiaphragm is present with right hepatic flexure colon below the right hemidiaphragm. Lordotic positioning of the patient. 2. The heart size is normal. 3. Small linear areas questionable subsegmental atelectasis versus pleuroparenchymal scarring are noted in the left lung base. 4. Old healed rib fractures are seen on the left involving the posterior ribs 4 and 5. Dictated and Authenticated by: Candelario Garcia MD. Ordering:GABINO Drummond MD
[2022-01-23] MEDS: ACETAMINOPHEN 1,000 MG/100 ML BTL 400 MG IVPB (20:17)
== END 2022-01-23 20:38 | disposition home or self-care (01) ==
PROVIDERS: Emergency Provider Physician Assistant; PCP Internal Medicine Geriatric Medicine
DX: J10.1 Influenza due to other identified influenza virus with other respiratory manifestations (principal); R25.1 Tremor, unspecified; I10 Essential (primary) hypertension; J44.9 Chronic obstructive pulmonary disease, unspecified; F03.90 Unspecified dementia, unspecified severity, without behavioral disturbance, psychotic disturbance, mood disturbance, and anxiety; I25.10 Atherosclerotic heart disease of native coronary artery without angina pectoris; Z20.822 Contact with and (suspected) exposure to COVID-19; Z79.82 Long term (current) use of aspirin; Z79.51 Long term (current) use of inhaled steroids
CPT/HCPCS: 80053; 87637; 93005; 96361; 96365; 99284; 70450; 71046; 81003; 81015; 83735; 84484; 85025; 93010; 99285; J0131

== ENCOUNTER 2022-09-29 13:29 | Emergency (ER) | payer OTHER, SELFPAY ==
[2022-09-29] VITALS (34 sets, daily range): BP systolic 140–186; BP diastolic 60–161; PULSE 69–85; RESP 4–25; TEMP 36.7; O2SAT 92–98
--- NOTE | 2022-09-29 13:30 | RT.EKG_ITS ---
APPROVED REPORT Exam: Resting ECG Reason for Exam: Increased Edema, Cough Patient Location: E HR:76 bpm ECG Measurements Heart Rate 76 AXIS PA 194 P 48 QRSd 96 QRS -18 QT 401 T 60 QTc 453 Conclusion Sinus rhythm...normal P axis, V-rate 60- 99 Consider anteroseptal infarct...Q >30mS, dimin R, V1-V2
--- NOTE | 2022-09-29 14:00 | DI.RAD_ITS ---
Exam(s) XR CHEST 2V PA LATERAL EXAM: XR CHEST 2V PA LATERAL CLINICAL HISTORY: wheezing TECHNIQUE: 2D digital imaging was performed. COMPARISON: CR,XR XR CHEST 2V PA LATERAL from 01/23/2022 FINDINGS: The right hemidiaphragm is again noted to be elevated to the level of the right hilum. HEART: Normal size. Aorta: Not dilated. PULMONARY VASCULATURE: Normal. LUNGS: Mild atelectasis above the right diaphragm. PLEURAL SPACE: No pleural effusion or pneumothorax. BONE:Unremarkable for age. IMPRESSION: No acute abnormality. DATA REPOSITORY: RADIATION DOSE DELIVERED:
--- NOTE | 2022-09-29 14:05 | ED.GENADUL_ITS ---
Discharge Plan Disposition Patient Disposition: Home Discharge Details Clinical Impression: Edema Primary Care Provider: Cierra Albright ED Provider: Sujit Nagel Home Meds and New Rx's Prescriptions: No Action albuterol sulfate 90 mcg/actuation Hfa Aerosol Inhaler 2 puff INHALATION Q6H PRN aspirin 325 mg Tablet 325 mg PO DAILY amlodipine 5 mg Tablet 10 mg PO DAILY Qty: 60 0RF budesonide-formoterol [Symbicort] 160-4.5 mcg/actuation Hfa Aerosol Inhaler 2 puff inhalation BID Qty: 6 1RF Patient Comments: Pt's caregiver states, he has not been using his inhalers lately. ML 09/29/22 acetaminophen 500 mg tablet 500 mg PO Q8H PRN (Reason: pain) Qty: 60 3RF levothyroxine 25 mcg tablet 50 mcg PO DAILY Patient Comments: TAKE 1 TABLET BY MOUTH EVERY DAY omeprazole 20 mg Capsule,Delayed Release(Dr/Ec) 20 mg PO DAILY atorvastatin 20 mg tablet 40 mg PO DAILY guaifenesin 600 mg tablet extended release 12hr 600 mg PO BID famotidine 20 mg Tablet 20 mg PO BID Patient Comments: Pt's caregiver states he is not currently taking - ML 09/29/22 metoprolol succinate 100 mg tablet extended release 24 hr 100 mg PO DAILY Rx Instructions: takes with 50 mg tab for dose of 150 mg daily spironolactone 50 mg Tablet 50 mg PO DAILY polyethylene glycol 3350 [Miralax] 17 gram/dose powder 17 g PO DAILY PRN (Reason: constipation) Discharge Instructions Additional Instructions: It is very important that this gentleman be on a no salt diet. If she has any salty food eats a salty meal he will retain fluid in his legs will swell. Please continue taking all other medications and follow-up with the primary care doctor within the next week. Medical Decision Making EKG done at 1345 reveals normal sinus rhythm at 76. Normal ST segments and T waves. No signs of acute ischemia. Normal intervals. Possibly age- indeterminate anteroseptal infarct The patient had serial troponins which were negative. Chest x-ray was unremarkable. CBC unremarkable, chronic renal insufficiency at baseline creatinine 1.7. Given that he also developed some abdominal discomfort while in the emergency department CT scan without contrast was ordered which did not reveal any significant abnormalities other than some mild constipation. He was given a dose of Lasix with good diuresis in the emergency department. Essentially almost resolution of the lower extremity edema while he was in the emergency department. I reemphasized with his son that it is very important that the patient remain on a no salt diet and that he continue taking all his regular medications. HPI General Date/Time Provider Initiated Documentation: 09/29/22 14:05 . HPI Narrative: Patient is not contributing to his HPI nor review of systems. Historian is his son and caregiver who is at bedside. The reached out to the primary care doctor at the [facility] today because he noticed that the patient had bilateral foot swelling and they were sent to the emergency department. Patient has been behaving normally. Reviewed patient diet. That he is on a high sodium diet. No chest pain no shortness of breath no cough. No abdominal pain. Patient is compliant with all his medications. Related Data Home Medications Medication Instructions Recorded Confirmed albuterol sulfate 90 mcg/actuation 2 puff inhalation Q6H PRN 03/05/18 01/23/22 aerosol inhaler aspirin 325 mg tablet 325 mg PO DAILY 09/18/18 01/23/22 amlodipine 5 mg tablet 10 mg PO DAILY #60 tabs 09/20/18 01/23/22 budesonide-formoterol HFA 160 2 puff inhalation BID #6 grams 09/20/18 11/23/21 mcg-4.5 mcg/actuation aerosol inhaler (Symbicort) acetaminophen 500 mg tablet 500 mg PO Q8H PRN pain #60 tabs 10/09/18 11/23/21 famotidine 20 mg tablet 20 mg PO BID 01/29/21 11/23/21 metoprolol succinate 100 mg 100 mg PO DAILY 01/29/21 09/29/22 tablet,extended release 24 hr atorvastatin 20 mg tablet 40 mg PO DAILY 11/06/21 01/23/22 guaifenesin 600 mg tablet, 600 mg PO BID 11/06/21 09/29/22 extended release 12 hr levothyroxine 25 mcg tablet 50 mcg PO DAILY 11/06/21 09/29/22 omeprazole 20 mg capsule,delayed 20 mg PO DAILY 11/06/21 09/29/22 release spironolactone 50 mg tablet 50 mg PO DAILY 01/23/22 09/29/22 polyethylene glycol 3350 17 17 g PO DAILY PRN constipation 09/29/22 09/29/22 gram/dose oral powder (Miralax) Previous Rx's Medication Instructions Recorded amlodipine 5 mg tablet 10 mg PO DAILY #60 tabs 09/20/18 budesonide-formoterol HFA 160 2 puff inhalation BID #6 grams 09/20/18 mcg-4.5 mcg/actuation aerosol inhaler (Symbicort) acetaminophen 500 mg tablet 500 mg PO Q8H PRN pain #60 tabs 10/09/18 Allergies Allergy/AdvReac Type Severity Reaction Status Date / Time clopidogrel [From Plavix] Allergy Unknown Unverified 09/29/22 14:32 simvastatin Allergy Unknown Unverified 09/29/22 14:32 General Stated Complaint: GenMedical JUSTINE: 3 Review of Systems Narrative: Unable to obtain review of system given patient's short-term memory loss PFSH All Active Problems (Updated 09/29/22 @ 18:10 by Sujit Nagel MD) COVID (Acute) Edema (Acute) Syncope (Chronic) Acute kidney injury (Acute) Goals of care, counseling/discussion (Acute) DNI (do not intubate) (Acute) DNR (do not resuscitate) (Acute) POLST (Physician Orders for Life-Sustaining Treatment) (Acute) DNR/DNI signed by pt and son(DPOA) 11/02/20 Retinal hemorrhage, right eye (Acute) 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) right hand/arm, following postop stroke Chronic post-traumatic stress disorder (PTSD) after combat (Chronic) apparent when delirious, hospitalized, stressed physically or mentally History of delusional disorder (Acute) when hospitalized, mentation deteriorates gets paranoid Postoperative stroke (Chronic) August 2020, following left CEA History of left-sided carotid endarterectomy (Acute) Left-sided carotid artery disease (Acute) 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) [facility] History of traumatic brain injury (Acute) Vascular dementia (Acute) Alcoholic dementia (Acute) History of smoking (Acute) Closed left radial fracture (Acute) s/p ORIF L distal radius 10/09/2018 Peripheral vascular disease of extremity with claudication (Acute) Hypertension (Chronic) COPD (chronic obstructive pulmonary disease) (Chronic) Diverticulitis large intestine (Acute) Pneumothorax, left (Acute) Left rib fracture (Acute) Medical History Abnormal gait Alcohol abuse Cataract Coronary artery disease Depression Erectile dysfunction Hepatitis C treated with Ribavirin and interferon. PCR qual neg 11/1999 Impaired cognition Memory loss Palliative care patient Tobacco dependence quit 2019 Vitamin D deficiency Surgical History H/O right knee surgery Status post closed fracture of femur s/p repair Family History Son Diabetes Pancreatitis, acute Grandson No problems noted. Mother , age 95 from DM2 and heart disease Heart disease Diabetes Father , in his early 50s from etohism Alcohol use disorder Sister Colon cancer Granddaughter Substance use disorder Other Cancer Social History Smoking/Tobacco Use Status: Current every day Tobacco Type: cigarettes Tobacco: How many years used: 52 Second Hand Exposure: No Counseling given: provider counseling Smoking risk assessment performed?: Yes Alcohol Intake: current Alcohol Intake frequency: a few times a week Alcohol type: beer Counseling given: Yes Drug use: Daily Substance use type: marijuana Counseling given: No Caregiver/Support person: Yes Household members: family Housing: house Number of Children: 1 number of grandchildren: 3 Communication Needs: Hard of Hearing and Corrective Lenses Education Level: high school Do you need help understanding health information?: Always 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, [employer], 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 Pets and animals: Yes Current gender identity: male What is your relationship status?: How often do you talk on the phone with friends or family?: never How often do you get together with friends or relatives?: twice per week Panel score (0-1 are the most socially isolated patients): 0 What type of physical activity do you participate in: walking and sedentary lifestyle Duration: 15-30 minutes/day Special roslyn needs: No Agree to transfusion: No Seatbelt use: sometimes Helmet use: No Working smoke detector in home: Yes Fire extinguisher in home: Yes Do you feel safe at home: Yes Do you feel safe in your relationship?: Yes Exam Narrative Exam Narrative: General: A,A Ox3, Calm, no apparent distress, well developed, pleasant and cooperative Head Size/Shape: normocephalic, atraumatic Eyes Pupils: PERRLA Extraocular Mobility: intact and symmetrical Conjunctiva: non-injected, anicteric, no discharge Ears, Nose, Throat Nares: patent bilaterally Oral Cavity: moist Neck: no masses, no crepitus Lymph Nodes: no cervical lymphadenopathy Respiratory Respiratory Effort: no dyspnea Auscultation: Coarse sound bilaterally Cardiovascular Heart Auscultation: regular rate and rhythm, normal S1, normal S2, no murmurs, no rubs, no gallops, Pulse Quality: +2 equal bilaterally, location(s) radial Abdomen Inspection and Palpation: soft, non-tender, non-distended, no hepatosplenomegaly Musculoskeletal System Joints, Bones, and Muscles: no deformities Extremities: warm and well-perfused, no cyanosis, capillary refill <2 seconds, bilateral foot swelling Skin Skin Inspection: no rash, no lesions, no bruising Neurological Motor: normal tone, normal strength, moving all extremities equally Psychiatric: good insight, good judgement, normal mood and affect Course Vital Signs Vital signs: Vital Signs Temperature 36.7 C 09/29/22 13:34 Pulse 73 09/29/22 13:34 Respiratory Rate 18 09/29/22 13:34 Blood Pressure 163/68 H 09/29/22 13:34 Pulse Oximetry 93 09/29/22 13:34 Temperature 36.7 C 09/29/22 13:34 Pulse 73 09/29/22 13:34 Respiratory Rate 20 09/29/22 13:46 Respiratory Effort Normal, Non-Labored 09/29/22 13:46 Respiratory Depth Normal 09/29/22 13:46 Respiratory Pattern Normal 09/29/22 13:46 Blood Pressure 163/68 H 09/29/22 13:34 Pulse Oximetry 93 09/29/22 13:34 Oxygen Delivery Method Room Air 09/29/22 13:34 Oxygen Flow Rate 0 09/29/22 13:34
[2022-09-29 14:19] LABS: Abs Immature Grans 0.28 10^3/uL (0.0-0.06); Absolute Basophil Count 0.08 10^3/uL (0.0-0.2); Absolute Lymphocyte Count 2.14 10^3/uL (1.2-3.4); Basophils % 0.6; Eosinophils % 1.5; HCT 38.5 % (40.0-50.0); Immature Grans % 2.1; Lymphocytes % 16.3; MCH 29.7 pg (27.0-33.0); MCHC 33.8 % (32.0-36.0); MCV 88 fL (80-95); MPV 9.4 fL (8.0-11.0); Monocytes % 6.9; Neutrophils % 72.6; Platelet Count 276 10^3/uL (130-400); RBC 4.37 10^6/uL (4.36-5.78); RDW 14.9 % (11.8-14.1); RDW-SD 48.1 fL
[2022-09-29 14:22] LABS: Absolute Neutrophil Count 9.51 10^3/uL (1.2-6.7)
[2022-09-29] MEDS: Furosemide 20 MG/2 ML VIAL IVP (14:22)
[2022-09-29] MEDS: Albuterol/Ipratropium 3 ML UPD VIAL UPD (14:22)
[2022-09-29 14:42] LABS: ALT 17 U/L (16-63); AST 15 U/L (15-37); Albumin 2.9 g/dL (3.4-5.0); Alkaline Phosphatase 158 U/L (46-116); Anion Gap 7.7 mmol/L (3-11); BUN 27 mg/dL (7-18); Bilirubin, Total 0.5 mg/dL (0.2-1.0); CO2 28.3 mmol/L (21.0-32.0); CREATININE 1.7 mg/dL (0.70-1.30); Calcium 8.8 mg/dL (8.5-10.1); Chloride 97 mmol/L (98-107); Glucose 136 mg/dL (74-106); NT-proBNP 1011 pg/mL (<300); Sodium 133 mmol/L (136-145); Total Protein 6.5 g/dL (6.4-8.2); Troponin I < 50 ng/L (<or=60)
--- NOTE | 2022-09-29 15:18 | DI.VRAD_ITS ---
PROCEDURE INFORMATION: Exam: XR Chest Exam date and time: 09/29/2022 2:49 PM Age: 71 years old Clinical indication: Wheezing TECHNIQUE: Imaging protocol: Radiologic exam of the chest. Views: 2 views. COMPARISON: CR XR CHEST 2V PA LATERAL 01/23/2022 7:26 PM FINDINGS: Lungs: There is some mild right lower lobe atelectasis. Pleural spaces: Unremarkable. No pleural effusion. No pneumothorax. Heart/Mediastinum: Unremarkable. No cardiomegaly. Vasculature: Atherosclerotic change noted in the aorta. Diaphragm: There is elevation of the right hemidiaphragm which appears to have increased since previous study. Bones/joints: Unremarkable. IMPRESSION: Mild right lung base atelectasis with associated elevated right hemidiaphragm. Dictated and Authenticated by: Alix Rainey MD. Ordering:DANYEL Beckett MD
--- NOTE | 2022-09-29 15:30 | DI.CT_ITS ---
Exam(s) CT ABDOMEN PELVIS WO EXAM: CT ABDOMEN PELVIS WO CLINICAL HISTORY: abd pain creatine pain1.7. TECHNIQUE: Imaging Protocol: Axial computed tomography images with coronal and sagittal reformatted images were created and reviewed CONTRAST MATERIAL: Intravenous: none Oral: None COMPARISON: CT CT BRAIN NECK CTA from 08/21/2020 FINDINGS: VISUALIZED LUNG BASES: No nodules nor pleural effusions evident. ABDOMEN: There is no ascites. Right hemidiaphragm is elevated and there is interposition of the hepatic flexu re of the colon between the right hepatic lobe and abdominal wall. No evidence of significant abdomi nal wall hernia LIVER: There are no obvious focal hepatic lesions evident of this noninfused study. GALLBLADDER/BILIARY: No obvious gallbladder pathology. CBD is not dilated. PANCREAS: No evidence of pancreatic mass nor dilatation of the pancreatic duct. SPLEEN: Spleen is not enlarged. No obvious intrasplenic lesions. ADRENALS: There are no significant adrenal masses. KIDNEYS:Right kidney unremarkable. Left kidney is atrophic. It contains a benign cyst measuring 1.5 x 1.5 cm. No solid renal masses. No calculi. ABDOMINAL AORTA: Calcified. There is a mild fusiform infrarenal abdominal aortic aneurysm which exhi bits maximum diameter 2.7 cm. The iliac arteries are not enlarged but are heavily calcified. [place] al iliac arteries as well as femoral arteries heavily calcified. LYMPH NODES: There is no retroperitoneal nor paraaortic adenopathy. ABDOMINAL WALL: No evidence of significant anterior abdominal wall nor inguinal hernia. GI: There is no evidence of bowel obstruction, free air, nor abscess. PELVIS: LYMPH NODES: There is no intrapelvic nor inguinal adenopathy. GI: No evidence of appendicitis.Sigmoid diverticuli but no evidence of obvious acute diverticulitis.M ild constipation. URINARY BLADDER: Mild uniform bladder wall thickening. REPRODUCTIVE: Prostate not enlarged. Seminal vesicles unremarkable. OSSEOUS:. There is an irregularity of the lateral cortex of the right iliac bone of the pelvis, poss ibly related to donor site. Healed left 7th rib fracture noted. No obvious acute fractures. IMPRESSION: 1. There is atrophy of the left kidney which I suspect may be related to atherosclerotic disease in t he left renal artery. There is heavily calcified plaque in the proximal 1.7 cm of the left renal art celso. Similar calcification is not seen in the right renal artery and the right kidney exhibits silvia l size. 2. Heavily calcified abdominal aorta exhibiting taste see and mild lower abdominal aorta aneurysm wit h maximum diameter 2.7 cm. Although there are no aneurysm of the iliac arteries, these vessels are h eavily calcified indicating significant atherosclerotic involvement. Recommend feeling for groin pul ses. 3. Appearance of the lateral aspect of the right iliac bone is that of possible prior donor site. Th ere is also relative atrophy of the adjacent ipsilateral gluteus medius and minimus muscles. 4. Constipation. There is also an element of interposition of right-side of the colon between the r ight hepatic lobe and right anterior abdominal wall. RADIATION DOSE DELIVERED: 1,001.7mGy.cm Total DLP DATA REPOSITORY: All CT scans at this facility are submitted to the National Radiology Data Registry (NRDR) Dose Index Registry (DIR) with the [employer] (ACR). RADIATION OPTIMIZATION: All CT scans at this facility use at least one of these dose optimization te chniques: automated exposure control; mA and/or kV adjustment per patient size (includes targeted exa ms where dose is matched to clinical indication); or iterative reconstruction.
[2022-09-29 16:05] LABS: Bilirubin Negative (Negative); Blood Negative (Negative); Clarity Clear (Clear); Glucose Negative (Negative); Ketones Negative (Negative); Leukocyte Esterase Negative (Negative); Nitrite Negative (Negative); Specific Gravity 1.015 (1.005-1.025); Urobilinogen 0.2 mg/dL (Up to 0.2)
[2022-09-29 16:18] LABS: WBC Negative HPF (0-5)
[2022-09-29 16:19] LABS: Bacteria Negative HPF (Negative); C & S Indicated? No; Casts 0-2 Hyaline LPF (Negative); Crystals Negative HPF (Negative); Epithelial Cells Rare HPF (Negative); Mucus Negative (Negative); RBC 0-2 HPF (0-2)
--- NOTE | 2022-09-29 16:25 | DI.VRAD_ITS ---
PROCEDURE INFORMATION: Exam: CT Abdomen And Pelvis Without Contrast Exam date and time: 09/29/2022 4:01 PM Age: 71 years old Clinical indication: Other: Abd pain TECHNIQUE: Imaging protocol: Computed tomography of the abdomen and pelvis without contrast. Radiation optimization: All CT scans at this facility use at least one of these dose optimization techniques: automated exposure control; mA and/or kV adjustment per patient size (includes targeted exams where dose is matched to clinical indication); or iterative reconstruction. COMPARISON: CT CHEST/ABD/PEL W 09/18/2018 9:34 PM FINDINGS: Lungs: There is mild right lower lobe atelectasis. Coronary arteries: Coronary artery calcifications/stents identified. Liver: See Stomach and bowel finding. Gallbladder and bile ducts: Normal. No calcified stones. No ductal dilation. Pancreas: Normal. No ductal dilation. Spleen: Normal. No splenomegaly. Adrenal glands: Normal. No mass. Kidneys and ureters: Left renal atrophy. Stomach and bowel: Incidental note made of anterior interpositioning of the colon with respect to the liver. Appendix: The appendix is well seen, within normal limits. Intraperitoneal space: Unremarkable. No free air. No significant fluid collection. Vasculature: Severe atherosclerotic change present in the vasculature. Iliac artery occlusions bilaterally are not excludable on the basis of appearance. Lymph nodes: Unremarkable. No enlarged lymph nodes. Urinary bladder: Unremarkable as visualized. Reproductive: Unremarkable as visualized. Bones/joints: Unremarkable. No acute fracture. Soft tissues: There is bilateral gynecomastia. Other findings: Significant fecal retention pattern. IMPRESSION: No evidence for acute abnormality. Mild constipated changes noted. Dictated and Authenticated by: Alix Rainey MD. Ordering:DANYEL Beckett MD
[2022-09-29 17:40] LABS: Troponin I < 50 ng/L (<or=60)
== END 2022-09-29 18:24 | disposition home or self-care (01) ==
PROVIDERS: Emergency Provider Emergency Medicine; PCP Internal Medicine Geriatric Medicine
DX: R22.43 Localized swelling, mass and lump, lower limb, bilateral (principal); R05.9 Cough, unspecified; I25.10 Atherosclerotic heart disease of native coronary artery without angina pectoris; I10 Essential (primary) hypertension; J44.9 Chronic obstructive pulmonary disease, unspecified; K59.00 Constipation, unspecified; N26.1 Atrophy of kidney (terminal); Z87.820 Personal history of traumatic brain injury; Z79.82 Long term (current) use of aspirin; Z79.899 Other long term (current) drug therapy
CPT/HCPCS: 36415; 80053; 93005; 94640; 96374; 99285; 71046; 74176; 81003; 81015; 83880; 84484; 85025; 93010; 99284; J1941; J7620

== ENCOUNTER 2022-10-20 19:53 | Inpatient (IN) | payer OTHER, SELFPAY ==
[2022-10-20] VITALS (40 sets, daily range): BP systolic 126–169; BP diastolic 53–134; PULSE 76–99; RESP 15–23; TEMP 36.5; O2SAT 90–97
--- NOTE | 2022-10-20 19:45 | RT.EKG_ITS ---
APPROVED REPORT Exam: Resting ECG Reason for Exam: AM Patient Location: E HR:81 bpm ECG Measurements Heart Rate 81 AXIS PA 169 P 70 QRSd 94 QRS 25 QT 392 T 65 QTc 456 Conclusion Sinus rhythm...normal P axis, V-rate 60- 99 Anteroseptal infarct, old...Q >40mS, V1-V2 Borderline ST depression, diffuse leads...ST <-0.07mV, ant/lat/inf new st depressions
--- NOTE | 2022-10-20 20:00 | DI.CT_ITS ---
Exam(s) CT HEAD WO EXAM: CT HEAD WO CLINICAL HISTORY: ams. TECHNIQUE: Imaging Protocol: Axial computed tomography images with coronal and sagittal reformatted images were created and reviewed COMPARISON: No exams were available for comparison FINDINGS: Ventricles and Extra axial spaces: Normal in size and morphology for the patient's age. Hemorrhage: None. Cerebral parenchyma: There is again seen an area of encephalomalacia involving the left occipital lob e. There are areas of decreased attenuation in the white matter consistent with small vessel ischemi c disease. No acute territorial infarct is identified. Midline shift: None. Brainstem/Cerebellum: Normal. Calvarium: Normal. Visualized Paranasal sinuses/Mastoids: Clear. Soft Tissues: Unremarkable. IMPRESSION: No acute intracranial process. RADIATION DOSE DELIVERED: 745.27mGy.cm Total DLP DATA REPOSITORY: All CT scans at this facility are submitted to the National Radiology Data Registry (NRDR) Dose Index Registry (DIR) with the [employer] (ACR). RADIATION OPTIMIZATION: All CT scans at this facility use at least one of these dose optimization te chniques: automated exposure control; mA and/or kV adjustment per patient size (includes targeted exa ms where dose is matched to clinical indication); or iterative reconstruction.
--- NOTE | 2022-10-20 20:14 | DI.RAD_ITS ---
Exam(s) XR CHEST 2V PA LATERAL EXAM: XR CHEST 2V PA LATERAL CLINICAL HISTORY: sob, hypoxia, copd TECHNIQUE: 2D digital imaging was performed of the chest. Images were obtained. PA and lateral v iews were obtained. COMPARISON: CR,XR XR CHEST 2V PA LATERAL from 09/29/2022 FINDINGS: There is poor inspiration. This makes accentuate the level of decreased volume in the right lung sec ondary to the elevated diaphragm. MEDIASTINUM: Normal. HEART: Normal. PULMONARY VASCULATURE: Normal. LUNGS: Clear. PLEURAL SPACE: No pleural effusion or pneumothorax. BONE:Within normal limits for the patient's age. OTHER FINDINGS:There is elevation of the right hemidiaphragm again seen. IMPRESSION: No acute pulmonary findings. DATA REPOSITORY: RADIATION DOSE DELIVERED:
[2022-10-20 20:18] LABS: Abs Immature Grans 0.33 10^3/uL (0.0-0.06); Absolute Basophil Count 0.06 10^3/uL (0.0-0.2); Absolute Eosinophil Count 0.06 10^3/uL (0.0-0.7); Basophils % 0.4; Eosinophils % 0.4; HCT 41.6 % (40.0-50.0); HGB 14.1 g/dL (13.5-17.5); Immature Grans % 2.4; Lymphocytes % 13.3; MCH 29.9 pg (27.0-33.0); MCHC 33.9 % (32.0-36.0); MCV 88 fL (80-95); Monocytes % 8.6; Neutrophils % 74.9; RBC 4.71 10^6/uL (4.36-5.78); RDW 14.7 % (11.8-14.1); WBC 13.79 10^3/uL (4.4-10.8)
--- NOTE | 2022-10-20 20:23 | ED.GENADUL_ITS ---
Discharge Plan Disposition Patient Disposition: Admit to [facility] Discharge Details Chief Complaint: AMS/LOC Clinical Impression: COPD with exacerbation, Hypoxia Primary Care Provider: Cierra Albright ED Provider: Checo Arreguin Home Meds and New Rx's Prescriptions: No Action albuterol sulfate 90 mcg/actuation Hfa Aerosol Inhaler 2 puff INHALATION Q6H PRN aspirin 325 mg Tablet 325 mg PO DAILY amlodipine 5 mg Tablet 10 mg PO DAILY Qty: 60 0RF budesonide-formoterol [Symbicort] 160-4.5 mcg/actuation Hfa Aerosol Inhaler 2 puff inhalation BID Qty: 6 1RF Patient Comments: Pt's caregiver states, he has not been using his inhalers lately. ML 09/29/22 acetaminophen 500 mg tablet 500 mg PO Q8H PRN (Reason: pain) Qty: 60 3RF levothyroxine 25 mcg tablet 50 mcg PO DAILY Patient Comments: TAKE 1 TABLET BY MOUTH EVERY DAY omeprazole 20 mg Capsule,Delayed Release(Dr/Ec) 20 mg PO DAILY atorvastatin 20 mg tablet 40 mg PO DAILY guaifenesin 600 mg tablet extended release 12hr 600 mg PO BID famotidine 20 mg Tablet 20 mg PO BID Patient Comments: Pt's caregiver states he is not currently taking - ML 09/29/22 metoprolol succinate 100 mg tablet extended release 24 hr 100 mg PO DAILY Rx Instructions: takes with 50 mg tab for dose of 150 mg daily spironolactone 50 mg Tablet 25 mg PO DAILY polyethylene glycol 3350 [Miralax] 17 gram/dose powder 17 g PO DAILY PRN (Reason: constipation) Medical Decision Making 71-year-old male history of COPD, coronary disease, recent diagnosis of diabetes presents brought in by EMS after family called for lethargy and decreased SPO2 at home, recently started on azithromycin. Patient alert to self however not to situation place or time. Hemodynamically stable afebrile nontoxic, 97% on supplemental oxygen, speaking in full sentences or appears mildly tachypneic consider viral illness versus pneumonia versus COPD exacerbation low suspicion for PE must consider ACS given EKG which shows some ST depressions laterally; will obtain CT head chest x-ray EKG, labs, urinalysis COVID swab, nebs steroids will administer aspirin if CT returns negative for intracranial hemorrhage. Disposition pending reassessment and results 22: 27 mental status greatly improved per reassessment and family. Attempted to down titrate nasal cannula patient drops to 84% on room air. Given wet cough worsening hypoxia will treat empirically for pneumonia. COVID swab still pending. Patient does not use home O2. Will need admission for oxygen therapy, continue antibiotics and home oxygen coordination HPI General Date/Time Provider Initiated Documentation: 10/20/22 20:01 . HPI Narrative: 71-year-old male history of COPD, coronary disease, brought in by EMS after family called for altered mental status and decreased oxygen saturation as low as the 70s at home, had recently been started on antibiotic; patient alert to self however not to situation, denies any current complaints. Patient recently diagnosed with diabetes Related Data Home Medications Medication Instructions Recorded Confirmed albuterol sulfate 90 mcg/actuation 2 puff inhalation Q6H PRN 03/05/18 10/20/22 aerosol inhaler aspirin 325 mg tablet 325 mg PO DAILY 09/18/18 10/20/22 amlodipine 5 mg tablet 10 mg PO DAILY #60 tabs 09/20/18 10/20/22 budesonide-formoterol HFA 160 2 puff inhalation BID #6 grams 09/20/18 10/20/22 mcg-4.5 mcg/actuation aerosol inhaler (Symbicort) acetaminophen 500 mg tablet 500 mg PO Q8H PRN pain #60 tabs 10/09/18 10/20/22 famotidine 20 mg tablet 20 mg PO BID 01/29/21 10/20/22 metoprolol succinate 100 mg 100 mg PO DAILY 01/29/21 10/20/22 tablet,extended release 24 hr atorvastatin 20 mg tablet 40 mg PO DAILY 11/06/21 10/20/22 guaifenesin 600 mg tablet, 600 mg PO BID 11/06/21 10/20/22 extended release 12 hr levothyroxine 25 mcg tablet 50 mcg PO DAILY 11/06/21 10/20/22 omeprazole 20 mg capsule,delayed 20 mg PO DAILY 11/06/21 10/20/22 release spironolactone 50 mg tablet 25 mg PO DAILY 01/23/22 10/20/22 polyethylene glycol 3350 17 17 g PO DAILY PRN constipation 09/29/22 10/20/22 gram/dose oral powder (Miralax) Previous Rx's Medication Instructions Recorded amlodipine 5 mg tablet 10 mg PO DAILY #60 tabs 09/20/18 budesonide-formoterol HFA 160 2 puff inhalation BID #6 grams 09/20/18 mcg-4.5 mcg/actuation aerosol inhaler (Symbicort) acetaminophen 500 mg tablet 500 mg PO Q8H PRN pain #60 tabs 10/09/18 Allergies Allergy/AdvReac Type Severity Reaction Status Date / Time clopidogrel [From Plavix] Allergy Unknown Unverified 10/20/22 20:27 simvastatin Allergy Unknown Unverified 10/20/22 20:27 General Stated Complaint: AMS/LOC JUSTINE: 3 Review of Systems Narrative: Review of Systems Constitutional: Fatigue Eyes: negative ENT: negative Cardiovascular: negative Respiratory: negative Gastrointestinal: negative : negative Musculoskeletal: negative Skin: negative Neurologic: AMS Psych: negative PFSH All Active Problems (Updated 10/20/22 @ 22:29 by Checo Arreguin MD) COVID (Acute) Edema (Acute) COPD with exacerbation (Acute) Hypoxia (Acute) Syncope (Chronic) Acute kidney injury (Acute) Goals of care, counseling/discussion (Acute) DNI (do not intubate) (Acute) DNR (do not resuscitate) (Acute) POLST (Physician Orders for Life-Sustaining Treatment) (Acute) DNR/DNI signed by pt and son(DPOA) 11/02/20 Retinal hemorrhage, right eye (Acute) 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) right hand/arm, following postop stroke Chronic post-traumatic stress disorder (PTSD) after combat (Chronic) apparent when delirious, hospitalized, stressed physically or mentally History of delusional disorder (Acute) when hospitalized, mentation deteriorates gets paranoid Postoperative stroke (Chronic) August 2020, following left CEA History of left-sided carotid endarterectomy (Acute) Left-sided carotid artery disease (Acute) 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) [facility] History of traumatic brain injury (Acute) Vascular dementia (Acute) Alcoholic dementia (Acute) History of smoking (Acute) Closed left radial fracture (Acute) s/p ORIF L distal radius 10/09/2018 Peripheral vascular disease of extremity with claudication (Acute) Hypertension (Chronic) COPD (chronic obstructive pulmonary disease) (Chronic) Diverticulitis large intestine (Acute) Pneumothorax, left (Acute) Left rib fracture (Acute) Medical History Abnormal gait Alcohol abuse Cataract Coronary artery disease Depression Erectile dysfunction Hepatitis C treated with Ribavirin and interferon. PCR qual neg 11/1999 Impaired cognition Memory loss Palliative care patient Tobacco dependence quit 2019 Vitamin D deficiency Surgical History H/O right knee surgery Status post closed fracture of femur s/p repair Family History Son Diabetes Pancreatitis, acute Grandson No problems noted. Mother , age 95 from DM2 and heart disease Heart disease Diabetes Father , in his early 50s from etohism Alcohol use disorder Sister Colon cancer Granddaughter Substance use disorder Other Cancer Social History Smoking/Tobacco Use Status: Current every day Tobacco Type: cigarettes Tobacco: How many years used: 52 Second Hand Exposure: No Counseling given: provider counseling Smoking risk assessment performed?: Yes Alcohol Intake: current Alcohol Intake frequency: a few times a week Alcohol type: beer Counseling given: Yes Drug use: Daily Substance use type: marijuana Counseling given: No Caregiver/Support person: Yes Household members: family Housing: house Number of Children: 1 number of grandchildren: 3 Communication Needs: Hard of Hearing and Corrective Lenses Education Level: high school Do you need help understanding health information?: Always 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, [employer], 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 Pets and animals: Yes Current gender identity: male What is your relationship status?: How often do you talk on the phone with friends or family?: never How often do you get together with friends or relatives?: twice per week Panel score (0-1 are the most socially isolated patients): 0 What type of physical activity do you participate in: walking and sedentary lifestyle Duration: 15-30 minutes/day Special roslyn needs: No Agree to transfusion: No Seatbelt use: sometimes Helmet use: No Working smoke detector in home: Yes Fire extinguisher in home: Yes Do you feel safe at home: Yes Do you feel safe in your relationship?: Yes Exam Narrative Exam Narrative: Physical Examination General: awake, cooperative, resting comfortably, no acute distress HEENT: normocephalic, atraumatic; PERRL, EOM intact, conjunctiva normal; no nasal discharge; moist mucous membranes, oral and pharyngeal mucosa normal, tolerating secretions Neck: supple, trachea midline; full ROM Chest: normal to inspection Respiratory: normal respiratory effort, speaking in full sentences, clear to auscultation, no wheezing, rales or rhonchi Cardiac: regular rate, regular rhythm, S1S2 intact, no murmurs rubs or gallops GI: abdomen soft, non-tender, non-distended; no palpable mass or hepatosplenomegaly Skin: no lesions, rashes or trauma appreciated Neuro: Alert to self not to place or situation or time Psych: Appropriate mood and affect Course Vital Signs Vital signs: Vital Signs Temperature 36.5 C 10/20/22 19:51 Pulse 82 10/20/22 19:51 Respiratory Rate 20 10/20/22 19:51 Blood Pressure 137/71 10/20/22 19:51 Pulse Oximetry 92 10/20/22 19:51 Temperature 36.5 C 10/20/22 19:51 Temperature Source Temporal Artery Scan 10/20/22 19:51 Pulse 82 10/20/22 19:51 Respiratory Rate 20 10/20/22 19:51 Respiratory Effort Incrsd Work of Breathing 10/20/22 19:57 Blood Pressure 137/71 10/20/22 19:51 Pulse Oximetry 92 10/20/22 19:51 Oxygen Delivery Method Nasal Cannula 10/20/22 19:51 Oxygen Flow Rate 3 10/20/22 19:51 Pain Level 0 10/20/22 19:51
[2022-10-20 20:24] LABS: Absolute Lymphocyte Count 1.83 10^3/uL (1.2-3.4); Absolute Monocyte Count 1.19 10^3/uL (0.1-0.8); Absolute Neutrophil Count 10.33 10^3/uL (1.2-6.7)
[2022-10-20] MEDS: Albuterol/Ipratropium 3 ML UPD VIAL UPD (20:24)
[2022-10-20] MEDS: Normal Saline 500 ML 1000 ML IV (20:25)
[2022-10-20] MEDS: Dexamethasone 10 MG/ML VIAL IVP (20:26)
[2022-10-20 20:40] LABS: ALT 23 U/L (16-63); AST 19 U/L (15-37); Alkaline Phosphatase 107 U/L (46-116); BUN 29 mg/dL (7-18); Bilirubin, Total 0.5 mg/dL (0.2-1.0); CREATININE 2.1 mg/dL (0.70-1.30); Calcium 8.9 mg/dL (8.5-10.1); Chloride 99 mmol/L (98-107); Estimated GFR 32.83 (mL/min/1.73m2); Glucose 201 mg/dL (74-106); Magnesium 2.3 mg/dL (1.8-2.4); Potassium 3.8 mmol/L (3.5-5.1); Sodium 136 mmol/L (136-145); Total Protein 6.5 g/dL (6.4-8.2)
[2022-10-20 20:44] LABS: Troponin I 71 ng/L (<or=60)
[2022-10-20 20:54] LABS: Diff Comment PLT Morph Reviewed; RBC Morphology Normal
--- NOTE | 2022-10-20 21:35 | DI.VRAD_ITS ---
PROCEDURE INFORMATION: Exam: XR Chest Exam date and time: 10/20/2022 8:57 PM Age: 71 years old Clinical indication: Other: SOB, hypoxia, copd TECHNIQUE: Imaging protocol: Radiologic exam of the chest. Views: 2 views. COMPARISON: CR XR CHEST 2V PA LATERAL 09/29/2022 2:49 PM FINDINGS: Lungs: Decreased volume of the right lung is secondary to prominent elevation of the right lung, worsened since the prior examination. No evidence of significant consolidation. Pleural spaces: No pleural effusion. No pneumothorax. Heart/Mediastinum: No cardiomegaly. Diaphragm: There is redemonstration of prominent elevation of the right hemidiaphragm with the hepatic flexure of the colon in this region. Bones/joints: Unremarkable. IMPRESSION: 1. Interval worsening of decreased right lung volume secondary to elevation of the right hemidiaphragm. 2. No significant consolidation. Dictated and Authenticated by: Sophie Shah MD. Ordering:ARIAS Kessler MD
--- NOTE | 2022-10-20 21:37 | DI.VRAD_ITS ---
PROCEDURE INFORMATION: Exam: CT Head Without Contrast Exam date and time: 10/20/2022 8:44 PM Age: 71 years old Clinical indication: AMS TECHNIQUE: Imaging protocol: Computed tomography of the head without contrast. COMPARISON: CT HEAD WO 01/23/2022 7:18 PM FINDINGS: Brain: There is no acute intracranial hemorrhage, mass effect or midline shift. No large acute territorial infarct identified. There are patchy regions of hypodensity in the periventricular and subcortical white matter, likely on the basis of chronic microvascular ischemic disease. There is a region of encephalomalacia in the left occipital lobe, likely from remote infarct. Dural thickening again noted along the cerebral falx. Cerebral ventricles: The ventricles and sulci are prominent in size, which is at least in part due to global cerebral volume loss. Paranasal sinuses: Visualized sinuses are unremarkable. No fluid levels. Mastoid air cells: Visualized mastoid air cells are well aerated. Bones/joints: Unremarkable. No acute fracture. Soft tissues: Unremarkable. IMPRESSION: No acute intracranial hemorrhage, mass effect or midline shift. Dictated and Authenticated by: Sophie Shah MD. Ordering:ARIAS Kessler MD
[2022-10-20 21:54] LABS: COVID-19 PCR Negative (Negative); Influenza A PCR Negative (Negative); Influenza B PCR Negative (Negative); RSV PCR Negative (Negative)
[2022-10-20 21:56] LABS: Source NASOPHARYNX
[2022-10-20] MEDS: cefTRIAXone 1 GM/50 ML BAG IVPB (22:01)
[2022-10-20] MEDS: AZITHROMYCIN 500 MG in Normal Saline 250 ML 250 MG IVPB (22:05)
--- NOTE | 2022-10-20 22:46 | HPE_ITS ---
Date of service: 10/20/22 Time of Service: 22:47 Assessment and Plan Assessment and plan (1) COPD with exacerbation: Status: Acute Assessment and plan: COPD exacerbation. I don't see much to suggest LRI, can probably manage with monotherapy antibiotics, even possibly oral, but will continue Rocephin as is for now. Will also continue nebs and steroids, along with supplemental O2 as needed. The marginal trop is more likely demand ischemia, but the EKG changes need to be reassessed and could indicate NSTEMI. Will repeat EKG and await follow up troponin. Per latest notes will remain DNR. History of Present Illness History of Present Illness Chief Complaint: lethargy Narrative: 71 male with COPD -- comes in with unspecified period of lethargy per family (patient unable to supply history). Report is that EMS found O2 sats 702 and 80s. On arrival ER reports diffuse rhonchi. After duonebs and steroids patient reported to be far more alert. Sats low 90s on 3L but drop to 80s on RA. Also noted is inferolateral ST depressions with marginal troponin of 71. Patient denies CP. Repeat trop is pending at this time. CXR shows known elevation of right hemidiaphragm but no significant consolidation (I see none myself). Patient given doses of Rocephin and Zithroma x. I was asked to evaluate for admission. Patient states he feels fine at present but is unable to provide any further details about events leading to ER visit. 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) right hand/arm, following postop stroke Chronic post-traumatic stress disorder (PTSD) after combat (Chronic) apparent when delirious, hospitalized, stressed physically or mentally History of delusional disorder (Acute) when hospitalized, mentation deteriorates gets paranoid Postoperative stroke (Chronic) August 2020, following left CEA History of left-sided carotid endarterectomy (Acute) Left-sided carotid artery disease (Acute) 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) [facility] History of traumatic brain injury (Acute) Vascular dementia (Acute) Alcoholic dementia (Acute) History of smoking (Acute) Closed left radial fracture (Acute) s/p ORIF L distal radius 10/09/2018 Peripheral vascular disease of extremity with claudication (Acute) Hypertension (Chronic) COPD (chronic obstructive pulmonary disease) (Chronic) Diverticulitis large intestine (Acute) Pneumothorax, left (Acute) Left rib fracture (Acute) Medical History Abnormal gait Alcohol abuse Cataract Coronary artery disease Depression Erectile dysfunction Hepatitis C treated with Ribavirin and interferon. PCR qual neg 11/1999 Impaired cognition Memory loss Palliative care patient Tobacco dependence quit 2019 Vitamin D deficiency Surgical History H/O right knee surgery Status post closed fracture of femur s/p repair Family History Son Diabetes Pancreatitis, acute Grandson No problems noted. Mother , age 95 from DM2 and heart disease Heart disease Diabetes Father , in his early 50s from etohism Alcohol use disorder Sister Colon cancer Granddaughter Substance use disorder Other Cancer Social History Smoking/Tobacco Use Status: Current every day Tobacco Type: cigarettes Tobacco: How many years used: 52 Second Hand Exposure: No Counseling given: provider counseling Smoking risk assessment performed?: Yes Alcohol Intake: current Alcohol Intake frequency: a few times a week Alcohol type: beer Counseling given: Yes Drug use: Daily Substance use type: marijuana Counseling given: No Caregiver/Support person: Yes Household members: family Housing: house Number of Children: 1 number of grandchildren: 3 Communication Needs: Hard of Hearing and Corrective Lenses Education Level: high school Do you need help understanding health information?: Always 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, [employer], 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 Pets and animals: Yes Current gender identity: male What is your relationship status?: How often do you talk on the phone with friends or family?: never How often do you get together with friends or relatives?: twice per week Panel score (0-1 are the most socially isolated patients): 0 What type of physical activity do you participate in: walking and sedentary lifestyle Duration: 15-30 minutes/day Special roslyn needs: No Agree to transfusion: No Seatbelt use: sometimes Helmet use: No Working smoke detector in home: Yes Fire extinguisher in home: Yes Do you feel safe at home: Yes Do you feel safe in your relationship?: Yes Meds Allergies and Home Medications Allergies Allergy/AdvReac Type Severity Reaction Status Date / Time clopidogrel [From Plavix] Allergy Unknown Unverified 10/20/22 20:27 simvastatin Allergy Unknown Unverified 10/20/22 20:27 Home Medications Medication Instructions Recorded Confirmed Type albuterol sulfate 90 mcg/actuation 2 puff inhalation Q6H PRN 03/05/18 10/20/22 History aerosol inhaler aspirin 325 mg tablet 325 mg PO DAILY 09/18/18 10/20/22 History amlodipine 5 mg tablet 10 mg PO DAILY #60 tabs 09/20/18 10/20/22 Rx budesonide-formoterol HFA 160 2 puff inhalation BID #6 grams 09/20/18 10/20/22 Rx mcg-4.5 mcg/actuation aerosol inhaler (Symbicort) acetaminophen 500 mg tablet 500 mg PO Q8H PRN pain #60 tabs 10/09/18 10/20/22 Rx famotidine 20 mg tablet 20 mg PO BID 01/29/21 10/20/22 History metoprolol succinate 100 mg 100 mg PO DAILY 01/29/21 10/20/22 History tablet,extended release 24 hr atorvastatin 20 mg tablet 40 mg PO DAILY 11/06/21 10/20/22 History guaifenesin 600 mg tablet, 600 mg PO BID 11/06/21 10/20/22 History extended release 12 hr levothyroxine 25 mcg tablet 50 mcg PO DAILY 11/06/21 10/20/22 History omeprazole 20 mg capsule,delayed 20 mg PO DAILY 11/06/21 10/20/22 History release spironolactone 50 mg tablet 25 mg PO DAILY 01/23/22 10/20/22 History polyethylene glycol 3350 17 17 g PO DAILY PRN constipation 09/29/22 10/20/22 History gram/dose oral powder (Miralax) Exam Narrative Exam Narrative: 165/60, 81, 36.5, 16, 93% 3L. HEENT atraumatic; neck supple; lungs diminished with diffuse soft wheeze and rhonchi; heart distant, RRR; abdomen soft and NT; extremities w/o edema; neuro Ox34, moves all 4s Results Labs 10/20/22 20:10 10/20/22 20:10 Labs: Laboratory Results - last 24 hr 10/20/22 10/20/22 10/20/22 20:10 20:10 20:33 WBC 13.79 H RBC 4.71 Hgb 14.1 Hct 41.6 MCV 88 MCH 29.9 MCHC 33.9 RDW 14.7 H Plt Count MPV Immature Gran % 2.4 Neutrophils % 74.9 Lymphocytes % 13.3 Monocytes % 8.6 Eosinophils % 0.4 Basophils % 0.4 Nucleated RBC % 0.0 Absolute Neutrophils 10.33 H Absolute Lymphocytes 1.83 Absolute Monocytes 1.19 H Absolute Eosinophils 0.06 Absolute Basophils 0.06 RBC Morphology Normal Sodium 136 Potassium 3.8 Chloride 99 Carbon Dioxide 27.0 Anion Gap 10.0 BUN 29 H Creatinine 2.1 H Est GFR (CKD-EPI 2020) 32.83 Glucose 201 H Calcium 8.9 Magnesium 2.3 Total Bilirubin 0.5 AST 19 ALT 23 Alkaline Phosphatase 107 Troponin I 71 H* Total Protein 6.5 Albumin 3.0 L COVID-19 Source NASOPHARYNX SARS-CoV-2 (PCR) Negative Influenza Type A (PCR) Negative Influenza Type B (PCR) Negative RSV (PCR) Negative Last Vital Signs Temp 36.5 C 10/20/22 19:51 Pulse 81 10/20/22 22:01 Resp 16 10/20/22 22:10 BP 165/60 H 10/20/22 22:01 Pulse Ox 93 10/20/22 22:10 Time Spent Time spent with Patient: 40-54 minutes Time was spent: preparing to see the patient(eg.review tests), obtaining and/or reviewing separately otained hiistory, ordering medications,tests, procedures, referring, communicating with other health animal care provider and indepentently interpreting results
--- NOTE | 2022-10-20 23:00 | RT.EKG_ITS ---
APPROVED REPORT Exam: Resting ECG Reason for Exam: repeat Patient Location: E HR:89 bpm ECG Measurements Heart Rate 89 AXIS WI 204 P 62 QRSd 99 QRS -17 QT 409 T [id number] QTc 499 Conclusion Sinus rhythm...normal P axis, V-rate 60- 99 Anteroseptal infarct, old...Q >40mS, V1-V2 ST depression, consider ischemia, lateral lds...ST <-0.10mV, I aVL V5 V6 sinus rhythm, left axis, st depressions inferior lateral leads
[2022-10-20 23:44] LABS: Troponin I 68 ng/L (<or=60)
[2022-10-21] VITALS (36 sets, daily range): BP systolic 123–208; BP diastolic 58–88; PULSE 68–100; RESP 1–22; TEMP 35.8–36.9; O2SAT 90–97
[2022-10-21] MEDS: methylPREDNISolone SUCC 40 MG VIAL IVP (02:09)
[2022-10-21] MEDS: Albuterol/Ipratropium 3 ML UPD VIAL UPD ×4 (02:12→19:14)
[2022-10-21 04:09] LABS: Bilirubin Negative (Negative); Blood Trace-intact (Negative); Clarity Clear (Clear); Glucose 500 mg/dL (Negative); Ketones Negative (Negative); Leukocyte Esterase Negative (Negative); Nitrite Negative (Negative)
[2022-10-21 04:24] LABS: Bacteria Few HPF (Negative); C & S Indicated? No; Casts 0-2 Hyaline LPF (Negative); Crystals Negative HPF (Negative); Epithelial Cells Rare HPF (Negative); Mucus Negative (Negative); RBC 0-2 HPF (0-2); WBC 0-2 HPF (0-5)
[2022-10-21] MEDS: Levothyroxine 25 MCG TAB 50 MCG PO (05:58)
[2022-10-21 06:14] LABS: Abs Immature Grans 0.24 10^3/uL (0.0-0.06); Absolute Basophil Count 0.02 10^3/uL (0.0-0.2); Absolute Lymphocyte Count 0.35 10^3/uL (1.2-3.4); Absolute Neutrophil Count 14.25 10^3/uL (1.2-6.7); Basophils % 0.1; HCT 36.6 % (40.0-50.0); HGB 12.3 g/dL (13.5-17.5); Immature Grans % 1.6; Lymphocytes % 2.3; MCH 29.7 pg (27.0-33.0); MCHC 33.6 % (32.0-36.0); MCV 88 fL (80-95); MPV 9.3 fL (8.0-11.0); Monocytes % 1.7; Neutrophils % 94.3; Platelet Count 229 10^3/uL (130-400); RBC 4.14 10^6/uL (4.36-5.78); RDW 14.6 % (11.8-14.1); RDW-SD 47.2 fL; WBC 15.11 10^3/uL (4.4-10.8)
[2022-10-21 06:18] LABS: Absolute Monocyte Count 0.26 10^3/uL (0.1-0.8)
[2022-10-21 06:29] LABS: Hemoglobin A1C 8.9 % (<5.7)
[2022-10-21 06:34] LABS: Troponin I 54 ng/L (<or=60)
[2022-10-21 06:37] LABS: ALT 23 U/L (16-63); AST 15 U/L (15-37); Albumin 2.6 g/dL (3.4-5.0); Alkaline Phosphatase 93 U/L (46-116); Anion Gap 10.4 mmol/L (3-11); BUN 32 mg/dL (7-18); Bilirubin, Total 0.3 mg/dL (0.2-1.0); CO2 24.6 mmol/L (21.0-32.0); CREATININE 2.1 mg/dL (0.70-1.30); Calcium 8.6 mg/dL (8.5-10.1); Chloride 99 mmol/L (98-107); Estimated GFR 32.83 (mL/min/1.73m2); Glucose 410 mg/dL (74-106); Potassium 3.9 mmol/L (3.5-5.1); Sodium 134 mmol/L (136-145); Total Protein 5.8 g/dL (6.4-8.2)
--- NOTE | 2022-10-21 07:35 | RESPIRATORY ---
Addendum entered by Jason Tran 10/21/22 15:16: Score of 6, protocol for RT to reassess in 48 hours. Original Note: RT Assessment Start: 10/21/22 01:53 Freq: .q shift and prn Status: Active Protocol: Document 10/21/22 02:17 RT.HOSM (Rec: 10/21/22 02:26 RT.HOSM [id number]) RT Assessment Pulmonary History Pulmonary History COPD Smoking History Smoking/Tobacco Use Status Current every day Tobacco: How many years used 55 Tobacco Type cigarettes Packs per Day 1 Cigarettes per Day 28 Years smoked 55 Smoking packs per day 1 OXYGEN HISTORY: Current Respiratory Symptoms Current Respiratory Symptoms Wheezing Activity Activity Level Walk around house, to the bathroom Respiratory Breath Sounds Breath Sounds Faint wheezing or rhonci, decreased sounds throughout Response Significant response, improvement in breath sounds, increase peak flow Pulse Rate <100 Respiratory Rate 18-25 Shortness of Breath On exertion Respiratory Therapy Score Total 6 Assessment and Plan RT Treatment Protocol Bronchodilator Aerosol Therapy Protocol,Lung Expansion Therapy Protocol
[2022-10-21] MEDS: Aspirin 325 MG TAB PO (08:50)
[2022-10-21] MEDS: Atorvastatin 40 MG TAB PO (08:50)
[2022-10-21] MEDS: Metoprolol CR 100 MG TABCR PO (08:50)
[2022-10-21] MEDS: predniSONE 20 MG TAB 40 MG PO (08:50)
[2022-10-21] MEDS: amLODIPine 10 MG TAB PO (08:50)
[2022-10-21] MEDS: Spironolactone 25 MG TAB PO (08:50)
[2022-10-21] MEDS: Omeprazole 20 MG CAPCR PO (08:51)
[2022-10-21] MEDS: guaiFENesin 600 MG TABCR PO ×3 (08:51→21:19)
[2022-10-21] MEDS: Normal Saline Flush 10 ML SYR IVP ×4 (08:51→21:20)
--- NOTE | 2022-10-21 09:12 | PT.INIE ---
Date of service: 10/21/22 Time of Service: 08:50 PT Notes Visit Reasons: COPD Inpatient Physical Therapy Evaluation Date: October 21, 2022 Referring Doctor: Portillo Post PT Orders: PT CONSULT: exacerbation chronic condition Precautions: Standard, Falls Patient Profile/Admitting Diagnosis: Fred is a 71-year-old male with history of COPD, coronary disease, recent diagnosis of diabetes presented to ED yesterday via EMS after family called for lethargy and decreased SPO2 at home. 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) right hand/arm, following postop strokeChronic post-traumatic stress disorder (PTSD) after combat (Chronic) apparent when delirious, hospitalized, stressed physically or mentallyHistory of delusional disorder (Acute) when hospitalized, mentation deteriorates gets paranoidPostoperative stroke (Chronic) August 2020, following left CEAHistory of left-sided carotid endarterectomy (Acute) Left-sided carotid artery disease (Acute) 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 Abnormal gait Alcohol abuse Cataract Coronary artery disease Depression Erectile dysfunction Hepatitis C treated with Ribavirin and interferon. PCR qual neg 11/1999Impaired cognition Memory loss Palliative care patient Tobacco dependence quit 2019Vitamin D deficiency Surgical History? H/O right knee surgery Status post closed fracture of femur s/p repair Social History/Home Situation: Lives in a private home with his son and his girlfriend. Evert notes that his son's girlfriend takes good care of him doing all of the housework, laundry and providing him meals. He does not drive anymore. He has 3 steps to enter home. Does not have a shower chair however does have grab bars in shower. Notes that he takes a very quick shower for feels unsteady. Current Functional Limitations: decreased activity tolerance, SOB, decreased mobility, limited walking tolerance. Has utilized a FWW for quite some time Equipment Owned/DME: FWW Subjective: Fred sitting up in bed noting overall improvement with use of oxygen for his breathing. Remains very tired for did not get a lot of rest yesterday with hospital admission. Objective: General Observation: IV access R UE, telemetry, O2 3 liters via nasal canula Mental Status: Evert is alert and oriented x3 this morning Pain: Declines any pain ROM: Right Upper Extremity: Demonstrates WFL AROM R UE Left Upper Extremity: Demonstrates WFL AROM L UE Right Lower Extremity: Hip flexion tolerable to 100 degrees, abduction 35 degrees, knee flexion/ knee extension WFL, DF/PF significantly limited Left Lower Extremity: Hip flexion tolerable to 100 degrees, abduction 30 degrees, knee flexion/extension WFL, limited ankle DF/PF Strength: Right Upper Extremity: Shoulder flexion 4+/5, abduction 4/5, ER 4/5, Bicep 4+/5 good functional grasp Left Upper Extremity: Shoulder flexion 4+/5, abduction 4/5, ER 4/5, Bicep 4+/5, good functional grasp Right Lower Extremity: Hip flexion 4-/5, knee extension 4+/5, knee flexion 5/5, DF 4/5 Left Lower Extremity: Hip flexion 4-/5, knee extension 4+/5, knee flexion 5/5, DF 4/5 Bed Mobility/Transfers: Supine-sit: Independent Sit-supine: Independent Sit-stand: minAx1 with FWW proper cueing for hand placement Stand-sit: CGA with proper cueing for hand placement Gait: Patient refused at time of PT consult. Stated he was too tired and wanted to go back to bed. Balance: Static Sitting: Normal Dynamic Sitting: Normal Static Standing: Fair Dynamic Standing:Fair Special Tests: Mobility Limitations Standardized Measure [facility] AM-PAC 6 clicks Basic Mobility Inpatient Short Form: Raw Score: 18 CMS Score: 47% Informed Consent/Education: Patient instructed in purpose of PT consult and plan of care. Assessment: Patient is a 71 year old male referred to physical therapy services with the diagnosis of acute exacerbation of COPD. Patient presents with clinical signs and symptoms consistent with diagnosis, as demonstrated by the following impairment level findings: 1.? Decreased strength to LE major muscle groups 2.? Impaired standing balance 3.? Impaired activity tolerance 4. Impaired walking tolerance 5. SOB Impairments are contributing to the following functional limitations: 1.? Decline in bed mobility skills 2.? Decline in transfer skills 3.? Difficulty with ambulation without assistive device and physical assistance 4.? Increased completion time for mobility ADL performance 5.? Increased risk for falls 6.? Difficulty with managing steps alone safely Patient is assessed as a Moderate 75511 complexity based on the following: History: As above Examination: As above Presentation: Stable Decision Making: Moderate Goals: Goals X1 week 1. Supine-Sit Independent 2. Sit-Supine Independent 3. Sit-Stand Independent 4. Stand-Sit Independent 5. Bed-Chair Independent with FWW 6. Chair-Bed Independent with FWW 7. Gait - Independent with use of FWW 300 ft or greater without increased dyspnea 8. Stairs up/down 3 steps with use of railing 9. Independent with home exercise program 10. Demonstrate improved static/dynamic standing balance Plan of Care/Treatment Plan: 1-2x/day, 7 days/week x 1 week. Plan of care has been reviewed with the VENTILATED RIB FITTER providing the service under Physical Therapy direction. Initiate Physical Therapy intervention for strengthening, bed mobility, transfers, gait, stairs, balance training, use of assistive device. DISCHARGE RECOMMENDATIONS: Home with services Home Health PT/OT to promote improved functional mobility as well as to address need for further adaptive equipment in home Thank you for the opportunity to participate in the care of this patient. TREATMENT CODE/TIME: 84550, 25 minutes, 8:50 am [facility] Disclaimer: This note was created using [employer] voice recognition software. It was reviewed for major content. However, there may be multiple small discrepancies and errors due to the voice recognition aspects of the software.
[2022-10-21] MEDS: Insulin Aspart 300 UNITS/3 ML PEN SC ×3 (09:29→21:20)
--- NOTE | 2022-10-21 10:00 | RT.EKG_ITS ---
APPROVED REPORT Exam: Resting ECG Reason for Exam: elevated troponin Patient Location: I HR:75 bpm ECG Measurements Heart Rate 75 AXIS NV 197 P 30 QRSd 91 QRS -14 QT 418 T 38 QTc 467 Conclusion Sinus rhythm...normal P axis, V-rate 50- 99 Anteroseptal infarct, old...Q >40mS, V1-V2 Minimal ST depression, lateral leads...ST <-0.04mV, I aVL V5 V6
--- NOTE | 2022-10-21 10:19 | PGE_ITS ---
Date of Service Date of service: 10/21/22 Time of Service: 10:19 Assessment and Plan Assessment and plan (1) COPD with exacerbation: Status: Acute Assessment and plan: Continue nebs and steroids, along with supplemental O2 as needed. Ceftriaxone and azithromycin (2) Hypoxia: Status: Acute Assessment and plan: Oxygen saturations > 90% on 2 LPM since admission, continue oxygen, wean as appropriate (3) Acute kidney injury: Status: Acute Assessment and plan: Creatinine 2.1 - baseline 1.7 Uncontrolled htn (4) Vascular dementia: Status: Acute Assessment and plan: Behavior is appropriate, confused, but pleasant and cooperative (5) Hypertension: Status: Chronic Assessment and plan: Continue Sprironolactone and metoproplol and amlodipine HTN here, Lopressor 5 mg IV given with good results. Discussion with Dr Montalvo, Lisinopril 5 mg oral daily started (aware of Cr 2.1) Qualifiers: Hypertension type: essential hypertension Qualified Code(s): I10 - Essential (primary) hypertension (6) DVT prophylaxis: Status: Acute Assessment and plan: Enoxaparin (7) Discharge planning issues: Status: Acute Assessment and plan: Home when medically stable Lisinopril added to antihtn meds Subjective Subjective Patient reports: no new complaints, tolerating liquids well, tolerating a regular diet, voiding w/o difficulty, bowel movement and afebrile; denies diarrhea, nausea, vomiting or shortness of breath Exam Narrative Exam Narrative: Physical Examination General: awake, cooperative, resting comfortably, no acute distress HEENT: normocephalic, atraumatic; PERRL, EOM intact, conjunctiva normal; no nasal discharge; moist mucous membranes, oral and pharyngeal mucosa normal, tolerating secretions Neck: supple, trachea midline; full ROM Chest: normal to inspection Respiratory: normal respiratory effort, speaking in full sentences, clear to auscultation, no wheezing, rales or rhonchi Cardiac: regular rate, regular rhythm, S1S2 intact, no murmurs rubs or gallops GI: abdomen soft, non-tender, non-distended; no palpable mass or hepatosplenomegaly Skin: no lesions, rashes or trauma appreciated Neuro: Alert to self not to place or situation or time Psych: Appropriate mood and affect Objective Last Vital Signs Temp 36.9 C 10/21/22 07:31 Pulse 68 10/21/22 08:30 Resp 22 10/21/22 08:30 BP 172/80 H 10/21/22 07:25 Pulse Ox 97 10/21/22 09:18 Laboratory Results - last 24 hr 10/20/22 10/20/22 10/20/22 20:10 20:10 20:33 WBC 13.79 H RBC 4.71 Hgb 14.1 Hct 41.6 MCV 88 MCH 29.9 MCHC 33.9 RDW 14.7 H Plt Count MPV Immature Gran % 2.4 Neutrophils % 74.9 Lymphocytes % 13.3 Monocytes % 8.6 Eosinophils % 0.4 Basophils % 0.4 Nucleated RBC % 0.0 Absolute Neutrophils 10.33 H Absolute Lymphocytes 1.83 Absolute Monocytes 1.19 H Absolute Eosinophils 0.06 Absolute Basophils 0.06 RBC Morphology Normal Sodium 136 Potassium 3.8 Chloride 99 Carbon Dioxide 27.0 Anion Gap 10.0 BUN 29 H Creatinine 2.1 H Est GFR (CKD-EPI 2020) 32.83 Glucose 201 H Hemoglobin A1c Calcium 8.9 Magnesium 2.3 Total Bilirubin 0.5 AST 19 ALT 23 Alkaline Phosphatase 107 Troponin I 71 H* Total Protein 6.5 Albumin 3.0 L Urine Color Urine Clarity Urine pH Ur Specific [place] Urine Protein Urine Ketones Urine Blood Urine Nitrite Urine Bilirubin Urine Urobilinogen Ur Leukocyte Esterase Urine RBC Urine WBC Ur Epithelial Cells Urine Crystals Urine Bacteria Urine Casts Urine Mucus Ur Culture Indicated? Urine Glucose COVID-19 Source NASOPHARYNX SARS-CoV-2 (PCR) Negative Influenza Type A (PCR) Negative Influenza Type B (PCR) Negative RSV (PCR) Negative Add-On Test Request 10/20/22 10/21/22 10/21/22 23:15 03:48 05:58 WBC RBC Hgb Hct MCV MCH MCHC RDW Plt Count MPV Immature Gran % Neutrophils % Lymphocytes % Monocytes % Eosinophils % Basophils % Nucleated RBC % Absolute Neutrophils Absolute Lymphocytes Absolute Monocytes Absolute Eosinophils Absolute Basophils RBC Morphology Sodium Potassium Chloride Carbon Dioxide Anion Gap BUN Creatinine Est GFR (CKD-EPI 2020) Glucose Hemoglobin A1c Calcium Magnesium Total Bilirubin AST ALT Alkaline Phosphatase Troponin I 68 H* 54 Total Protein Albumin Urine Color Yellow Urine Clarity Clear Urine pH 6.0 Ur Specific [place] 1.020 Urine Protein >=300 H Urine Ketones Negative Urine Blood Trace-intact H Urine Nitrite Negative Urine Bilirubin Negative Urine Urobilinogen 1.0 H Ur Leukocyte Esterase Negative Urine RBC 0-2 Urine WBC 0-2 Ur Epithelial Cells Rare Urine Crystals Negative Urine Bacteria Few Urine Casts 0-2 Hyaline Urine Mucus Negative Ur Culture Indicated? No Urine Glucose 500 H COVID-19 Source SARS-CoV-2 (PCR) Influenza Type A (PCR) Influenza Type B (PCR) RSV (PCR) Add-On Test Request 10/21/22 10/21/22 10/21/22 05:58 05:58 05:58 WBC 15.11 H RBC 4.14 L Hgb 12.3 L Hct 36.6 L MCV 88 MCH 29.7 MCHC 33.6 RDW 14.6 H Plt Count 229 MPV 9.3 Immature Gran % 1.6 Neutrophils % 94.3 Lymphocytes % 2.3 Monocytes % 1.7 Eosinophils % 0.0 Basophils % 0.1 Nucleated RBC % 0.0 Absolute Neutrophils 14.25 H Absolute Lymphocytes 0.35 L Absolute Monocytes 0.26 Absolute Eosinophils 0.00 Absolute Basophils 0.02 RBC Morphology Sodium 134 L Potassium 3.9 Chloride 99 Carbon Dioxide 24.6 Anion Gap 10.4 BUN 32 H Creatinine 2.1 H Est GFR (CKD-EPI 2020) 32.83 Glucose 410 H Hemoglobin A1c 8.9 H Calcium 8.6 Magnesium Total Bilirubin 0.3 AST 15 ALT 23 Alkaline Phosphatase 93 Troponin I Total Protein 5.8 L Albumin 2.6 L Urine Color Urine Clarity Urine pH Ur Specific [place] Urine Protein Urine Ketones Urine Blood Urine Nitrite Urine Bilirubin Urine Urobilinogen Ur Leukocyte Esterase Urine RBC Urine WBC Ur Epithelial Cells Urine Crystals Urine Bacteria Urine Casts Urine Mucus Ur Culture Indicated? Urine Glucose COVID-19 Source SARS-CoV-2 (PCR) Influenza Type A (PCR) Influenza Type B (PCR) RSV (PCR) Add-On Test Request 10/21/22 Unknown WBC RBC Hgb Hct MCV MCH MCHC RDW Plt Count MPV Immature Gran % Neutrophils % Lymphocytes % Monocytes % Eosinophils % Basophils % Nucleated RBC % Absolute Neutrophils Absolute Lymphocytes Absolute Monocytes Absolute Eosinophils Absolute Basophils RBC Morphology Sodium Potassium Chloride Carbon Dioxide Anion Gap BUN Creatinine Est GFR (CKD-EPI 2020) Glucose Hemoglobin A1c Calcium Magnesium Total Bilirubin AST ALT Alkaline Phosphatase Troponin I Total Protein Albumin Urine Color Urine Clarity Urine pH Ur Specific [place] Urine Protein Urine Ketones Urine Blood Urine Nitrite Urine Bilirubin Urine Urobilinogen Ur Leukocyte Esterase Urine RBC Urine WBC Ur Epithelial Cells Urine Crystals Urine Bacteria Urine Casts Urine Mucus Ur Culture Indicated? Urine Glucose COVID-19 Source SARS-CoV-2 (PCR) Influenza Type A (PCR) Influenza Type B (PCR) RSV (PCR) Add-On Test Request Cancelled Time Spent with Patient Time Spent with Patient: 35-49 minutes Time was spent: preparing to see the patient(eg.review tests), ordering medications,tests, procedures, referring, communicating with other health health and social care teacher, indepentently interpreting results, counseling the patient and care coordination
[2022-10-21] MEDS: Insulin NPH-Human 300 UNITS/3 ML PEN 30 UNIT SC (10:34)
[2022-10-21] MEDS: Metoprolol 5 MG/5 ML VIAL IVP (11:17)
[2022-10-21] MEDS: Lisinopril 5 MG TAB PO (14:41)
[2022-10-21] MEDS: Normal Saline 500 ML 30 ML IV (14:55)
[2022-10-21] MEDS: AZITHROMYCIN 500 MG in Normal Saline 250 ML 250 MG IVPB (14:56)
[2022-10-21 15:18] LABS: Lab Add On Test DONE
[2022-10-21 15:38] LABS: Magnesium 2.2 mg/dL (1.8-2.4)
[2022-10-21] MEDS: Enoxaparin 40 MG/0.4 ML SYR SC (16:01)
[2022-10-21] MEDS: Benzonatate 100 MG CAP 200 MG PO (16:01)
[2022-10-21] MEDS: Budesonide/Formoterol 160/4.5 6 GM 60 PUFF INH IH (19:20)
[2022-10-21] MEDS: cefTRIAXone 1 GM/50 ML BAG IVPB (21:22)
[2022-10-22] VITALS (17 sets, daily range): BP systolic 117–173; BP diastolic 63–82; PULSE 64–83; RESP 1–18; TEMP 35.6–36.9; O2SAT 88–99
[2022-10-22] MEDS: Albuterol/Ipratropium 3 ML UPD VIAL UPD ×4 (01:08→19:06)
[2022-10-22] MEDS: Levothyroxine 50 MCG TAB PO (06:23)
[2022-10-22 06:27] LABS: Absolute Monocyte Count 1.12 10^3/uL (0.1-0.8); Basophils % 0.2; HCT 34.5 % (40.0-50.0); HGB 11.4 g/dL (13.5-17.5); Immature Grans % 1.2; Lymphocytes % 5.2; MCH 29.5 pg (27.0-33.0); MCV 89 fL (80-95); MPV 9.1 fL (8.0-11.0); Monocytes % 4.6; Neutrophils % 88.8; Platelet Count 223 10^3/uL (130-400); RBC 3.86 10^6/uL (4.36-5.78); RDW 14.7 % (11.8-14.1); RDW-SD 47.9 fL; WBC 24.27 10^3/uL (4.4-10.8)
[2022-10-22 06:46] LABS: ALT 22 U/L (16-63); AST 16 U/L (15-37); Albumin 2.7 g/dL (3.4-5.0); Alkaline Phosphatase 76 U/L (46-116); Anion Gap 8.6 mmol/L (3-11); BUN 41 mg/dL (7-18); Bilirubin, Total 0.3 mg/dL (0.2-1.0); CO2 25.4 mmol/L (21.0-32.0); Chloride 98 mmol/L (98-107); Estimated GFR 34.81 (mL/min/1.73m2); Glucose 186 mg/dL (74-106); Potassium 4.1 mmol/L (3.5-5.1); Sodium 132 mmol/L (136-145); Total Protein 5.5 g/dL (6.4-8.2)
[2022-10-22 06:48] LABS: Absolute Basophil Count 0.05 10^3/uL (0.0-0.2); Absolute Lymphocyte Count 1.26 10^3/uL (1.2-3.4); Absolute Neutrophil Count 21.55 10^3/uL (1.2-6.7)
[2022-10-22 06:52] LABS: Magnesium 2.2 mg/dL (1.8-2.4)
[2022-10-22 06:59] LABS: Diff Comment Agrees w/ Instrument; Poikilocytes 1+
[2022-10-22] MEDS: Metoprolol CR 100 MG TABCR PO (08:09)
[2022-10-22] MEDS: amLODIPine 10 MG TAB PO (08:09)
[2022-10-22] MEDS: Omeprazole 20 MG CAPCR PO (08:09)
[2022-10-22] MEDS: Lisinopril 5 MG TAB PO (08:09)
[2022-10-22] MEDS: Atorvastatin 40 MG TAB PO (08:10)
[2022-10-22] MEDS: Insulin Aspart 300 UNITS/3 ML PEN SC ×2 (08:10→21:45)
[2022-10-22] MEDS: Spironolactone 25 MG TAB PO (08:10)
[2022-10-22] MEDS: Insulin NPH-Human 300 UNITS/3 ML PEN 30 UNIT SC (08:10)
[2022-10-22] MEDS: Aspirin 325 MG TAB PO (08:10)
[2022-10-22] MEDS: predniSONE 20 MG TAB 40 MG PO (08:10)
[2022-10-22] MEDS: guaiFENesin 600 MG TABCR PO ×2 (08:10→19:35)
[2022-10-22] MEDS: Budesonide/Formoterol 160/4.5 6 GM 60 PUFF INH IH ×2 (08:47→19:12)
--- NOTE | 2022-10-22 10:36 | PT.INTREAT ---
Date of service: 10/22/22 Time of Service: 10:20 PT Notes Visit Reasons: COPD Inpatient Physical Therapy Treatment Note [facility] Date: 10/22/22 PRECAUTIONS: Fall, standard, activity as tolerated. SUBJECTIVE: Patient reports not wanting to do much today, feels his legs are too weak. OBJECTIVE: Patient sitting sideways at EOB, torso turned towards head of bed, legs out straight reading a magazine. IV access RUE. Telemetry in place. Bed alarm active. ? PAIN: none reported VITALS: Closely monitored by nursing staff via telemetry. ? BED MOBILITY/TRANSFERS? Rolling L/R: Independent Supine-sit: independent? Sit-supine: independent ? Sit-stand: CGA? Stand-sit: CGA? Bed-Chair: CGA with verbal cues for safety? Chair-bed: CGA with verbal cues for safety Therapeutic Exercises (74555s4): Direct one-on-one instruction in therapeutic exercises to develop strength, endurance, range of motion and flexibility. Afternoon session ?Ambulation ?Assistive Device: FWW ?Weight bearing: full ?Assist: CGA ?Distance:? 85 feet ?Deviation: Patient noticeably less stiff-legged than this morning. Maintains wide base of support. Reports back pain after ambulation. ? Provided skilled instruction in proper exercise performance Provided skilled manual cues to facilitate proper muscle recruitment and/or form: [] Gait Training ([id number]): Direct one-on-one instruction and skilled instruction in: [x] employing an assistive device [x] movement sequencing [x] turning and movement with proper form [x] Provided verbal cues for equipment management and technique [x] Provided instruction in gait pattern [x] Patient education regarding pacing and breathing techniques to maximize activity tolerance? GAIT? Assistive Device: FWW ? Weight bearing: full Assist: CGA ? Distance:? 25 feet ? Deviation: Patient walks leaning forward, stiff legged, with walker too far in front. Requires max verbal and tactile cues for safe technique, especially when turning. Reduced step height, reduced step length, wide base of support. ? ASSESSMENT:? Patient tolerates therapy well. Returns to sit EOB at end of session. Requests lisette mayo. Reactivated bed alarm. PLAN: Continue global strengthening per plan of care until patient is medically cleared for discharge. TREATMENT CODE/TIME: 15 minutes beginning at 10:20, 15 minutes beginning at 15:18
--- NOTE | 2022-10-22 10:41 | INITIAL_ITS ---
Date of service: 10/22/22 Time of Service: 10:41 Care Management Initial Assmt Initial Assessment REASON FOR HOSPITALIZATION:: COPD with exacerbation PREVIOUS FUNCTIONAL STATUS/SOCIAL/FAMILY SUPPORTS:: Evert lives in a single family home in [place], [place] with his son Fred, his son's girlfriend Vijaya and his grandson, also named Fred. Fred is his only biological child but he raised 4 other children, presumably step children, as he has been twice. 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 He is independent at baseline with ADLs and uses a walker or a cane for ambulatory assistance. He does received home health services for nursing. CURRENT FUNCTIONAL STATUS:: Evert was sitting up on the side of his bed when CM met with him. He was polite and appeared to be in good spirits, occasionally jok ing with CM. Evert shared that he was in the and served in [facility] [facility]. He was not injured and does not receive any [place] benefits except some medical coverage. He is not service connected. During the conversation, it became clear that Evert has some memory issues. He was unable to identify where the other 4 children he raised came from but was clear they were not his biologically. He was also unsure whether or not he receives any visiting nurse visits at home. (He has home health nursing through [facility]) Evert shared that he thought that someone from the [place] has come to see him periodically but he did not believe they were nurses. Clinically Evert is doing well. He is saturating in the low to mid- nineties on room air and his vital signs are stable, although his blood pressure does run a bit high at times. Lisinopril has been added to his antihypertensive regimen. ADVANCE DIRECTIVES:: none on file Has patient been provided with info about the portal/API?: Yes Did the patient sign up for the portal?: No CODE STATUS:: DNR/DNI INSURANCE COVERAGE / FINANCIAL ISSUES:: [place] CURRENT HOME/COMMUNITY SERVICES/EQUIPMENT:: [facility] RN, shamar PRIMARY CARE PHYSICIAN:: Cierra Albright POTENTIAL DISCHARGE NEEDS:: Follow up with PCP and plan of [place] PATIENT/FAMILY EDUCATION NEEDS:: Review of discharge instructions, limitations, follow up plan, discuss Ask Me Three TRANSPORTATION:: via private vehicle PLAN:: Anticipate Evert will be discharged home with a resumption of home health nursing. He will follow up with his PCP and plan of care and transport with family. CM will follow and continue to assess for discharge needs. 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) right hand/arm, following postop stroke Chronic post-traumatic stress disorder (PTSD) after combat (Chronic) apparent when delirious, hospitalized, stressed physically or mentally History of delusional disorder (Acute) when hospitalized, mentation deteriorates gets paranoid Postoperative stroke (Chronic) August 2020, following left CEA History of left-sided carotid endarterectomy (Acute) Left-sided carotid artery disease (Acute) 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) [facility] History of traumatic brain injury (Acute) Vascular dementia (Acute) Alcoholic dementia (Acute) History of smoking (Acute) Closed left radial fracture (Acute) s/p ORIF L distal radius 10/09/2018 Peripheral vascular disease of extremity with claudication (Acute) Hypertension (Chronic) COPD (chronic obstructive pulmonary disease) (Chronic) Diverticulitis large intestine (Acute) Pneumothorax, left (Acute) Left rib fracture (Acute) Medical History (Updated 10/21/22 @ 14:46 by Faith Chaudhary NP) Abnormal gait Alcohol abuse Cataract Coronary artery disease COVID Depression Edema Erectile dysfunction Hepatitis C treated with Ribavirin and interferon. PCR qual neg 11/1999 Impaired cognition Memory loss Palliative care patient Tobacco dependence quit 2019 Vitamin D deficiency Surgical History H/O right knee surgery Status post closed fracture of femur s/p repair Family History Son Diabetes Pancreatitis, acute Grandson No problems noted. Mother , age 95 from DM2 and heart disease Heart disease Diabetes Father , in his early 50s from etohism Alcohol use disorder Sister Colon cancer Granddaughter Substance use disorder Other Cancer Social History Smoking/Tobacco Use Status: Current every day Tobacco Type: cigarettes Smoking packs per day: 1 Smoking cigarettes per day: 20.0 Years smoked: 55 Smoking pack- years: 55.00 Tobacco: How many years used: 55 Second Hand Exposure: No Counseling given: provider counseling Smoking risk assessment performed?: Yes Alcohol Intake: current Alcohol Intake frequency: a few times a week Alcohol type: beer Counseling given: Yes Drug use: Daily Substance use type: marijuana Counseling given: No Caregiver/Support person: Yes Household members: family Housing: house Number of Children: 1 number of grandchildren: 3 Communication Needs: Hard of Hearing and Corrective Lenses Education Level: high school Do you need help understanding health information?: Always 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[employer], 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, 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 Pets and animals: Yes Current gender identity: male What is your relationship status?: How often do you talk on the phone with friends or family?: never How often do you get together with friends or relatives?: twice per week Panel score (0-1 are the most socially isolated patients): 0 What type of physical activity do you participate in: walking and sedentary lifestyle Duration: 15-30 minutes/day Special roslyn needs: No Agree to transfusion: No Seatbelt use: sometimes Helmet use: No Working smoke detector in home: Yes Fire extinguisher in home: Yes Do you feel safe at home: Yes Do you feel safe in your relationship?: Yes
--- NOTE | 2022-10-22 14:04 | DI.RAD_ITS ---
Exam(s) XR CHEST 2V PA LATERAL EXAM: XR CHEST 2V PA LATERAL CLINICAL HISTORY: Worsening cough. TECHNIQUE: 2D digital imaging was performed. COMPARISON: CR,XR XR CHEST 2V PA LATERAL from 10/20/2022 FINDINGS: 2 views: Heart size is upper normal. The mediastinum is not widened. Right hemidiaphragm is again noted be elevated. No obvious new infiltrates nor pleural effusions. N o pulmonary edema. No pneumothorax IMPRESSION: Elevated right hemidiaphragm again noted. No obvious infiltrates. Incidentally noted is heavy calcification in the right-side of the neck which is most probably within carotid artery plaque and if clinically indicated can be further studied Doppler imaging. DATA REPOSITORY: RADIATION DOSE DELIVERED:
--- NOTE | 2022-10-22 14:16 | W.PM.PROGNOT ---
Date of Service Date of service: 10/22/22 Time of Service: 14:16 Assessment and Plan Assessment and plan (1) COPD with exacerbation: Status: Acute Assessment and plan: Continue nebs and steroids, along with supplemental O2 as needed. Ceftriaxone and azithromycin (2) Hypoxia: Status: Acute Assessment and plan: Oxygen saturations > 90% on 2 LPM since admission, continue oxygen, wean as appropriate (3) Acute kidney injury: Status: Acute Assessment and plan: Creatinine 2.0 - baseline 1.7 Uncontrolled htn (4) Vascular dementia: Status: Acute Assessment and plan: Behavior is appropriate, confused, but pleasant and cooperative (5) Hypertension: Status: Chronic Assessment and plan: Continue Sprironolactone and metoproplol and amlodipine HTN here, Lopressor 5 mg IV given with good results. Contnue Lisinopril BP improved S140s/D70s Qualifiers: Hypertension type: essential hypertension Qualified Code(s): I10 - Essential (primary) hypertension (6) DVT prophylaxis: Status: Acute Assessment and plan: Enoxaparin (7) Discharge planning issues: Status: Acute Assessment and plan: Home when medically stable Lisinopril added to home meds discussed with Dr Montalvo Subjective Subjective Patient reports: no new complaints, tolerating liquids well, tolerating a regular diet, bowel movement and afebrile; denies diarrhea, nausea or vomiting Interval history since last seen: Awake and alert, sitting in bed. Denies trouble breathing Exam Narrative Exam Narrative: Physical Examination General: awake, cooperative, resting comfortably, no acute distress HEENT: normocephalic, atraumatic; PERRL, EOM intact, conjunctiva normal; no nasal discharge; moist mucous membranes, oral and pharyngeal mucosa normal, tolerating secretions Neck: supple, trachea midline; full ROM Chest: normal to inspection Respiratory: normal respiratory effort, speaking in full sentences, clear to auscultation, no wheezing, rales or rhonchi Cardiac: regular rate, regular rhythm, S1S2 intact, no murmurs rubs or gallops GI: abdomen soft, non-tender, non-distended; no palpable mass or hepatosplenomegaly Skin: no lesions, rashes or trauma appreciated Neuro: Alert to self not to place or situation or time Psych: Appropriate mood and affect Objective Last Vital Signs Temp 36.9 C 10/22/22 11:19 Pulse 69 10/22/22 11:19 Resp 18 10/22/22 11:19 BP 123/63 10/22/22 11:19 Pulse Ox 91 L 10/22/22 11:19 Laboratory Results - last 24 hr 10/21/22 10/21/22 10/22/22 05:58 05:58 05:35 WBC RBC Hgb Hct MCV MCH MCHC RDW Plt Count MPV Immature Gran % Neutrophils % Lymphocytes % Monocytes % Eosinophils % Basophils % Nucleated RBC % Absolute Neutrophils Absolute Lymphocytes Absolute Monocytes Absolute Eosinophils Absolute Basophils RBC Morphology Poikilocytosis Sodium Cancelled Potassium Cancelled Chloride Cancelled Carbon Dioxide Cancelled Anion Gap Cancelled BUN Cancelled Creatinine Cancelled Est GFR (CKD-EPI 2020) Cancelled Glucose Cancelled Calcium Cancelled Magnesium 2.2 Total Bilirubin Cancelled AST Cancelled ALT Cancelled Alkaline Phosphatase Cancelled Total Protein Cancelled Albumin Cancelled Add-On Test Request DONE 10/22/22 10/22/22 06:15 06:15 WBC 24.27 H RBC 3.86 L Hgb 11.4 L Hct 34.5 L MCV 89 MCH 29.5 MCHC 33.0 RDW 14.7 H Plt Count 223 MPV 9.1 Immature Gran % 1.2 Neutrophils % 88.8 Lymphocytes % 5.2 Monocytes % 4.6 Eosinophils % 0.0 Basophils % 0.2 Nucleated RBC % 0.0 Absolute Neutrophils 21.55 H Absolute Lymphocytes 1.26 Absolute Monocytes 1.12 H Absolute Eosinophils 0.00 Absolute Basophils 0.05 RBC Morphology See Below Poikilocytosis 1+ Sodium 132 L Potassium 4.1 Chloride 98 Carbon Dioxide 25.4 Anion Gap 8.6 BUN 41 H Creatinine 2.0 H Est GFR (CKD-EPI 2020) 34.81 Glucose 186 H Calcium 9.0 Magnesium 2.2 Total Bilirubin 0.3 AST 16 ALT 22 Alkaline Phosphatase 76 Total Protein 5.5 L Albumin 2.7 L Add-On Test Request Time Spent with Patient Time Spent with Patient: 25-34 minutes Time was spent: preparing to see the patient(eg.review tests), ordering medications,tests, procedures, referring, communicating with other health health care social worker, indepentently interpreting results, counseling the patient and care coordination
--- NOTE | 2022-10-22 15:11 | NUR.NOTE ---
Nursing Note: called pharmacy for abx that was due at 1400 this day
[2022-10-22 15:24] LABS: Lab Add On Test DONE
[2022-10-22] MEDS: AZITHROMYCIN 500 MG in Normal Saline 250 ML 250 MG IVPB (15:29)
--- NOTE | 2022-10-22 15:31 | PHA.REVIEW2 ---
Pharmacy Admission Review Admission Clinical Review Admission Pharmacy Review: (Updated 10/21/22 @ 14:46 by Faith Chaudhary NP) Discharge planning issues (Acute) DVT prophylaxis (Acute) COPD with exacerbation (Acute) Hypoxia (Acute) Acute kidney injury (Acute) Vascular dementia (Acute) clopidogrel [From Plavix] Allergy (Unknown, Unverified 10/20/22 20:27) simvastatin Allergy (Unknown, Unverified 10/20/22 20:27) Resuscitation Status DNR/DNI Height 5 ft 5 in Weight 75.6 kg Comments Comments/Follow Ups: Watch BP, BG, SCr, labs, for culture results, and for med changes (possible renal dose adjustments). Pharmacy Admission Review Renal Dosing Renal Dosing: BUN 41 mg/dL (7-18) H 10/22/22 06:15 Creatinine 2.0 mg/dL (0.70-1.30) H 10/22/22 06:15 Medications needing adjustments: Reviewed (Crcl ~31.7 mL/min current meds okay) Anticoagulation Anticoagulation: Hgb 11.4 g/dL (13.5-17.5) L 10/22/22 06:15 Hct 34.5 % (40.0-50.0) L 10/22/22 06:15 Plt Count 223 10^3/uL (130-400) 10/22/22 06:15 Creatinine 2.0 mg/dL (0.70-1.30) H 10/22/22 06:15 DVT Prophylaxis: Reviewed Medications: Enoxaparin Opiate Usage Evaluate Pain Scale/Pains Meds: N/A Relevant Labs Relevant Labs: Sodium 132 mmol/L (136-145) L 10/22/22 06:15 Potassium 4.1 mmol/L (3.5-5.1) 10/22/22 06:15 Chloride 98 mmol/L (98-107) 10/22/22 06:15 Magnesium 2.2 mg/dL (1.8-2.4) 10/22/22 06:15 Electrolytes, C-Reactive P, ESR: Reviewed DM Control DM Control: Glucose 186 mg/dL (74-106) H 10/22/22 06:15 Hemoglobin A1c 8.9 % (<5.7) H 10/21/22 05:58 Finger Stick Blood Glucose 131 Finger Stick Blood Glucose 131 Finger Stick Blood Glucose 182 Finger Stick Blood Glucose 182 DM Control: Reviewed Insulin Dosing, Diabetic Medication: Sliding scale aspart ordered. Scheduled NPH ordered while the pt is on prednisone Cardiac Review Cardiac Review: Troponin I 54 ng/L (<or=60) 10/21/22 05:58 BP, HR, EF%: Reviewed (BP has been elevated most of admission do far) QTc Review QTc: Reviewed (QTc has been 456, 499, and 467 on the 3 EKGs done this admission) IV to PO Switch IV Medications: Reviewed Home Meds Home Med List reviewed: Intervened (some notes in the med orders on the home medication list that do not match the sig for those orders. Lack of data in external med history. Looking into where pt fills meds to get a better idea of what he is supposed to be on. Recommending telepharmacy Med Rec consult.) Current Meds Current Medication Order Review: Intervened (Discontinued duplicate med orders, adjusted some med orders based on different dosage strengths or sizes available in the pharmacy.) Pharmacy Antibiotic Review Pharmacy Antibiotic Activity: C/S review and Reviewed, no change Comments: Ceftriaxone and azithromycin ordered for COPD exacerbation. Blood cultures and MRSA screen pending. Comments Comments/Follow Ups: Watch BP, BG, SCr, labs, for culture results, and for med changes (possible renal dose adjustments).
[2022-10-22 15:36] LABS: Procalcitonin < 0.1 ng/mL
--- NOTE | 2022-10-22 16:11 | NUR.NOTE ---
Nursing Note: updated son at the bedside about patient plan of care and new orders placed today regarding lab draws, and specimens optained. educated on elevated wbc. why bp medication was started yesterday. educated on how steroids increase bgl. son verbalizes understanding. denies any questions at this time. [facility] for an update. states that they could call if pcp found it appropriate
[2022-10-22] MEDS: Enoxaparin 40 MG/0.4 ML SYR SC (16:47)
[2022-10-22] MEDS: cefTRIAXone 1 GM/50 ML BAG IVPB (21:44)
[2022-10-22] MEDS: Normal Saline Flush 10 ML SYR IVP (21:44)
[2022-10-23] VITALS (11 sets, daily range): BP systolic 99–155; BP diastolic 52–97; PULSE 55–89; RESP 1–20; TEMP 36–36.2; O2SAT 89–98
--- NOTE | 2022-10-23 | DI.US_ITS ---
Exam(s) US CAROTID EXAM: US CAROTID CLINICAL HISTORY: heavy calcification r side neck noted CXR. TECHNIQUE: Ultrasound carotids performed using grayscale, color-flow, and spectral Doppler imaging. COMPARISON: No exams were available for comparison FINDINGS: RIGHT CAROTID ARTERY: Plaque: Moderate to large amount of plaque seen on the right common carotid artery, carotid bulb bulb and ICA. Velocity elevation: Please see below. LEFT CAROTID ARTERY: Plaque: Minimal calcific plaque is seen in the left common carotid artery and carotid bulb. Velocity elevation: None. VERTEBRAL ARTERIES: Antegrade flow. Measurements: R Bulb: 89.3cm/s PS / 5.1cm/s ED R CCA: 85.6cm/s PS / 12.9cm/s ED R ECA: 278cm/s PS / 11.4cm/s ED R ICA Prox: 58.1cm/s PS / 5.9cm/s ED R ICA Mid: 207.3cm/s PS / 28.1cm/s ED R ICA Distal: 91.4cm/s PS /11.3cm/s ED R Vert: 75.9cm/s PS / 15.5cm/s ED R SVR: 2.4 R DVR: 2.2 L Bulb: 41.8cm/s PS / 4.6cm/s ED L CCA: 60.3cm/s PS / 7.9cm/s ED L ECA: 296.3cm/s PS / 9.7cm/s ED L ICA Prox: 53.8cm/s PS / 10.1cm/s ED L ICA Mid: 68.1cm/s PS / 13.6cm/s ED L ICA Distal: 73.8cm/s PS / 17.4cm/s ED L Vert: 27.5cm/s PS / 4cm/s ED L SVR: 1.2 L DVR: 2.2 IMPRESSION: 1. Findings consistent with 50-69 percent stenosis of the right internal carotid artery. 2. No hemodynamically significant left carotid artery stenosis. Criteria for Carotid Stenosis: Normal: ICA PSV <125 cm/s no plaque or intimal thickening is visible. <50% stenosis: ICA PSV <125 cm/s and plaque or intimal thickening is visible. 50-69% stenosis: ICA PSV is 125-250 cm/s and plaque is visible. >70% stenosis to near occlusion: ICA PSV >250 cm/s with visible plaque and luminal narrowing. DATA REPOSITORY:
[2022-10-23] MEDS: Albuterol/Ipratropium 3 ML UPD VIAL UPD ×3 (01:16→13:32)
[2022-10-23] MEDS: Levothyroxine 50 MCG TAB PO (05:52)
[2022-10-23 07:20] LABS: Abs Immature Grans 0.28 10^3/uL (0.0-0.06); Absolute Lymphocyte Count 1.81 10^3/uL (1.2-3.4); Absolute Monocyte Count 1.11 10^3/uL (0.1-0.8); Absolute Neutrophil Count 16.23 10^3/uL (1.2-6.7); Basophils % 0.2; HGB 11.7 g/dL (13.5-17.5); Immature Grans % 1.4; Lymphocytes % 9.3; MCH 29.4 pg (27.0-33.0); MCHC 32.5 % (32.0-36.0); MCV 91 fL (80-95); MPV 9.6 fL (8.0-11.0); Monocytes % 5.7; Neutrophils % 83.4; Platelet Count 250 10^3/uL (130-400); RBC 3.98 10^6/uL (4.36-5.78); RDW 14.9 % (11.8-14.1); RDW-SD 49.6 fL; WBC 19.46 10^3/uL (4.4-10.8)
[2022-10-23 07:24] LABS: Absolute Basophil Count 0.04 10^3/uL (0.0-0.2)
[2022-10-23 07:41] LABS: Magnesium 2.1 mg/dL (1.8-2.4)
[2022-10-23 07:45] LABS: ALT 21 U/L (16-63); AST 16 U/L (15-37); Albumin 2.7 g/dL (3.4-5.0); Alkaline Phosphatase 78 U/L (46-116); Anion Gap 8.9 mmol/L (3-11); BUN 41 mg/dL (7-18); Bilirubin, Total 0.3 mg/dL (0.2-1.0); C-Reactive Protein 0.34 mg/dL (0.0-0.3); CO2 26.1 mmol/L (21.0-32.0); CREATININE 2.1 mg/dL (0.70-1.30); Calcium 8.8 mg/dL (8.5-10.1); Chloride 100 mmol/L (98-107); Estimated GFR 32.83 (mL/min/1.73m2); Glucose 171 mg/dL (74-106); Potassium 3.9 mmol/L (3.5-5.1); Sodium 135 mmol/L (136-145); Total Protein 5.7 g/dL (6.4-8.2)
[2022-10-23] MEDS: Insulin NPH-Human 300 UNITS/3 ML PEN 30 UNIT SC (07:50)
[2022-10-23] MEDS: Insulin Aspart 300 UNITS/3 ML PEN SC ×2 (07:50→12:31)
[2022-10-23] MEDS: Lisinopril 5 MG TAB PO (07:51)
[2022-10-23] MEDS: Spironolactone 25 MG TAB PO (07:52)
[2022-10-23] MEDS: Aspirin 325 MG TAB PO (07:52)
[2022-10-23] MEDS: Metoprolol CR 100 MG TABCR PO (07:52)
[2022-10-23] MEDS: amLODIPine 10 MG TAB PO (07:52)
[2022-10-23] MEDS: predniSONE 20 MG TAB 40 MG PO (07:52)
[2022-10-23] MEDS: guaiFENesin 600 MG TABCR PO (07:52)
[2022-10-23] MEDS: Atorvastatin 40 MG TAB PO (07:53)
[2022-10-23] MEDS: Normal Saline Flush 10 ML SYR IVP (07:53)
[2022-10-23] MEDS: Omeprazole 20 MG CAPCR PO (07:53)
[2022-10-23] MEDS: Budesonide/Formoterol 160/4.5 6 GM 60 PUFF INH IH (08:20)
--- NOTE | 2022-10-23 11:43 | PDOC.CMPRO ---
Date of service: 10/23/22 Time of Service: 11:44 Care Management Progress Note Progress Note Text Progress Note Text: S/O: A: Fred is a 71 year old man admitted on 10/20/22 with COPD P:Anticipate Evert will be discharged home with a resumption of home health nursing. He will follow up with his PCP and plan of care and transport with family. CM will follow and continue to assess for discharge needs.
--- NOTE | 2022-10-23 11:54 | PT.INTREAT ---
Date of service: 10/23/22 Time of Service: 11:40 PT Notes Visit Reasons: COPD Inpatient Physical Therapy Treatment Note [facility] Date: 10/23/22 PRECAUTIONS: Fall, standard, activity as tolerated. SUBJECTIVE: Patient reports feeling ok today. OBJECTIVE: Patient sitting EOB, dressed in his own clothes. No bed alarm active. Agreeable to therapy. ? PAIN: None reported initially, c/o back pain about 1/2 way through ambulation, reports discomfort in his butt cheeks at end of therapy once returned to bed. Describes it as not quite pain, but a funny feeling. This therapist asks if it feels like tv static and patient agrees. VITALS: monitored by nursing staff.? BED MOBILITY/TRANSFERS? Rolling L/R: independent? Sit-stand: SBA? Stand-sit: SBA ? Bed-Chair: SBA ? Chair-bed: SBA ? Therapeutic Exercises ([id number]): Direct one-on-one instruction in therapeutic exercises to develop strength, endurance, range of motion and flexibility. ?Ambulation ? Assistive Device: FWW ? Weight bearing: Full Assist: SBA ? Distance:? 115 feet, ascends and descends 2 six inch stairs and 3 four inch stairs. ? Deviation: Adequate step height, reduced stride length, stiff back bent forward at the hip. ? Provided skilled instruction in proper exercise performance Provided skilled manual cues to facilitate proper muscle recruitment and/or form. ASSESSMENT:? Patient tolerates therapy well. Returns to sit EOB at end of treatment. PLAN: Continue global strengthening per plan of care until patient is medically cleared for discharge. TREATMENT CODE/TIME: 13 minutes beginning at 11:40
[2022-10-23] MEDS: Doxycycline Hyclate 100 MG CAP PO (12:31)
--- NOTE | 2022-10-23 14:48 | NUR.NOTE ---
Nursing Note: updated daughter in law on poc and progress of patient.
--- NOTE | 2022-10-23 15:21 | DSE_ITS ---
Date of service: 10/23/22 Time of Service: 15:21 DS: Diagnosis Discharge Diagnosis (1) COPD with exacerbation: Status: Acute Asessment and Plan: Presented with hypoxia and mild obtundation. This improved with nebulizer treatments and steroids. Empirically treated with IV antibiotics for presumed pneumonia, later switched over to doxycycline for COPD related bronchitis. Discharged on no home oxygen, O2 sat 98% on room air. (2) Hypoxia: Status: Acute Asessment and Plan: Hypoxia improved with treatment of COPD exacerbation. No home O2 required. (3) Acute kidney injury: Status: Acute Asessment and Plan: Creatinine appears to be at baseline at around 2.1. (4) Vascular dementia: Asessment and Plan: Dementia appears to be stable. (5) Hypertension: Status: Chronic Asessment and Plan: Stable on present meds. Discharge Plan Disposition Patient Disposition: Home W/Home Health Services Condition: Improving Discharge Details Reason For Visit: COPD Admit Date/Time: 10/20/22 23:04 Admit Provider: Portillo Post Attending Provider: Portillo Post Primary Care Provider: Cierra Albright Hospital Course Hospital Course: 71-year-old male admitted on 10/20/2022 because of COPD exacerbation. He had an unspecified period of lethargy per family members. EMS found an O2 sat of between 70 and 80%. On arrival in the ER there were diffuse rhonchi but after DuoNebs and steroids the patient reported to be far more alert satting in the low 90s on 3 L. He drops to 80% on room air. He had a mild bump in his troponin felt to be demand ischemia. His troponins leveled out and his breathing improved. He no longer had an oxygen requirement. His chest x-ray shows a known elevation of the right hemidiaphragm but no significant consolidation. He was treated with Rocephin and azithromycin empirically, later changed to doxycycline. He is discharged on a short prednisone course, no oxygen. He is satting 98% on room air. A chest x-ray showed significant calcifications along the right carotid artery. A duplex scan showed right carotid artery 50 to 69% stenosis, left carotid artery no stenosis. Discharged home with home health care. Home Meds and New Rx's Prescriptions: New prednisone 20 mg Tablet 40 mg PO DAILY Qty: 10 0RF Continued albuterol sulfate 90 mcg/actuation Hfa Aerosol Inhaler 2 puff INHALATION Q6H PRN aspirin 325 mg Tablet 325 mg PO DAILY amlodipine 5 mg Tablet 10 mg PO DAILY Qty: 60 0RF budesonide-formoterol [Symbicort] 160-4.5 mcg/actuation Hfa Aerosol Inhaler 2 puff inhalation BID Qty: 6 1RF Patient Comments: Pt's caregiver states, he has not been using his inhalers lately. ML 09/29/22 acetaminophen 500 mg tablet 500 mg PO Q8H PRN (Reason: pain) Qty: 60 3RF levothyroxine 25 mcg tablet 50 mcg PO DAILY Patient Comments: TAKE 1 TABLET BY MOUTH EVERY DAY omeprazole 20 mg Capsule,Delayed Release(Dr/Ec) 20 mg PO DAILY atorvastatin 20 mg tablet 40 mg PO DAILY guaifenesin 600 mg tablet extended release 12hr 600 mg PO BID metoprolol succinate 100 mg tablet extended release 24 hr 100 mg PO DAILY Rx Instructions: takes with 50 mg tab for dose of 150 mg daily spironolactone 50 mg Tablet 25 mg PO DAILY polyethylene glycol 3350 [Miralax] 17 gram/dose powder 17 g PO DAILY PRN (Reason: constipation) Discharge Instructions Instructions: COPD (Chronic Obstructive Pulmonary Disease) (DC) Stand Alone Forms: Nursing Discharge Form Referrals: Cierra Albright [Primary Care Provider] - (NEEDS FOLLOW UP: Incidentally noted is heavy calcification in the right-side of the neck which is most probably within carotid artery plaque and if clinically indicated can be further studied Doppler imaging. BP high; Lisinopril 5 mg daily added to current regime - BP's down to 140s/70s ) Activity:: Activity as Tolerated Equipment/Supplies:: No Equipment Needed Diet:: As Tolerated Discharge Orders Discharge Orders: Discharge Order (Routine); Ordered 10/23/22 Ordered By: Ariel Paul DS: Summary Summary Time spent discussing smoking cessation with patient: more than 10 minutes Time Spent with Patient providing and/or coordinating discharge services: Greater than 30 minutes Status at Discharge Functional status at discharge: independent ambulation Overall status at discharge: patient is back to baseline Mental Status: mental status grossly normal Speech and Movement: speech and movement normal Mood: congruent mood Affect: normal affect Exam Narrative Exam Narrative: On exam at discharge she was initially sleeping but aroused easily. He was able to sit up in bed without any assistance. He answered questions appropriately. His breathing was not at all labored. His posterior lung exam showed scattered rhonchi throughout both lung fay but otherwise good air movement. Heart sounds were regular abdomen was nontender lower extremities showed no edema. Psych Mental Status: mental status grossly normal Speech and Movement: speech and movement normal Mood: congruent mood Affect: normal affect DS: Data Vitals/I&O Vitals and I&O: Vital Signs Temperature 36.1 C L 10/23/22 07:58 Temperature Source Tympanic 10/23/22 07:58 Pulse 84 10/23/22 13:38 Pulse Rhythm Regular 10/23/22 07:58 Pulse 83 10/21/22 00:50 Respiratory Rate 16 10/23/22 13:38 Respiratory Effort Normal, Non-Labored 10/23/22 07:58 Respiratory Depth Normal 10/23/22 07:58 Respiratory Pattern Normal 10/23/22 07:58 Blood Pressure 148/93 H 10/23/22 07:58 Blood Pressure Mean 76 10/21/22 00:41 Pulse Oximetry 98 10/23/22 13:38 Oxygen Delivery Method Room Air 10/23/22 13:32 Oxygen Flow Rate 0 10/23/22 13:32 Pain Level 0 10/23/22 07:58 Comment RN informed BP 10/21/22 10:39 Intake & Output 10/22/22 10/23/22 10/23/22 23:59 11:59 23:59 Intake Total 540 / 900 Output Total 900 / 900 Balance 540 / -200 -900 / -900 Intake: IV 300 / 300 Oral 240 / 600 Output: Urine 900 / 900 Other: Urine Color Pale Yellow Urine Appearance Clear Urine Odor None Comment pT voided in [place]liet - no hat Voiding Methods Toilet Urinal Data Completed and Pending Labs on day of discharge: Labs from last 24 hours 10/23/22 10/23/22 10/23/22 06:35 06:35 06:35 WBC 19.46 H RBC 3.98 L Hgb 11.7 L Hct 36.0 L MCV 91 MCH 29.4 MCHC 32.5 RDW 14.9 H Plt Count 250 MPV 9.6 Immature Gran % 1.4 Neutrophils % 83.4 Lymphocytes % 9.3 Monocytes % 5.7 Eosinophils % 0.0 Basophils % 0.2 Nucleated RBC % 0.0 Absolute Neutrophils 16.23 H Absolute Lymphocytes 1.81 Absolute Monocytes 1.11 H Absolute Eosinophils 0.00 Absolute Basophils 0.04 Sodium 135 L Potassium 3.9 Chloride 100 Carbon Dioxide 26.1 Anion Gap 8.9 BUN 41 H Creatinine 2.1 H Est GFR (CKD-EPI 2020) 32.83 Glucose 171 H Calcium 8.8 Magnesium 2.1 Total Bilirubin 0.3 AST 16 ALT 21 Alkaline Phosphatase 78 C-Reactive Protein 0.34 H Total Protein 5.7 L Albumin 2.7 L Procalcitonin Urine Legionella Ag Add-On Test Request 10/22/22 10/22/22 10/22/22 14:15 12:20 06:15 WBC RBC Hgb Hct MCV MCH MCHC RDW Plt Count MPV Immature Gran % Neutrophils % Lymphocytes % Monocytes % Eosinophils % Basophils % Nucleated RBC % Absolute Neutrophils Absolute Lymphocytes Absolute Monocytes Absolute Eosinophils Absolute Basophils Sodium Potassium Chloride Carbon Dioxide Anion Gap BUN Creatinine Est GFR (CKD-EPI 2020) Glucose Calcium Magnesium Total Bilirubin AST ALT Alkaline Phosphatase C-Reactive Protein Total Protein Albumin Procalcitonin < 0.1 Urine Legionella Ag Pending Add-On Test Request DONE 10/22/22 14:15 Nose MRSA Screen - Pending Preliminary micro results at discharge 10/22/22 12:20 Blood Culture - Preliminary Blood NO GROWTH 24 HOURS 10/22/22 12:30 Blood Culture - Preliminary Blood NO GROWTH 24 HOURS 10/22/22 14:15 MRSA Screen - Pending Nose PFSH All Active Problems (Updated 10/23/22 @ 15:31 by Ariel Paul MD) COPD with exacerbation (Acute) Hypoxia (Acute) Syncope (Chronic) Acute kidney injury (Acute) DNI (do not intubate) (Acute) DNR (do not resuscitate) (Acute) POLST (Physician Orders for Life-Sustaining Treatment) (Acute) DNR/DNI signed by pt and son(DPOA) 11/02/20 Chronic post-traumatic stress disorder (PTSD) after combat (Chronic) apparent when delirious, hospitalized, stressed physically or mentally Alcoholic dementia (Acute) History of smoking (Acute) Hypertension (Chronic) Medical History (Updated 10/23/22 @ 15:31 by Ariel Paul MD) Abnormal gait Alcohol abuse Cataract [employer] of armed [employer] [facility] COPD (chronic obstructive pulmonary disease) Coronary artery disease COVID Depression Diverticulitis large intestine Edema Erectile dysfunction Goals of care, counseling/discussion Hepatitis C treated with Ribavirin and interferon. PCR qual neg 11/1999 History of delusional disorder when hospitalized, mentation deteriorates gets paranoid History of traumatic brain injury Impaired cognition Left rib fracture Left-sided carotid artery disease Memory loss Palliative care patient Peripheral vascular disease of extremity with claudication Pneumothorax, left Postoperative stroke August 2020, following left CEA Retinal hemorrhage, right eye Tobacco dependence quit 2019 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 central nervous system right hand/arm, following postop stroke Vascular dementia Vitamin D deficiency Surgical History (Updated 10/23/22 @ 15:31 by Ariel Paul MD) Closed left radial fracture s/p ORIF L distal radius 10/09/2018 H/O right knee surgery History of left-sided carotid endarterectomy Status post closed fracture of femur s/p repair Family History Son Diabetes Pancreatitis, acute Grandson No problems noted. Mother , age 95 from DM2 and heart disease Heart disease Diabetes Father , in his early 50s from etohism Alcohol use disorder Sister Colon cancer Granddaughter Substance use disorder Other Cancer Social History Smoking/Tobacco Use Status: Current every day Tobacco Type: cigarettes Smoking packs per day: 1 Smoking cigarettes per day: 20.0 Years smoked: 55 Smoking pack- years: 55.00 Tobacco: How many years used: 55 Second Hand Exposure: No Counseling given: provider counseling Smoking risk assessment performed?: Yes Alcohol Intake: current Alcohol Intake frequency: a few times a week Alcohol type: beer Counseling given: Yes Drug use: Daily Substance use type: marijuana Counseling given: No Caregiver/Support person: Yes Household members: family Housing: house Number of Children: 1 number of grandchildren: 3 Communication Needs: Hard of Hearing and Corrective Lenses Education Level: high school Do you need help understanding health information?: Always 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[employer], [employer], 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 Pets and animals: Yes Current gender identity: male What is your relationship status?: How often do you talk on the phone with friends or family?: never How often do you get together with friends or relatives?: twice per week Panel score (0-1 are the most socially isolated patients): 0 What type of physical activity do you participate in: walking and sedentary lifestyle Duration: 15-30 minutes/day Special roslyn needs: No Agree to transfusion: No Seatbelt use: sometimes Helmet use: No Working smoke detector in home: Yes Fire extinguisher in home: Yes Do you feel safe at home: Yes Do you feel safe in your relationship?: Yes Time Spent with Patient Time Spent with Patient: 45-69 minutes Time was spent: preparing to see the patient(eg.review tests), obtaining and/or reviewing separately otained hiistory, ordering medications,tests, procedures, referring, communicating with other health summer child caregiver, indepentently interpreting results and counseling the patient
--- NOTE | 2022-10-23 15:34 | PDOC.HHF2F ---
Home Health Referral Home Health Orders Clinical synopsis of why skilled professionals are needed: COPD exacerbation with hypoxia Medical diagnosis necessitation home health referral: Syncope, obtundation, demand ischemia Registered Nurse: Check all that apply Instruct on new or changed medication(s)/assess compliance: Ordered (Prednisone 40 mg daily x5 days) Assess for exacerbation of medical condition, instruct patient/caregivers on signs and symptoms to report for early detection: Ordered (Assess for worsening breathing, worsening oxygenation, maintain smoking cessation) Home Bound Status Assistance of another person (Describe assistance and medical necessity): Requires assistance of another person to leave the home Describe why leaving home would require a considerable and taxing effort: Requires frequent rest periods Encounter Date and Reason: I certify that a FTF encounter for this patient was performed on October 23, 2022 and that such encounter was related to the primary reason the patient requires home health services. The encounter was conducted in the following manner: By me as the certifying physician, PRINCIPAL BIOSTATISTICIAN, PA or By an inpatient physician, PRINCIPAL BIOSTATISTICIAN or PA during an inpatient stay who communicated findings to me, Certification And Authentication I certify that I composed the above information based on my clinical judgment relating to this patient's medical condition and, if applicable, clinical findings communicated to me by the NPP or inpatient physician who performed the FTF encounter. Name of Provider that will be monitoring home health services: Cierra Albright
--- NOTE | 2022-10-23 15:56 | CHAPLAIN ---
Fred was sitting on his bed looking at magazines when I visited. He also had word searches there. He was pleasant and joked that he could use to [employer] when I asked if I could get him anything. I explained my role and offered support.
--- NOTE | 2022-10-23 16:16 | PDOC.CMDIS ---
Date of service: 10/23/22 Time of Service: 16:16 LACE Index Scoring Tool Questions: Length of Stay (in days): 3 Was the patient admitted via the E.D.?: Yes Comorbidities: Cerebrovascular Disease, Chronic Pulmonary Disease and Dementia E.D. Visits: 2 Answers: Total Score: 13 Risk of Readmission: High Risk Care Management Discharge Plan Reason for Hospitalization: COPD with exacerbation Discharge Plan: Evert will be discharged home with a resumption of home health nursing. He will follow up with his PCP and plan of care and transport with family. Patient/Family Education Needs: Review of discharge instructions, limitations, follow up plan, discuss Ask Me Three
[2022-10-23 23:31] LABS: Streptococcus Pneumoniae Ag, U Negative (Negative)
[2022-10-24 00:12] LABS: Legionella Ag Detection Urine Negative (Negative)
--- NOTE | 2022-10-24 09:04 | INDS_ITS ---
PT Notes Visit Reasons: COPD Inpatient Physical Therapy Discharge Summary Date: 10/24/22 Dates of Service: 10/21/22 - 10/23/22 Referring Doctor: Portillo Post PT Orders: PT CONSULT: exacerbation chronic condition This document serves as a summary of care. No PT services were provided on this date. Patient Profile/Admitting Diagnosis: Fred is a 71-year-old male with history of COPD, coronary disease, recent diagnosis of diabetes presented to ED yesterday via EMS after family called for lethargy and decreased SPO2 at home. Patient participated in 5 sessions of PT intervention over the course of 3 days. He was able to demonstrate safety and mobility sufficient to allow for safe return home with resumption of services. 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) right hand/arm, following postop strokeChronic post-traumatic stress disorder (PTSD) after combat (Chronic) apparent when delirious, hospitalized, stressed physically or mentallyHistory of delusional disorder (Acute) when hospitalized, mentation deteriorates gets paranoidPostoperative stroke (Chronic) August 2020, following left CEAHistory of left-sided carotid endarterectomy (Acute) Left-sided carotid artery disease (Acute) 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 Abnormal gait Alcohol abuse Cataract Coronary artery disease Depression Erectile dysfunction Hepatitis C treated with Ribavirin and interferon. PCR qual neg 11/1999Impaired cognition Memory loss Palliative care patient Tobacco dependence quit 2020Vitamin D deficiency Surgical History? H/O right knee surgery Status post closed fracture of femur s/p repair Social History/Home Situation: Lives in a private home with his son and his girlfriend. Evert notes that his son's girlfriend takes good care of him doing all of the housework, laundry and providing him meals. He does not drive anymore. He has 3 steps to enter home. Does not have a shower chair however does have grab bars in shower. Notes that he takes a very quick shower for feels unsteady. Current Functional Limitations: decreased activity tolerance, SOB, decreased mobility, limited walking tolerance. Has utilized a FWW for quite some time Equipment Owned/DME: FWW Subjective: none Objective: ROM: Right Upper Extremity: Demonstrates WFL AROM R UE Left Upper Extremity: Demonstrates WFL AROM L UE Right Lower Extremity: Hip flexion tolerable to 100 degrees, abduction 35 degrees, knee flexion/ knee extension WFL, DF/PF significantly limited Left Lower Extremity: Hip flexion tolerable to 100 degrees, abduction 30 degrees, knee flexion/extension WFL, limited ankle DF/PF Strength: Right Upper Extremity: Shoulder flexion 4+/5, abduction 4/5, ER 4/5, Bicep 4+/5 good functional grasp Left Upper Extremity: Shoulder flexion 4+/5, abduction 4/5, ER 4/5, Bicep 4+/5, good functional grasp Right Lower Extremity: Hip flexion 4-/5, knee extension 4+/5, knee flexion 5/5, DF 4/5 Left Lower Extremity: Hip flexion 4-/5, knee extension 4+/5, knee flexion 5/5, DF 4/5 Bed Mobility/Transfers: Supine-sit: Independent Sit-supine: Independent sit-stand: SBA stand-sit: SBA ?Bed-Chair: SBA ?Chair-bed: SBA ?Ambulation ?Assistive Device: FWW ?Weight bearing: Full ?Assist: SBA ?Distance:? up to 115 feet?Deviation: Adequate step height, reduced stride length, stiff back bent forward at the hip. ? Stairs: ascends and descends 2 six inch stairs and 3 four inch stairs.? ? ? Balance: Static Sitting: Normal Dynamic Sitting: Normal Static Standing: Fair Dynamic Standing:Fair Assessment: Patient is a 71 year old male referred to physical therapy services with the diagnosis of acute exacerbation of COPD. He participated in 5 sessions of PT intervention over the course of 3 days. He was able to demonstrate safety and mobility sufficient to allow for safe return home with resumption of services. Goals: Goals X1 week 1. Supine-Sit Independent (MET) 2. Sit-Supine Independent(MET) 3. Sit-Stand Independent(MET) 4. Stand-Sit Independent(MET) 5. Bed-Chair Independent with FWW (Progressing Toward) 6. Chair-Bed Independent with FWW (Progressing Toward) 7. Gait - Independent with use of FWW 300 ft or greater without increased dyspnea (Progressing Toward) 8. Stairs up/down 3 steps with use of railing (MET) 9. Independent with home exercise program (MET) 10. Demonstrate improved static/dynamic standing balance (Progressing Toward) Plan of Care/Treatment Plan: D/C from PT in acute care setting DISCHARGE RECOMMENDATIONS: Home with services Home Health PT/OT to promote improved functional mobility as well as to address need for further adaptive equipment in home Thank you for the opportunity to participate in the care of this patient. TREATMENT CODE/TIME: none Juliet Amato, PT, DPT [place] [facility]
[2022-10-25 15:11] LABS: Mycoplasma Pneumoniae PCR Negative; Specimen source Nasal
== END 2022-10-23 18:07 | disposition home health service (06) | DRG 191 ==
LOC: ER 10-21 00:35 → MS 10-21 01:28
PROVIDERS: Nurse Practitioner Family; Student in an Organized Health Care Education/Training Program; Admitting Provider General Practice; Emergency Provider Emergency Medicine; PCP Internal Medicine Geriatric Medicine; Visit Provider General Practice
DX: J44.1 Chronic obstructive pulmonary disease with (acute) exacerbation (principal); I24.8 Other forms of acute ischemic heart disease; N17.9 Acute kidney failure, unspecified; R09.02 Hypoxemia; F01.50 Vascular dementia, unspecified severity, without behavioral disturbance, psychotic disturbance, mood disturbance, and anxiety; I10 Essential (primary) hypertension; Z66 Do not resuscitate; R60.0 Localized edema; G25.2 Other specified forms of tremor; I69.398 Other sequelae of cerebral infarction; Z87.820 Personal history of traumatic brain injury; F10.97 Alcohol use, unspecified with alcohol-induced persisting dementia; I73.9 Peripheral vascular disease, unspecified; R26.9 Unspecified abnormalities of gait and mobility; I25.10 Atherosclerotic heart disease of native coronary artery without angina pectoris; F32.A Depression, unspecified; E55.9 Vitamin D deficiency, unspecified; F17.210 Nicotine dependence, cigarettes, uncomplicated; I65.21 Occlusion and stenosis of right carotid artery
CPT/HCPCS: 36410; 36415; 36416; 80053; 82962; 84145; 87040; 87081; 87449; 87637; 93005; 94640; 96361; 96365; 96368; 96375; 97110; 97140; 97162; 99285; J1650; 70450; 71046; 81003; 81015; 83036; 83735; 84484; 85025; 86140; 87581; 87899; 93010; 93880; 94664; 94760; 99222; 99232; 99239; J0456; J0696; J1100; J3490; J7512; J7620